=== PATIENT | female | born 1985 | race Caucasian/White ===

== ENCOUNTER 2016-07-11 06:20 | Outpatient (CLI) | payer MEDICAID ==
[~2016-07-11] VITALS: Ht 170.2 cm; Wt 145.1 kg
[~2016-07-11 06:20] MED LIST: AC500T PO; AMOX500C2 PO; AMX500CIP PO; BCP; CODE-54 PO; DCS100C PO; FAMO-119 PO; FRS325T PO; HYDR-1231 PO; HYDR-757 PO; IBP600T1 PO; IBUP-1780 PO; PNV1TABL59 PO; PRM25T PO; SUCR1TAB36 PO; TRAM50TA2 PO
--- OUTSIDE RECORDS SUMMARY | 2016-07-11 06:23 | XMS REPORT | Continuity of Care Document ---
Author Author [facility] Address Unknown Phone Unavailable Allergies Active Description Code Type Severity Reaction Onset Reported/Identified Relationship to Patient Clinical Status Yes NKANo Known Allergies NKA Miscellaneous Allergy Unknown N/ A 07/18/2005 Yes ACETAMINOPHEN ACETAMINOPHEN Mild CORICIDIN CAUSE 09/02/2005 Yes CHLORPHENAMINE CHLORPHENAMINE Mild CORICIDIN CAUSE 09/02/2005 Yes No Known Drug Allergies [id number] Drug Allergy Unknown N/ A 11/13/2007 Medications Problems Date Dx Coded Attending Type Code Diagnosis Diagnosed By 09/05/2011 Ot 346.90 MIGRAINE UNSPECIFIED W/O INTRACT MGRN W/ 09/05/2011 Ot 784.0 HEADACHE 10/28/2011 784.0 headache 10/28/2011 EMIL MILLS DO K 784.0 headache 10/28/2011 PAUL ULLOA MD 784.0 headache 10/28/2011 KARI BOWERS APRN S 784.0 headache 10/28/2011 YUMI NEWMAN LOU R 784.0 headache 10/28/2011 FELIZ MARIANO APRN R 784.0 headache 10/28/2011 GUDELIA COLES MD 784.0 headache 04/18/2012 EMIL MILLS DO K V72.42 TEST POSITIVE RESULT 04/18/2012 PAUL ULLOA MD V72.42 TEST POSITIVE RESULT 04/18/2012 KARI BOWERS APRN S V72.42 TEST POSITIVE RESULT 04/18/2012 GARETT EASON APRNINA R V72.42 TEST POSITIVE RESULT 04/18/2012 FELIZ MARIANO APRN R V72.42 TEST POSITIVE RESULT 04/18/2012 GUDELIA COLES MD V72.42 TEST POSITIVE RESULT 04/25/2012 Ot 640.03 THREATEN ABORT-ANTEPART 04/27/2012 EMIL MILLS DO 640.00 THREATENED 04/27/2012 KASSY MCCLURE MD, PAUL A 640.00 THREATENED 04/27/2012 KARI BOWERS APRN S 640.00 THREATENED 04/27/2012 LOU EASON APRN R 640.00 THREATENED 04/27/2012 FELIZ MARIANO APRN R 640.00 THREATENED 04/27/2012 GUDELIA COLES MD 640.00 THREATENED 05/03/2012 Ot 276.50 VOLUME DEPLETION, UNSPECIFIED 05/03/2012 Ot 558.9 NONINF GASTROENTERIT NEC 05/03/2012 Ot 787.03 VOMITING ALONE 07/29/2012 Ot 780.60 FEVER, UNSPECIFIED 10/23/2012 KASSY MCCLURE MD, PAUL A 388.30 ringing in the ears (tinnitus) 10/23/2012 KARI BOWERS APRN 388.30 ringing in the ears (tinnitus) 10/23/2012 LOU EASON APRN R 388.30 ringing in the ears (tinnitus) 10/23/2012 FELIZ MARIANO APRN R 388.30 ringing in the ears (tinnitus) 10/23/2012 GUDELIA COLES MD 388.30 ringing in the ears (tinnitus) 11/27/2012 JIGAR RAE DO Ot 644.03 THRT BHAKTI LABOR-ANTEPART 02/16/2013 JIGAR RAE DO Ot 648.93 OTH CURR COND-ANTEPARTUM 02/16/2013 JIGAR RAE DO Ot 789.00 ABDOMINAL PAIN, UNSPECIFIED SITE 02/25/2013 FENECH DO KIMBERLEE S Ot 644.13 THREAT LABOR NEC-ANTEPAR 02/28/2013 JIGAR RAE DO Ot 278.00 OBESITY, NOS 02/28/2013 JIGAR RAE DO Ot 648.81 ABN GLUCOSE BORIS-DELIV 02/28/2013 JIGAR RAE DO Ot 649.01 TOBACCO USE DISORDER COMP PREG/CHILDBIRT 02/28/2013 JIGAR RAE DO Ot 649.11 OBESITY COMP PREG/CHILDBIRTH/PUERPERIUM, 02/28/2013 JIGAR RAE DO Ot 659.71 ABN DEL FET HT RT/RHYTHM,W OR W/O MENTIO 02/28/2013 IJGAR RAE DO Ot 663.31 CORD ENTANGLE NEC-DELIV 02/28/2013 JIGAR RAE DO Ot V27.0 DELIVER-SINGLE LIVEBORN 02/28/2013 JIGAR RAE DO Ot V85.42 BODY MASS INDEX 45.0-49.9, ADULT 06/09/2013 KARI BOWERS APRN S 278.00 OBESITY 06/09/2013 KARI BOWERS APRN S 300.00 ANXIETY UNSPEC 06/09/2013 KARI BOWERS APRN S V70.0 EXAM - ROUTINE H&P 06/09/2013 GARETT EASON APRNINA R 278.00 OBESITY 06/09/2013 LOU EASON APRN R 300.00 ANXIETY UNSPEC 06/09/2013 LOU EASON APRN R V70.0 EXAM - ROUTINE H&P 06/09/2013 FELIZ MARIANO APRN R 278.00 OBESITY 06/09/2013 FELIZ MARIANO APRN R 300.00 ANXIETY UNSPEC 06/09/2013 FELIZ MARIANO APRN R V70.0 EXAM - ROUTINE H&P 06/09/2013 GUDELIA COLES MD 278.00 OBESITY 06/09/2013 GUDELIA COLES MD 300.00 ANXIETY UNSPEC 06/09/2013 GUDELIA COLES MD V70.0 EXAM - ROUTINE H&P 07/13/2013 GARETT EASON APRNINA R 521.00 UNSPECIFIED DENTAL CARIES 07/13/2013 LOU EASON APRN R 724.2 LUMBAGO/ LOW BACK PAIN 07/13/2013 FELIZ MARIANO APRN R 521.00 UNSPECIFIED DENTAL CARIES 07/13/2013 FELIZ MARIANO APRN R 724.2 LUMBAGO/ LOW BACK PAIN 07/13/2013 GUDELIA COLES MD 521.00 UNSPECIFIED DENTAL CARIES 07/13/2013 GUDELIA COLES MD 724.2 LUMBAGO/ LOW BACK PAIN 10/12/2013 FELIZ MARIANO APRN R 110.5 TINEA CORPORIS 10/12/2013 GUDELIA COLES MD 110.5 TINEA CORPORIS 03/11/2014 GUDELIA COLES MD V15.06 PERSONAL HISTORY OF ALLERGY TO INSECTS AND ARACHNIDS 04/04/2014 Ot 784.0 04/04/2014 ED EDMONDSON, TUCKER [place] Ot 521.00 UNSPEC DENTAL CARIES 04/04/2014 ED EDMONDSON, TUCKER [place] Ot 525.9 DENTAL DISORDER NOS 05/06/2014 JUSTIN MCLAIN ELECTRONIC ASSEMBLY Ot 634.90 SPON ABORT UNCOMPL-UNSP 05/06/2014 JUSTIN MCLAIN ELECTRONIC ASSEMBLY Ot 649.53 SPOTTING COMP , ANTEPARTUM COND 05/22/2014 Ot 784.0 05/22/2014 JUSTIN MCLAIN ELECTRONIC ASSEMBLY Ot 521.00 UNSPEC DENTAL CARIES 05/22/2014 JUSTIN MCLAIN ELECTRONIC ASSEMBLY Ot 525.9 DENTAL DISORDER NOS 05/23/2014 OMEGA SANDOVAL MD Ot 521.00 UNSPEC DENTAL CARIES 05/23/2014 OMEGA SANDOVAL MD Ot 784.92 JAW PAIN 05/23/2014 OMEGA SANDOVAL MD Ot 873.63 TOOTH (BROKEN) (FRACTURED) (DUE TO TRAUM 05/23/2014 OMEGA SANDOVAL MD Ot E000.8 OTHER EXTERNAL CAUSE STATUS 05/23/2014 OMEGA SANDOVAL MD Ot E928.9 ACCIDENT NOS 05/28/2014 ED EDMONDSON, TUCKER [place] Ot 521.00 UNSPEC DENTAL CARIES 05/28/2014 TUCKER WARD MD Ot 521.81 CRACKED TOOTH 05/28/2014 TUCKER WARD MD Ot 525.9 DENTAL DISORDER NOS 06/11/2015 Ot 784.0 06/11/2015 WEN SCHWARZ MD Ot K08.8 OTHER SPECIFIED DISORDERS OF TEETH AND S 06/11/2015 WEN SCHWARZ MD Ot Z53.21 PROC/TRTMT NOT CRD OUT D/T PT LV BEF SEE 12/25/2015 ORI EUGENE DO Ot E27.8 OTHER SPECIFIED DISORDERS OF ADRENAL GLA 12/25/2015 ORI EUGENE DO Ot E66.9 OBESITY, UNSPECIFIED 12/25/2015 ORI EUGENE DO Ot F17.210 NICOTINE DEPENDENCE, CIGARETTES, UNCOMPL 12/25/2015 ORI EUGENE DO Ot N28.1 CYST OF KIDNEY, ACQUIRED 12/25/2015 ORI EUGENE DO Ot R10.13 EPIGASTRIC PAIN 12/25/2015 Ot 784.0 HEADACHE 12/26/2015 ORI EUGENE DO Ot E27.8 OTHER SPECIFIED DISORDERS OF ADRENAL GLA 12/26/2015 ORI EUGENE DO Ot E66.9 OBESITY, UNSPECIFIED 12/26/2015 ORI EUGENE DO Ot F17.210 NICOTINE DEPENDENCE, CIGARETTES, UNCOMPL 12/26/2015 ORI EUGENE DO Ot N28.1 CYST OF KIDNEY, ACQUIRED 12/26/2015 ORI EUGENE DO Ot R10.13 EPIGASTRIC PAIN Procedures Code Description [place] [address] URINE TEST (IN-HOUSE) 04/18/2012 70721 URINE TEST (IN-HOUSE) 04/18/2012 30618 ROUTINE VENIPUNCTURE 04/27/2012 56502 HCG QUANTITATIVE 04/28/2012 73.6 02/27/2013 Results Test Result Range Complete urinalysis with reflex to culture - 12/25/15 05:22 Urine color determination YELLOW NRG Urine clarity determination SLIGHTLY CLOUDY NRG Urine pH measurement by test strip 5 5- 9 Specific gravity of urine by test strip 1.020 1.016-1.022 Urine protein assay by test strip, semi-quantitative NEGATIVE NEGATIVE Urine glucose detection by automated test strip NEGATIVE NEGATIVE Erythrocytes detection in urine sediment by light microscopy 5+ NEGATIVE Urine ketones detection by automated test strip NEGATIVE NEGATIVE Urine nitrite detection by test strip NEGATIVE NEGATIVE Urine total bilirubin detection by test strip NEGATIVE NEGATIVE Urine urobilinogen measurement by automated test strip (mass/volume) NORMAL NORMAL Urine leukocyte esterase detection by dipstick 2+ NEGATIVE Automated urine sediment erythrocyte count by microscopy (number/high power field) [HPF] NRG Automated urine sediment leukocyte count by microscopy (number/high power field ) RARE NRG Bacteria detection in urine sediment by light microscopy TRACE NRG Squamous epithelial cells detection in urine sediment by light microscopy 5-10 NRG Crystals detection in urine sediment by light microscopy NONE NRG Casts detection in urine sediment by light microscopy NONE NRG Mucus detection in urine sediment by light microscopy NEGATIVE NRG Complete urinalysis with reflex to culture NO NRG Complete blood count (CBC) with automated white blood cell (WBC) differential - 12/25/15 05:31 Blood leukocytes automated count (number/volume) 8.3 10*3/ uL 4.3-11.0 Blood erythrocytes automated count (number/volume) 4.58 10*6 /uL 4.35-5.85 Venous blood hemoglobin measurement (mass/volume) 13.9 g/dL 11.5-16.0 Blood hematocrit (volume fraction) 41 % 35-52 Automated erythrocyte mean corpuscular volume 90 [foz_us] 80-99 Automated erythrocyte mean corpuscular hemoglobin (mass per erythrocyte) 30 pg 25-34 Automated erythrocyte mean corpuscular hemoglobin concentration measurement ( mass/volume) 34 g/dL 32-36 Automated erythrocyte distribution width ratio 12.8 % 10.0-14.5 Automated blood platelet count (count/volume) 275 10*3/uL 130-400 Automated blood platelet mean volume measurement 10.4 [foz_ us] 7.4-10.4 Automated blood neutrophils/100 leukocytes 42 % 42-75 Automated blood lymphocytes/100 leukocytes 45 % 12-44 Blood monocytes/100 leukocytes 8 % 0-12 Automated blood eosinophils/100 leukocytes 5 % 0-10 Automated blood basophils/100 leukocytes 1 % 0-10 Blood neutrophils automated count (number/volume) 3.5 10*3 1.8-7.8 Blood lymphocytes automated count (number/volume) 3.7 10*3 1.0-4.0 Blood monocytes automated count (number/volume) 0.6 10*3 0.0-1.0 Automated eosinophil count 0.4 10*3/uL 0.0-0.3 Automated blood basophil count (count/volume) 0.0 10*3/uL 0.0-0.1 Comprehensive metabolic panel - 12/25/15 05:31 Serum or plasma sodium measurement (moles/volume) 139 mmol/ L 135-145 Serum or plasma potassium measurement (moles/volume) 4.3 mmol/L 3.6-5.0 Serum or plasma chloride measurement (moles/volume) 109 mmol /L 98-107 Carbon dioxide 21 mmol/L 21-32 Serum or plasma anion gap determination (moles/volume) 9 mmol/L 5-14 Serum or plasma urea nitrogen measurement (mass/volume) 14 mg/dL 7-18 Serum or plasma creatinine measurement (mass/volume) 0.71 mg /dL 0.60-1.30 Serum or plasma urea nitrogen/creatinine mass ratio 20 NRG Serum or plasma creatinine measurement with calculation of estimated glomerular filtration rate > NRG Serum or plasma glucose measurement (mass/volume) 109 mg/dL 70-105 Serum or plasma calcium measurement (mass/volume) 8.8 mg/dL 8.5-10.1 Serum or plasma total bilirubin measurement (mass/volume) 0.2 mg/dL 0.1-1.0 Serum or plasma alkaline phosphatase measurement (enzymatic activity/volume) 61 U/L 40-136 Serum or plasma aspartate aminotransferase measurement (enzymatic activity/ volume) 15 U/L 5-34 Serum or plasma alanine aminotransferase measurement (enzymatic activity/volume ) 21 U/L 0-55 Serum or plasma protein measurement (mass/volume) 7.0 g/dL 6.4-8.2 Serum or plasma albumin measurement (mass/volume) 3.8 g/dL 3.2-4.5 Serum or plasma amylase measurement (enzymatic activity/volume) - 12/25/15 05: 31 Serum or plasma amylase measurement (enzymatic activity/volume) 55 U/L 25-125 Lipase - 12/25/15 05:31 Lipase 60 U/L 8-78 Encounters ACCT No. Visit Date/Time Discharge Status Pt. Type Provider Facility Loc./Unit Complaint [id number] 03/11/2014 11:34:00 03/11/2014 23: 59:59 CLS Outpatient GUDELIA COLES MD [id number] 10/12/2013 14:34:00 10/12/2013 23: 59:59 CLS Outpatient FELIZ MARIANO APRN [id number] 07/13/2013 16:02:00 07/13/2013 23: 59:59 CLS Outpatient LOU EASON APRN [id number] 06/09/2013 09:53:00 06/09/2013 23: 59:59 CLS Outpatient KARI BOWERS APRN [id number] 10/23/2012 11:38:00 10/23/2012 23: 59:59 CLS Outpatient PAUL ULLOA MD [id number] 04/27/2012 14:48:00 04/27/2012 23: 59:59 [place] [id number] 04/18/2012 09:13:00 04/18/2012 23: 59:59 CLS Outpatient
[2016-07-11] MEDS ORDERED: LOVA10TA PO (15:22)
[2016-07-11] MEDS ORDERED: DICY10CA12 PO (15:22)
[2016-07-11] MEDS ORDERED: SPIR100T2 PO (15:22)
== END 2016-07-11 15:25 ==
LOC: PREOP 06:20
PROVIDERS: ATTEND Surgery
DX: Z01.818 Encounter for other preprocedural examination (principal); K21.9 Gastro-esophageal reflux disease without esophagitis; R10.12 Left upper quadrant pain

== ENCOUNTER 2016-07-16 07:58 | Day surgery (SDC) | payer MEDICAID ==
[~2016-07-16] VITALS: Ht 170.2 cm; Wt 145.1 kg
[~2016-07-16 07:58] MED LIST changes: +DICY10CA12 PO; +LOVA10TA PO; +SPIR100T2 PO
--- OUTSIDE RECORDS SUMMARY | 2016-07-16 08:02 | XMS REPORT | Continuity of Care Document ---
Author Author [facility] Address Unknown Phone Unavailable Allergies Active Description Code Type Severity Reaction Onset Reported/Identified Relationship to Patient Clinical Status Yes NKANo Known Allergies NKA Miscellaneous Allergy Unknown N/ A 07/18/2005 Yes ACETAMINOPHEN ACETAMINOPHEN Mild CORICIDIN CAUSE 09/02/2005 Yes CHLORPHENAMINE CHLORPHENAMINE Mild CORICIDIN CAUSE 09/02/2005 Yes No Known Drug Allergies [id number] Drug Allergy Unknown N/ A 11/13/2007 Medications [...] FET HT RT/RHYTHM,W OR W/O MENTIO 02/28/2013 JIGAR RAE DO Ot 663.31 CORD ENTANGLE NEC-DELIV [...] 525.9 DENTAL DISORDER NOS 05/06/2014 JUSTIN MCLAIN BODY AND FRAME MAN Ot 634.90 SPON ABORT UNCOMPL-UNSP 05/06/2014 JUSTIN MCLAIN BODY AND FRAME MAN Ot 649.53 SPOTTING COMP , ANTEPARTUM COND 05/22/2014 Ot 784.0 05/22/2014 JUSTIN MCLAIN BODY AND FRAME MAN Ot 521.00 UNSPEC DENTAL CARIES 05/22/2014 JUSTIN MCLAIN BODY AND FRAME MAN Ot 525.9 DENTAL DISORDER NOS 05/23/2014 OMEGA [...] ORI EUGENE DO Ot R10.13 EPIGASTRIC PAIN 07/12/2016 LUIS MENDOZA RANDOLPH Angela Ot K21.9 GASTRO-ESOPHAGEAL REFLUX DISEASE WITHOUT 07/12/2016 RANDOLPH SMITH DO Ot R10.12 LEFT UPPER QUADRANT PAIN 07/12/2016 SMITH RANDOLPH MENDOZA Ot Z01.818 ENCOUNTER FOR OTHER PREPROCEDURAL EXAMIN Procedures Code Description [place] [address] URINE TEST (IN-HOUSE) 04/18/2012 73953 URINE TEST (IN-HOUSE) 04/18/2012 54779 ROUTINE VENIPUNCTURE 04/27/2012 61123 HCG QUANTITATIVE 04/28/2012 73.6 02/27/2013 Results Test [...] Status Pt. Type Provider Facility Loc./Unit Complaint [id number] 03/11/2014 11:34:00 03/11/2014 23: 59:59 CLS Outpatient GUDELIA CLOES MD [id number] 10/12/2013 14:34:00 10/12/2013 23: 59:59 CLS Outpatient FELIZ MARIANO APRN [id number] 07/13/2013 16:02:00 07/13/2013 23: 59:59 CLS Outpatient LOU EASON APRN [id number] 06/09/2013 09:53:00 06/09/2013 23: 59:59 CLS Outpatient KARI BOWERS APRN [id number] 10/23/2012 11:38:00 10/23/2012 23: 59:59 CLS Outpatient KASSY MCCLURE MD, PAUL Ch [id number] 04/27/2012 14:48:00 04/27/2012 23: 59:59 [place] [id number] 04/18/2012 09:13:00 04/18/2012 23: 59:59 CLS Outpatient
--- OUTSIDE RECORDS SUMMARY | 2016-07-16 08:02 | XMS REPORT | Continuity of Care Document ---
Author Author [facility] Address Unknown Phone Unavailable Allergies Active Description Code Type Severity Reaction Onset Reported/Identified Relationship to Patient Clinical Status Yes NKANo Known Allergies NKA Miscellaneous Allergy Unknown N/ A 07/18/2005 Yes ACETAMINOPHEN ACETAMINOPHEN Mild CORICIDIN CAUSE 09/02/2005 Yes CHLORPHENAMINE CHLORPHENAMINE Mild CORICIDIN CAUSE 09/02/2005 Yes No Known Drug Allergies [id number] Drug Allergy Unknown N/ A 11/13/2007 Medications [...] 525.9 DENTAL DISORDER NOS 05/06/2014 JUSTIN MCLAIN LENS GENERATOR Ot 634.90 SPON ABORT UNCOMPL-UNSP 05/06/2014 JUSTIN MCLAIN LENS GENERATOR Ot 649.53 SPOTTING COMP , ANTEPARTUM COND 05/22/2014 Ot 784.0 05/22/2014 JUSTIN MCLAIN LENS GENERATOR Ot 521.00 UNSPEC DENTAL CARIES 05/22/2014 JUSTIN MCLAIN LENS GENERATOR Ot 525.9 DENTAL DISORDER NOS 05/23/2014 OMEGA [...] Procedures Code Description [place] [address] URINE TEST (IN-HOUSE) 04/18/2012 55442 URINE TEST (IN-HOUSE) 04/18/2012 60330 ROUTINE VENIPUNCTURE 04/27/2012 07865 HCG QUANTITATIVE 04/28/2012 73.6 02/27/2013 Results Test [...] Status Pt. Type Provider Facility Loc./Unit Complaint [id number] 03/11/2014 11:34:00 03/11/2014 23: 59:59 CLS Outpatient GUDELIA COLES MD [id number] 10/12/2013 14:34:00 10/12/2013 23: 59:59 CLS Outpatient FELIZ MARIANO APRN [id number] 07/13/2013 16:02:00 07/13/2013 23: 59:59 CLS Outpatient LOU EASON APRN [id number] 06/09/2013 09:53:00 06/09/2013 23: 59:59 CLS Outpatient KARI BOWERS APRN [id number] 10/23/2012 11:38:00 10/23/2012 23: 59:59 CLS Outpatient KASSY MCCLURE MD, PAUL Ch [id number] 04/27/2012 14:48:00 04/27/2012 23: 59:59 [place] [id number] 04/18/2012 09:13:00 04/18/2012 23: 59:59 CLS Outpatient
[2016-07-16] MEDS ORDERED: NS IV 1000 ML 1,000 ML ONE (08:08)
[2016-07-16 08:34] VITALS: BP 111/64
[2016-07-16] MEDS ORDERED: NS IV 1000 ML 1,000 ML IV STA (08:39)
[2016-07-16] MEDS ORDERED: FLUMAZENIL (ROMAZICON) 0.1 MG/ML 5 ML VIAL INJ PRN (08:45)
[2016-07-16] MEDS ORDERED: HURRICAINE EXT TUBE (BENZOCAINE) XX PRN (08:45)
[2016-07-16] MEDS ORDERED: fentaNYL INJECTION 100 MCG/2 ML AMP IVP PRN (08:45)
[2016-07-16] MEDS ORDERED: MIDAZOLAM 2 MG/2 ML (VERSED) VIAL IVP PRN (08:45)
[2016-07-16] MEDS ORDERED: NALOXONE 0.4 MG/ML 1 ML (NARCAN) VIAL IVP PRN (08:45)
[2016-07-16] MEDS ORDERED: proPOfol 200 MG/20 ML (DIPRIVAN) VIAL IV ONE ×2 (08:54→09:40)
[2016-07-16] MEDS ORDERED: MIDAZOLAM 2 MG/2 ML (VERSED) VIAL ONE (08:54)
--- NOTE | 2016-07-16 09:10 | Progress Note-Pre Operative ---
Pre-Operative Progress Note H&P Reviewed The H&P was reviewed, patient examined and no changes noted. Date H&P Reviewed: Jul 16, 2016 Time H&P Reviewed: 09:10 Pre-Operative Diagnosis: gerd, left upper quadrant pain RANDOLPH SMITH DO Jul 16, 2016 9:10 am
[2016-07-16] MEDS ORDERED: OMEP20TA33 PO (09:47)
[2016-07-16] MEDS ORDERED: SUCR1TAB36 PO (09:47)
--- NOTE | 2016-07-16 09:49 | Discharge Inst-Simple/Standard ---
Discharge Inst-Standard Discharge Medications New, Converted or Re-Newed RX: Transmitted to Pharmacy Patient Instructions/Follow Up Plan of Care/Instructions/FU: Follow up with Dr. Henry in 2 weeks Take medications as directed Stop Ibuprofen Activity as Tolerated: Yes Discharge Diet: No Restrictions FLY SERNA APRN Jul 16, 2016 09:49
--- NOTE | 2016-07-16 09:53 | Progress Note-Post Operative ---
Post-Operative Progess Note Pre-Operative Diagnosis gerd, left upper quadrant pain Post-Operative Diagnosis duodenitis, gastritis, healing ulcer, hiatal hernia, esophagitis Post-Op Procedure Note Date of Procedure: Jul 16, 2016 Name of Procedure: egd c biopsies Procedure Note/Findings see note Anesthesia Type per habitat conservation planner Estimated blood loss (mL): none Specimen(s) collected antrum, distal esophagus RANDOLPH SMITH DO Jul 16, 2016 9:52 am
[2016-07-16] MEDS ORDERED: HURRICAINE EXT TUBE (BENZOCAINE) ONE (10:05)
[2016-07-16 10:15] VITALS: BP 120/70
[2016-07-16 10:45] VITALS: BP 118/71
[2016-07-16 11:05] VITALS: BP 118/71
--- NOTE | 2016-07-16 13:23 | OPERATIVE REPORT ---
PROCEDURE PHYSICIAN: RANDOLPH SMITH DATE OF PROCEDURE: 07/16/2016 PREOPERATIVE DIAGNOSIS: GERD, Left upper quadrant abdominal pain, POSTOPERATIVE DIAGNOSES: 1. Duodenitis. 2. Gastritis. 3. Healing ulcer stomach. 4. Hiatal hernia. 5. Esophagitis. PROCEDURE: EGD with biopsies. SURGEON: Elaine. ANESTHESIA: Per MARBLE RUBBER. ESTIMATED BLOOD LOSS: None. COMPLICATIONS: None. INDICATIONS: The patient is a 31-year-old female who has left upper quadrant abdominal pain and reflux symptoms. The patient understands risks and benefits of procedure and wished to proceed with the procedure. Consent was signed on the chart. PROCEDURE: The patient was taken to the endoscopy suite, placed in left lateral recumbent position. Timeout was performed. The scope was inserted in the mouth, down the esophagus, stomach and into the duodenum without difficulty. The first part of the duodenum had some erythematous changes consistent with duodenitis. The second part had normal appearance. The scope was slowly retracted back into the stomach where it was further insufflated demonstrating erythematous changes and some slight friability of the mucosa. Biopsy of the antrum was obtained. The scope was also retroflexed as well noting a small hiatal hernia. Some small healing ulcers appearance was present as well. The scope was slowly retracted back to the distal esophagus, which had erythematous changes. There is possibly a short segment of Choudhary's which biopsy was obtained. The scope was slowly retracted with completely removed noting no other pathology. The patient tolerated the procedure well without any complications. She was taken to recovery room in stable condition. RECOMMENDATIONS: The patient will be on Prilosec 20 mg twice a day and Carafate 1 gram 4 times a day. We will see how she is doing in approximately 3 weeks and follow-up on biopsies. Job ID: [id number] Dictated Date: 07/16/2016 09:55:30 Registered Respiratory Technician Date: 07/16/2016 13:15:17 / betzy
== END 2016-07-16 11:05 | disposition home or self-care (01) ==
LOC: ENDO 07:58
PROVIDERS: ATTEND Surgery
DX: K21.9 Gastro-esophageal reflux disease without esophagitis (principal); K44.9 Diaphragmatic hernia without obstruction or gangrene; K20.9 Esophagitis, unspecified; K29.70 Gastritis, unspecified, without bleeding; K29.80 Duodenitis without bleeding; K25.7 Chronic gastric ulcer without hemorrhage or perforation
CPT/HCPCS: 84703; 88305

== ENCOUNTER 2017-02-15 03:56 | Emergency (ER) | payer MEDICAID, OTHER ==
[~2017-02-15] VITALS: Ht 170.2 cm; Wt 127.0 kg
[~2017-02-15 03:56] MED LIST changes: +OMEP20TA33 PO
[2017-02-15] MEDS ORDERED: NS IV 1000 ML 1,000 ML IV ONE (04:16)
[2017-02-15] MEDS ORDERED: NORG1TAB7 (04:18)
[2017-02-15] MEDS ORDERED: PANT40TA3 (04:18)
[2017-02-15] MEDS ORDERED: SUCR1TAB (04:18)
[2017-02-15 04:21] LABS: BILIRUBIN,URINE NEGATIVE (NEGATIVE); KETONES,URINE NEGATIVE (NEGATIVE); LEUKOCYTE ESTERASE ,URINE 3+ (NEGATIVE); NITRITE,URINE NEGATIVE (NEGATIVE); PH,URINE 5 (5-9); PROTEIN,URINE 2+ (NEGATIVE); UROBILINOGEN,URINE NORMAL (NORMAL)
[2017-02-15 04:28] LABS: WBC,URINE 0-2 /HPF
[2017-02-15] MEDS ORDERED: FAMOTIDINE 20MG/2ML IV (PEPCID) IVP ONE (04:30)
[2017-02-15] MEDS ORDERED: ONDANSETRON 4 MG/2 ML (SDV) Z0FRAN IVP ONE (04:30)
[2017-02-15 04:42] LABS: BASOPHILS % (AUTO) 0 % (0-10); EOSINOPHILS # (AUTO) 0.3 10^3/uL (0.0-0.3); EOSINOPHILS % (AUTO) 2 % (0-10); LYMPHOCYTES # (AUTO) 2.6 X 10^3 (1.0-4.0); LYMPHOCYTES % (AUTO) 15 % (12-44); MEAN CORPUSCULAR HEMOGLOBIN 31 PG (25-34); MEAN CORPUSCULAR HGB CONC 34 G/DL (32-36); MEAN CORPUSCULAR VOLUME 91 FL (80-99); MEAN PLATELET VOLUME 10.1 FL (7.4-10.4); MONOCYTES # (AUTO) 1.5 X 10^3 (0.0-1.0); MONOCYTES % (AUTO) 8 % (0-12); NEUTROPHILS % (AUTO) 75 % (42-75); PLATELET COUNT 339 10^3/uL (130-400); RED BLOOD COUNT 5.22 10^6/uL (4.35-5.85); RED CELL DISTRIBUTION WIDTH 12.9 % (10.0-14.5); WHITE BLOOD COUNT 17.4 10^3/uL (4.3-11.0)
[2017-02-15 05:01] LABS: ALANINE AMINOTRANSFERASE 31 U/L (0-55); ALBUMIN 4.4 GM/DL (3.2-4.5); ANION GAP 15 MMOL/L (5-14); ASPARTATE AMINO TRANSFERASE 22 U/L (5-34); BAND NEUTROPHILS 3 %; BASOPHILS % (MANUAL) 0 %; BILIRUBIN,TOTAL 0.6 MG/DL (0.1-1.0); BLOOD UREA NITROGEN 12 MG/DL (7-18); BUN/CREATININE RATIO 14; CALCIUM 9.9 MG/DL (8.5-10.1); CARBON DIOXIDE 19 MMOL/L (21-32); CHLORIDE 106 MMOL/L (98-107); CREATININE SERUM 0.85 MG/DL (0.60-1.30); EOSINOPHILS % (MANUAL) 2 %; GFR ESTIMATED > 60; GLUCOSE 118 MG/DL (70-105); LIPASE 31 U/L (8-78); LYMPHOCYTES % (MANUAL) 12 %; NEUTROPHILS % (MANUAL) 69 %; POTASSIUM 3.9 MMOL/L (3.6-5.0); REACTIVE LYMPHOCYTES 8 %; SODIUM 140 MMOL/L (135-145); TOTAL PROTEIN 8.9 GM/DL (6.4-8.2)
--- NOTE | 2017-02-15 05:04 | ED GI ---
General Chief Complaint: Abdominal/GI Problems Stated Complaint: VOMITING,NAUSEA,DIARRHEA Nursing Triage Note: PT TO ED 10 W/ C/O N/V/D ONSET X3 DAYS, WORSE SINCE 0000. Sepsis Screen: No Definite Risk Source of Information: Patient Exam Limitations: No Limitations History of Present Illness Time Seen By Provider: 04:05 Initial Comments This 31-year-old woman presents to the emergency room with complaints of nausea , vomiting, and diarrhea for the past 2 days. Symptoms became severe this morning. She has a log stated daily upper abdominal pain from chronic gastritis for which she is being treated by Dr. Henry. She denies any fever but does have diffuse myalgias. Allergies and Home Medications Allergies Coded Allergies: NKANo Known Allergies (Verified Allergy, Unknown, 07/18/05) Home Medications Dicyclomine HCl 10 Mg Capsule, 10 MG PO TID, (Reported) Lovastatin 10 Mg Tablet, 10 MG PO DAILY, (Reported) Norgestimate-Ethinyl Estradiol 1 Each Tablet, (Reported) Omeprazole Magnesium 20 Mg Tablet., 20 MG PO BID, #60 Ref 3 Prescribed by: FLY JACOBSON on 07/16/16 0947 Ondansetron 4 Mg Tab.rapdis, 4 MG SL Q4H PRN for NAUSEA/VOMITING-1ST LINE, #10 Prescribed by: TUCKER CLINE on 02/15/17 0534 Pantoprazole Sodium 40 Mg Tablet., (Reported) Spironolactone 100 Mg Tablet, 100 MG PO BID, (Reported) Sucralfate 1 Gm Tablet, 1 GM PO QID, #120 Prescribed by: FLY JACOBSON on 07/16/16 0947 Sucralfate 1 Gm Tablet, (Reported) Review of Systems Constitutional: see HPI EENTM: No Symptoms Reported Respiratory: No Symptoms Reported Cardiovascular: No Symptoms Reported Gastrointestinal: See HPI Genitourinary: No Symptoms Reported Musculoskeletal: see HPI Skin: no symptoms reported Psychiatric/Neurological: No Symptoms Reported Endocrine: No Symptoms Reported Hematologic/Lymphatic: No Symptoms Reported Past Sjkkwes-Siohan-Bwekwl Hx Patient Social History Alcohol Use: Denies Use Recreational Drug Use: No Smoking Status: Current Everyday Smoker Type Used: Cigarettes Recent Foreign Travel: No Contact w/Someone Who Travel: No Recent Infectious Disease Expo: No Recent Hopitalizations: No Physical Abuse: No Sexual Abuse: No Mistreated: No Fear: No Immunizations Up To Date Tetanus Booster (TDap): Unknown Date of Influenza Vaccine: Feb 17, 2012 Seasonal Allergies Seasonal Allergies: No Surgeries History of Surgeries: Yes (DENTAL) Surgeries: Abdominal (EGD) Respiratory History of Respiratory Disorde: No Cardiovascular History of Cardiac Disorders: Yes Cardiac Disorders: Hypertension Neurological History of Neurological Disord: No Reproductive System : No Hx Reproductive Disorders: Yes ("LOW TESTOSTERONE" ) Sexually Transmitted Disease: No HIV/AIDS: No Female Reproductive Disorders: Denies Genitourinary History of Genitourinary Disor: No Gastrointestinal History of Gastrointestinal Di: Yes (chronic gastritis) Gastrointestinal Disorders: Gastroesophageal Reflux Musculoskeletal History of Musculoskeletal Dis: Yes Musculoskeletal Disorders: Chronic Back Pain Endocrine History of Endocrine Disorders: No HEENT History of HEENT Disorders: No Cancer History of Cancer: No Psychosocial History of Psychiatric Problem: Yes Behavioral Health Disorders: Anxiety Suicide Risk Score: 0 Integumentary History of Skin or Integumenta: No Blood Transfusions History of Blood Disorders: No Adverse Reaction to a Blood Tr: No Physical Exam Vital Signs VS - Last 72 Hours, by Label 02/15/17 04:05 Temp 98.6 Pulse 95 Resp 20 B/P (MAP) 140/93 Pulse Ox 96 O2 Delivery Room Air Capillary Refill : Less Than 3 Seconds General Appearance: WD/WN, no apparent distress HEENT: PERRL/EOMI, normal ENT inspection, pharynx normal, other (oropharynx somewhat dry) Neck: normal inspection Respiratory: lungs clear, normal breath sounds, no respiratory distress, no accessory muscle use Cardiovascular: no edema, no murmur, tachycardia Gastrointestinal: normal bowel sounds, soft, tenderness (epigastrium) Extremities: normal inspection, no pedal edema Neurologic/Psychiatric: production assistant II-XII nml as tested, no motor/sensory deficits, alert, normal mood/affect, oriented x 3 Skin: normal color, warm/dry Progress/Results/Core Measures Results/Orders Lab Results Laboratory Tests Test 02/15/17 04:14 02/15/17 04:28 Range/Units Urine Color YELLOW Urine Clarity CLOUDY H Urine pH 5 5-9 Urine Specific [place] 1.020 1.016-1.022 Urine Protein 2+ H NEGATIVE Urine Glucose (UA) NEGATIVE NEGATIVE Urine Ketones NEGATIVE NEGATIVE Urine Nitrite NEGATIVE NEGATIVE Urine Bilirubin NEGATIVE NEGATIVE Urine Urobilinogen NORMAL NORMAL MG/DL Urine Leukocyte Esterase 3+ H NEGATIVE Urine RBC (Auto) 4+ H NEGATIVE Urine RBC 0-2 /HPF Urine WBC 0-2 /HPF Urine Squamous Epithelial Cells 10-25 H /HPF Urine Crystals NONE /LPF Urine Bacteria LARGE H /HPF Urine Casts NONE /LPF Urine Mucus SMALL H /LPF Urine Culture Indicated YES White Blood Count 17.4 H 4.3-11.0 10^3/uL Red Blood Count 5.22 4.35-5.85 10^6/uL Hemoglobin 16.0 11.5-16.0 G/DL Hematocrit 47 35-52 % Mean Corpuscular Volume 91 80-99 FL Mean Corpuscular Hemoglobin 31 25-34 PG Mean Corpuscular Hemoglobin Concent 34 32-36 G/DL Red Cell Distribution Width 12.9 10.0-14.5 % Platelet Count 339 130-400 10^3/uL Mean Platelet Volume 10.1 7.4-10.4 FL Neutrophils (%) (Auto) 75 42-75 % Lymphocytes (%) (Auto) 15 12-44 % Monocytes (%) (Auto) 8 0-12 % Eosinophils (%) (Auto) 2 0-10 % Basophils (%) (Auto) 0 0-10 % Neutrophils # (Auto) 13.0 H 1.8-7.8 X 10^3 Lymphocytes # (Auto) 2.6 1.0-4.0 X 10^3 Monocytes # (Auto) 1.5 H 0.0-1.0 X 10^3 Eosinophils # (Auto) 0.3 0.0-0.3 10^3/uL Basophils # (Auto) 0.0 0.0-0.1 10^3/uL Neutrophils % (Manual) 69 % Lymphocytes % (Manual) 12 % Monocytes % (Manual) 6 % Eosinophils % (Manual) 2 % Basophils % (Manual) 0 % Band Neutrophils 3 % Reactive Lymphocytes 8 % Blood Morphology Comment NORMAL Sodium Level 140 135-145 MMOL/L Potassium Level 3.9 3.6-5.0 MMOL/L Chloride Level 106 98-107 MMOL/L Carbon Dioxide Level 19 L 21-32 MMOL/L Anion Gap 15 H 5-14 MMOL/L Blood Urea Nitrogen 12 7-18 MG/DL Creatinine 0.85 0.60-1.30 MG/DL Estimat Glomerular Filtration Rate > 60 BUN/Creatinine Ratio 14 Glucose Level 118 H 70-105 MG/DL Calcium Level 9.9 8.5-10.1 MG/DL Total Bilirubin 0.6 0.1-1.0 MG/DL Aspartate Amino Transf (AST/SGOT) 22 5-34 U/L Alanine Aminotransferase (ALT/SGPT) 31 0-55 U/L Alkaline Phosphatase 80 40-136 U/L Total Protein 8.9 H 6.4-8.2 GM/DL Albumin 4.4 3.2-4.5 GM/DL Lipase 31 8-78 U/L My Orders Orders - TUCKER WARD MD Cbc With Automated Diff (02/15/17 04:16) Comprehensive Metabolic Panel (02/15/17 04:16) Lipase (02/15/17 04:16) Ua Culture If Indicated (02/15/17 04:16) Saline Lock/Iv-Start (02/15/17 04:16) Ns Iv 1000 Ml (Sodium Chloride 0.9%) (02/15/17 04:16) Famotidine Injection (Pepcid Injection) (02/15/17 04:30) Ondansetron Injection (Zofran Injectio (02/15/17 04:30) Urine Culture (02/15/17 04:14) Manual Differential (02/15/17 04:28) Ketorolac Injection (Toradol Injection) (02/15/17 05:15) Rx-Ondansetron Po (Rx-Zofran Po) (02/15/17 05:30) Medications Given in ED Current Medications Medications Dose Ordered Sig/Moises Route Start Time Stop Time Status Last Admin Dose Admin Famotidine 20 mg ONCE ONCE IVP 02/15/17 04:30 02/15/17 04:31 DC 02/15/17 04:32 20 MG Ketorolac Tromethamine 30 mg ONCE ONCE IVP 02/15/17 05:15 02/15/17 05:16 DC 02/15/17 05:19 30 MG Ondansetron HCl 8 mg ONCE ONCE IVP 02/15/17 04:30 02/15/17 04:31 DC 02/15/17 04:31 8 MG Sodium Chloride 1,000 ml @ 0 mls/hr Q0M ONCE IV 02/15/17 04:16 02/15/17 04:17 DC 02/15/17 04:31 1,000 MLS/HR Vital Signs/I&O Vital Sign - Last 12Hours 02/15/17 04:05 Temp 98.6 Pulse 95 Resp 20 B/P (MAP) 140/93 Pulse Ox 96 O2 Delivery Room Air Blood Pressure Mean: 109 Progress Note : Progress Note Patient was treated with Pepcid, Zofran, IV fluids, and Toradol. She felt much better prior to dismissal. Leukocytosis was likely secondary to vomiting. Departure Impression Impression: Primary Impression: Nausea vomiting and diarrhea Additional Impressions: Leukocytosis Qualified Codes: D72.829 - Elevated white blood cell count, unspecified Gastritis Qualified Codes: K29.70 - Gastritis, unspecified, without bleeding Disposition: HOME, SELF-CARE Condition: Improved Departure-Patient Inst. Decision time for Depature: 05:30 Referrals: [facility] (PCP/Family) Primary Care Physician Patient Instructions: Acute Abdomen (Belly Pain), Adult (DC) Add. Discharge Instructions: Sip on plenty of clear liquids. Continue with your medications as previously prescribed. Gradually advance your diet with small quantities of bland food as tolerated. Dissolve Zofran under the tongue every 4 hours as needed for nausea and vomiting. Return to the emergency room if symptoms worsen. All discharge instructions reviewed with patient and/or family. Voiced understanding. Scripts Ondansetron (Zofran Odt) 4 Mg Tab.rapdis 4 MG SL Q4H Y for NAUSEA/VOMITING-1ST LINE, #10 TAB Prov: TUCKER WARD MD 02/15/17 TUCKER WARD MD Feb 15, 2017 05:04
[2017-02-15] MEDS ORDERED: KETOROLAC 30 MG/ML VIAL IVP ONE (05:15)
[2017-02-15] MEDS ORDERED: RX-ONDANSETRON 4 MG ODT (ZOFRAN) PPK #4 SL STA (05:30)
[2017-02-15] MEDS ORDERED: ONDA4TAB8 SL (05:34)
[2017-02-15 05:49] VITALS: BP 134/88
== END 2017-02-15 05:49 | disposition home or self-care (01) ==
LOC: EDUNIT# 03:56 → ER 04:00
DX: K29.70 Gastritis, unspecified, without bleeding (principal); D72.829 Elevated white blood cell count, unspecified; I10 Essential (primary) hypertension; K21.9 Gastro-esophageal reflux disease without esophagitis; F41.9 Anxiety disorder, unspecified; F17.210 Nicotine dependence, cigarettes, uncomplicated
CPT/HCPCS: 36415; 80053; 81000; 83690; 85007; 85027; 87088; 96361; 96374; 96375

== ENCOUNTER 2017-09-16 03:16 | Emergency (ER) | payer SELFPAY ==
[~2017-09-16] VITALS: Ht 170.2 cm; Wt 149.7 kg
[~2017-09-16 03:16] MED LIST changes: +NORG1TAB7 PO; +ONDA4TAB8 SL; +PANT40TA3 PO; +SUCR1TAB PO
--- OUTSIDE RECORDS SUMMARY | 2017-09-16 03:24 | XMS REPORT | Continuity of Care Document ---
Author Author [facility] Address Unknown Phone Unavailable Allergies Active Description Code Type Severity Reaction Onset Reported/Identified Relationship to Patient Clinical Status Yes NKANo Known Allergies NKA Miscellaneous Allergy Unknown N/A 07/18/2005 Yes ACETAMINOPHEN ACETAMINOPHEN Mild CORICIDIN CAUSE 09/02/2005 Yes CHLORPHENAMINE CHLORPHENAMINE Mild CORICIDIN CAUSE 09/02/2005 Yes No Known Drug Allergies [id number] Drug Allergy Unknown N/A 11/13/2007 Medications There is no data. Problems Date Dx Coded Attending Type Code Diagnosis Diagnosed By 11/08/2007 Ot 625.9 11/08/2007 Ot 646.83 11/09/2007 Ot 623.5 11/09/2007 Ot 654.73 09/05/2011 Ot 346.90 MIGRAINE UNSPECIFIED W/O INTRACT MGRN W/ 09/05/2011 Ot 784.0 HEADACHE 10/28/2011 784.0 headache 10/28/2011 EMIL MILLS DO K 784.0 headache 10/28/2011 KASSY MCCLURE MD, PAUL A 784.0 headache 10/28/2011 KARI BOWERS APRN S 784.0 headache 10/28/2011 LOU EASON APRN R 784.0 headache 10/28/2011 FELIZ MARIANO APRN R 784.0 headache 10/28/2011 GUDELIA COLES MD 784.0 headache 04/18/2012 EMIL MILLS DO V72.42 TEST POSITIVE RESULT 04/18/2012 PAUL ULLOA MD V72.42 TEST POSITIVE RESULT 04/18/2012 KARI BOWERS APRN S V72.42 TEST POSITIVE RESULT 04/18/2012 LOU EASON APRN R V72.42 TEST POSITIVE RESULT 04/18/2012 FELIZ MARIANO APRN R V72.42 TEST POSITIVE RESULT 04/18/2012 GUDELIA COLES MD V72.42 TEST POSITIVE RESULT 04/25/2012 Ot 640.03 THREATEN ABORT-ANTEPART 04/27/2012 EMIL MILLS DO 640.00 THREATENED 04/27/2012 PAUL ULLOA MD 640.00 THREATENED 04/27/2012 KARI BOWERS APRN S 640.00 THREATENED 04/27/2012 YUMI NEWMAN, LOU R 640.00 THREATENED 04/27/2012 FELIZ MARIANO APRN R 640.00 THREATENED 04/27/2012 GUDELIA COLES MD 640.00 THREATENED 05/03/2012 Ot 276.50 VOLUME DEPLETION, UNSPECIFIED 05/03/2012 Ot 558.9 NONINF GASTROENTERIT NEC 05/03/2012 Ot 787.03 VOMITING ALONE 07/29/2012 Ot 780.60 FEVER, UNSPECIFIED 10/23/2012 KASSY MCCLURE MD, PAUL Ch 388.30 ringing in the ears (tinnitus) 10/23/2012 KARI BOWERS APRN S 388.30 ringing in the ears (tinnitus) 10/23/2012 GARETT EASON APRNINA R 388.30 ringing in the ears (tinnitus) 10/23/2012 FELIZ MARIANO APRN R 388.30 ringing in the ears (tinnitus) 10/23/2012 GUDELIA COLES MD 388.30 ringing in the ears (tinnitus) 11/27/2012 JIGAR RAE DO Ot 644.03 THRT BHAKTI LABOR-ANTEPART 02/16/2013 JIGAR RAE DO Ot 648.93 OTH CURR COND-ANTEPARTUM 02/16/2013 JIGAR RAE DO Ot 789.00 ABDOMINAL PAIN, UNSPECIFIED SITE 02/25/2013 FENECH DOKIMBERLEE S Ot 644.13 THREAT LABOR NEC-ANTEPAR 02/28/2013 JIGAR RAE DO Ot 278.00 OBESITY, NOS 02/28/2013 JIGAR RAE DO Ot 648.81 ABN GLUCOSE BORIS-DELIV 02/28/2013 JIGAR RAE DO Ot 649.01 TOBACCO USE DISORDER COMP PREG/CHILDBIRT 02/28/2013 JIGAR RAE DO Ot 649.11 OBESITY COMP PREG/CHILDBIRTH/PUERPERIUM, 02/28/2013 JIGAR RAE DO Ot 659.71 ABN DEL FET HT RT/RHYTHM,W OR W/O MENTIO 02/28/2013 JIGAR RAE DO Stella Ot 663.31 CORD ENTANGLE NEC-DELIV 02/28/2013 KYRA MENDOZA JIGAR Douglas Ot V27.0 DELIVER-SINGLE LIVEBORN 02/28/2013 JIGAR RAE DO Ot V85.42 BODY MASS INDEX 45.0-49.9, ADULT 06/09/2013 KARI BOWERS APRN S 278.00 OBESITY 06/09/2013 KARI BOWERS APRN S 300.00 ANXIETY UNSPEC 06/09/2013 KARI BOWERS APRN S V70.0 EXAM - ROUTINE H&P 06/09/2013 LOU EASON APRN R 278.00 OBESITY 06/09/2013 GARETT EASON APRNINA R 300.00 ANXIETY UNSPEC 06/09/2013 LOU EASON APRN R V70.0 EXAM - ROUTINE H&P 06/09/2013 FELIZ MARIANO APRN R 278.00 OBESITY 06/09/2013 SHARITA MARIANO APRNIA R 300.00 ANXIETY UNSPEC 06/09/2013 RODOLFO MARIANO APRNRICIA R V70.0 EXAM - ROUTINE H&P 06/09/2013 GUDELIA COLES MD 278.00 OBESITY 06/09/2013 GUDELIA COLES MD 300.00 ANXIETY UNSPEC 06/09/2013 GUDELIA COLES MD V70.0 EXAM - ROUTINE H&P 07/13/2013 LOU EASON APRN R 521.00 UNSPECIFIED DENTAL CARIES 07/13/2013 LOU EASON APRN R 724.2 LUMBAGO/ LOW BACK PAIN 07/13/2013 SHARITA MARIANO APRNIA R 521.00 UNSPECIFIED DENTAL CARIES 07/13/2013 FELIZ [...] [place] Ot 521.00 UNSPEC DENTAL CARIES 04/04/2014 TUCKER WARD MD Ot 525.9 DENTAL DISORDER NOS 05/06/2014 JUSTIN MCLAIN [employer] Ot 634.90 SPON ABORT UNCOMPL-UNSP 05/06/2014 JUSTIN MCLAIN [employer] Ot 649.53 SPOTTING COMP , ANTEPARTUM COND 05/22/2014 Ot 784.0 05/22/2014 JUSTIN CMLAIN [employer] TE[employer]ER Ot 521.00 UNSPEC DENTAL CARIES 05/22/2014 JUSTIN MCLAIN [employer] TE[employer]ER Ot 525.9 DENTAL DISORDER NOS 05/23/2014 OMEGA SANDOVAL MD Ot 521.00 UNSPEC DENTAL CARIES 05/23/2014 OMEGA SANDOVAL MD Ot 784.92 JAW PAIN 05/23/2014 OMEGA SANDOVAL MD Ot 873.63 TOOTH (BROKEN) (FRACTURED) (DUE TO TRAUM 05/23/2014 OMEGA SANDOVAL MD Ot E000.8 OTHER EXTERNAL CAUSE STATUS 05/23/2014 OMEGA SANDOVAL MD Ot E928.9 ACCIDENT NOS 05/28/2014 TUCKER WARD MD Ot 521.00 UNSPEC DENTAL CARIES 05/28/2014 TUCKER [...] ORI EUGENE DO Ot R10.13 EPIGASTRIC PAIN 07/11/2016 RANDOLPH SMITH DO Ot K21.9 GASTRO-ESOPHAGEAL REFLUX DISEASE WITHOUT 07/11/2016 MARIO SMITH DOTT D Ot R10.12 LEFT UPPER QUADRANT PAIN 07/11/2016 RANDOLPH SMITH DO D Ot Z01.818 ENCOUNTER FOR OTHER PREPROCEDURAL EXAMIN 07/12/2016 RANDOLPH SMITH DO Ot K21.9 GASTRO-ESOPHAGEAL REFLUX DISEASE WITHOUT 07/12/2016 RANDOLPH SMITH DO Ot R10.12 LEFT UPPER QUADRANT PAIN 07/12/2016 RANDOLPH SMITH DO D Ot Z01.818 ENCOUNTER FOR OTHER PREPROCEDURAL EXAMIN 07/16/2016 RANDOLPH SMITH DO D Ot K20.9 ESOPHAGITIS, UNSPECIFIED 07/16/2016 RANDOLPH SMITH DO D Ot K21.9 GASTRO-ESOPHAGEAL REFLUX DISEASE WITHOUT 07/16/2016 RANDOLPH SMITH DO D Ot K25.7 CHRONIC GASTRIC ULCER WITHOUT HEMORRHAGE 07/16/2016 RANDOLPH SMITH DO D Ot K29.70 GASTRITIS, UNSPECIFIED, WITHOUT BLEEDING 07/16/2016 MARIO SMITH DOTT D Ot K29.80 DUODENITIS WITHOUT BLEEDING 07/16/2016 RANDOLPH SMITH DO Ot K44.9 DIAPHRAGMATIC HERNIA WITHOUT OBSTRUCTION 07/22/2016 RANDOLPH SMITH DO D Ot K20.9 ESOPHAGITIS, UNSPECIFIED 07/22/2016 MARIO SMITH DOTT D Ot K21.9 GASTRO-ESOPHAGEAL REFLUX DISEASE WITHOUT 07/22/2016 RANDOLPH SMITH DO D Ot K25.7 CHRONIC GASTRIC ULCER WITHOUT HEMORRHAGE 07/22/2016 SMITH DO, RANDOLPH D Ot K29.70 GASTRITIS, UNSPECIFIED, WITHOUT BLEEDING 07/22/2016 SMITH DO, RANDOLPH D Ot K29.80 DUODENITIS WITHOUT BLEEDING 07/22/2016 SMITH DO, RANDOLPH D Ot K44.9 DIAPHRAGMATIC HERNIA WITHOUT OBSTRUCTION 07/24/2016 SMITH DO, RANDOLPH D Ot K20.9 ESOPHAGITIS, UNSPECIFIED 07/24/2016 SMITH DO, RANDOLPH D Ot K21.9 GASTRO-ESOPHAGEAL REFLUX DISEASE WITHOUT 07/24/2016 SMITH DO, RANDOLPH D Ot K25.7 CHRONIC GASTRIC ULCER WITHOUT HEMORRHAGE 07/24/2016 SMITH DO, RANDOLPH D Ot K29.70 GASTRITIS, UNSPECIFIED, WITHOUT BLEEDING 07/24/2016 SMITH DO, RANDOLPH D Ot K29.80 DUODENITIS WITHOUT BLEEDING 07/24/2016 SMITH DO, RANDOLPH D Ot K44.9 DIAPHRAGMATIC HERNIA WITHOUT OBSTRUCTION 02/15/2017 Ot 784.0 HEADACHE 02/15/2017 TUCKER WARD MD Ot D72.829 ELEVATED WHITE BLOOD CELL COUNT, UNSPECI 02/15/2017 TUCKER WARD MD Ot F17.210 NICOTINE DEPENDENCE, CIGARETTES, UNCOMPL 02/15/2017 TUCKER WARD MD Ot F41.9 ANXIETY DISORDER, UNSPECIFIED 02/15/2017 TUCKER WARD MD T Ot I10 ESSENTIAL (PRIMARY) HYPERTENSION 02/15/2017 TUCKER WARD MD Ot K21.9 GASTRO-ESOPHAGEAL REFLUX DISEASE WITHOUT 02/15/2017 TUCKER WARD MD Ot K29.70 GASTRITIS, UNSPECIFIED, WITHOUT BLEEDING 02/15/2017 TUCKER WARD MD Ot R11.2 NAUSEA WITH VOMITING, UNSPECIFIED 02/15/2017 Ot 784.0 HEADACHE 02/18/2017 TUCKER WARD MD Ot D72.829 ELEVATED WHITE BLOOD CELL COUNT, UNSPECI 02/18/2017 TUCKER WARD MD Ot F17.210 NICOTINE DEPENDENCE, CIGARETTES, UNCOMPL 02/18/2017 TUCKER WARD MD Ot F41.9 ANXIETY DISORDER, UNSPECIFIED 02/18/2017 TUCKER WARD MD T Ot I10 ESSENTIAL (PRIMARY) HYPERTENSION 02/18/2017 TUCKER WARD MD Ot K21.9 GASTRO-ESOPHAGEAL REFLUX DISEASE WITHOUT 02/18/2017 TUCKER WARD MD, Ot K29.70 GASTRITIS, UNSPECIFIED, WITHOUT BLEEDING 02/18/2017 TUCKER WARD MD, Ot R11.2 NAUSEA WITH VOMITING, UNSPECIFIED 04/30/2017 Ot 784.0 HEADACHE Procedures Code Description Performed By Performed On 73.59 MANUAL ASSIST DELIV NEC 11/13/2007 57704 URINE TEST (IN- HOUSE) 04/18/2012 08165 URINE TEST (IN- HOUSE) 04/18/2012 13296 ROUTINE VENIPUNCTURE 04/27/2012 64352 HCG QUANTITATIVE 04/28/2012 73.6 EPISIOTOMY 02/27/2013 Results Test Result Range Complete urinalysis with reflex to culture - 12/25/15 05:22 Urine color determination YELLOW NRG Urine clarity determination SLIGHTLY CLOUDY NRG Urine pH measurement by test strip 5 5-9 Specific gravity of urine by test strip 1.020 1.016- 1.022 Urine protein assay by test strip, semi-quantitative [...] 05:31 Blood leukocytes automated count (number/volume) 8.3 10*3/uL 4.3-11.0 Blood erythrocytes automated count (number/volume) 4.58 10*6/uL 4.35-5.85 Venous blood hemoglobin measurement (mass/volume) 13.9 [...] Automated blood platelet mean volume measurement 10.4 [foz_us] 7.4-10.4 Automated blood neutrophils/100 leukocytes 42 % [...] Serum or plasma sodium measurement (moles/volume) 139 mmol/L 135-145 Serum or plasma potassium measurement (moles/volume) 4.3 mmol/L 3.6-5.0 Serum or plasma chloride measurement (moles/volume) 109 mmol/L 98-107 Carbon dioxide 21 mmol/L 21-32 Serum or plasma anion gap determination (moles/volume) 9 mmol/L 5-14 Serum or plasma urea nitrogen measurement (mass/volume) 14 mg/dL 7-18 Serum or plasma creatinine measurement (mass/volume) 0.71 mg/dL 0.60-1.30 Serum or plasma urea nitrogen/creatinine mass [...] or plasma amylase measurement (enzymatic activity/volume) 55 U /L 25-125 Lipase - 12/25/15 05:31 Lipase 60 U/L 8-78 CBC With Differential/Platelet - 06/12/16 08:45 WBC 7.5 x10E3/uL 3.4-10.8 RBC 4.85 x10E6/uL 3.77-5.28 Hemoglobin 14.7 g/dL 11.1-15.9 Hematocrit 43.2 % 34.0-46.6 MCV 89 fL 79-97 MCH 30.3 pg 26.6-33.0 MCHC 34.0 g/dL 31.5-35.7 RDW 13.0 % 12.3-15.4 Platelets 308 x10E3/uL 150-379 Neutrophils 46 % Lymphs 41 % Monocytes 9 % Eos 4 % Basos 0 % Neutrophils (Absolute) 3.4 x10E3/uL 1.4-7.0 Lymphs (Absolute) 3.0 x10E3/uL 0.7-3.1 Monocytes(Absolute) 0.7 x10E3/uL 0.1-0.9 Eos (Absolute) 0.3 x10E3/uL 0.0-0.4 Baso (Absolute) 0.0 x10E3/uL 0.0-0.2 Immature Granulocytes 0 % Immature Grans (Abs) 0.0 x10E3/uL 0.0-0.1 Comp. Metabolic Panel (14) - 06/12/16 08:45 Glucose, Serum 77 mg/dL 65-99 BUN 13 mg/dL 6-20 Creatinine, Serum 0.75 mg/dL 0.57-1.00 eGFR If NonAfricn Am 108 mL/min/1.73 >59 eGFR If Africn Am 125 mL/min/1.73 >59 BUN/Creatinine Ratio 17 8-20 Sodium, Serum 142 mmol/L 134-144 Potassium, Serum 4.6 mmol/L 3.5-5.2 Chloride, Serum 103 mmol/L 96-106 Carbon Dioxide, Total 23 mmol/L 18-29 Calcium, Serum 9.3 mg/dL 8.7-10.2 Protein, Total, Serum 7.3 g/dL 6.0-8.5 Albumin, Serum 4.0 g/dL 3.5-5.5 Globulin, Total 3.3 g/dL 1.5-4.5 A/G Ratio 1.2 1.1-2.5 Bilirubin, Total <0.2 mg/dL 0.0-1.2 Alkaline Phosphatase, S 83 IU/L 39-117 AST (SGOT) 17 IU/L 0-40 ALT (SGPT) 22 IU/L 0-32 Testosterone, Total, LC/MS - 06/12/16 08:45 Testosterone, Total, LC/MS 35 ng/dL Magnesium, Serum - 06/12/16 08:45 Magnesium, Serum 1.9 mg/dL 1.6-2.3 Urine beta human chorionic gonadotropin (hCG) measurement - 07/16/16 09:15 Urine beta human chorionic gonadotropin (hCG) measurement NEGATIVE NEGATIVE Complete urinalysis with reflex to culture - 02/15/17 04:14 Urine color determination YELLOW NRG Urine clarity determination CLOUDY NRG Urine pH measurement by test strip 5 5-9 Specific gravity of urine by test strip 1.020 1.016- 1.022 Urine protein assay by test strip, semi-quantitative 2+ NEGATIVE Urine glucose detection by automated test strip NEGATIVE NEGATIVE Erythrocytes detection in urine sediment by light microscopy 4+ NEGATIVE Urine ketones detection by automated test strip NEGATIVE NEGATIVE Urine nitrite detection by test strip NEGATIVE NEGATIVE Urine total bilirubin detection by test strip NEGATIVE NEGATIVE Urine urobilinogen measurement by automated test strip (mass/volume) NORMAL NORMAL Urine leukocyte esterase detection by dipstick 3+ NEGATIVE Automated urine sediment erythrocyte count by microscopy (number/high power field) [HPF] NRG Automated urine sediment leukocyte count by microscopy (number/high power field ) [HPF] NRG Bacteria detection in urine sediment by light microscopy LARGE NRG Squamous epithelial cells detection in urine sediment by light microscopy 10-25 NRG Crystals detection in urine sediment by light microscopy NONE NRG Casts detection in urine sediment by light microscopy NONE NRG Mucus detection in urine sediment by light microscopy SMALL NRG Complete urinalysis with reflex to culture YES NRG Bacterial urine culture - 02/15/17 04:14 Bacterial urine culture [id number] NRG COLONY COUNT <10,000 NRG FREE TEXT ENTRY 2 MIXED GRAM POSITIVE RAMESH <10,000/ML NRG Complete blood count (CBC) with automated white blood cell (WBC) differential - 02/15/17 04:28 Blood leukocytes automated count (number/volume) 17.4 10*3/uL 4.3-11.0 Blood erythrocytes automated count (number/volume) 5.22 10*6/uL 4.35-5.85 Venous blood hemoglobin measurement (mass/volume) 16.0 g/dL 11.5-16.0 Blood hematocrit (volume fraction) 47 % 35-52 Automated erythrocyte mean corpuscular volume 91 [foz_us] 80-99 Automated erythrocyte mean corpuscular hemoglobin (mass per erythrocyte) 31 pg 25-34 Automated erythrocyte mean corpuscular hemoglobin concentration measurement ( mass/volume) 34 g/dL 32-36 Automated erythrocyte distribution width ratio 12.9 % 10.0-14.5 Automated blood platelet count (count/volume) 339 10*3/uL 130-400 Automated blood platelet mean volume measurement 10.1 [foz_us] 7.4-10.4 Automated blood neutrophils/100 leukocytes 75 % 42-75 Automated blood lymphocytes/100 leukocytes 15 % 12-44 Blood monocytes/100 leukocytes 8 % 0-12 Automated blood eosinophils/100 leukocytes 2 % 0-10 Automated blood basophils/100 leukocytes 0 % 0-10 Blood neutrophils automated count (number/volume) 13.0 10*3 1.8-7.8 Blood lymphocytes automated count (number/volume) 2.6 10*3 1.0-4.0 Blood monocytes automated count (number/volume) 1.5 10*3 0.0-1.0 Automated eosinophil count 0.3 10*3/uL 0.0-0.3 Automated blood basophil count (count/volume) 0.0 10*3/uL 0.0-0.1 Comprehensive metabolic panel - 02/15/17 04:28 Serum or plasma sodium measurement (moles/volume) 140 mmol/L 135-145 Serum or plasma potassium measurement (moles/volume) 3.9 mmol/L 3.6-5.0 Serum or plasma chloride measurement (moles/volume) 106 mmol/L 98-107 Carbon dioxide 19 mmol/L 21-32 Serum or plasma anion gap determination (moles/volume) 15 mmol/L 5-14 Serum or plasma urea nitrogen measurement (mass/volume) 12 mg/dL 7-18 Serum or plasma creatinine measurement (mass/volume) 0.85 mg/dL 0.60-1.30 Serum or plasma urea nitrogen/creatinine mass ratio 14 NRG Serum or plasma creatinine measurement with calculation of estimated glomerular filtration rate > NRG Serum or plasma glucose measurement (mass/volume) 118 mg/dL 70-105 Serum or plasma calcium measurement (mass/volume) 9.9 mg/dL 8.5-10.1 Serum or plasma total bilirubin measurement (mass/volume) 0.6 mg/dL 0.1-1.0 Serum or plasma alkaline phosphatase measurement (enzymatic activity/volume) 80 U/L 40-136 Serum or plasma aspartate aminotransferase measurement (enzymatic activity/ volume) 22 U/L 5-34 Serum or plasma alanine aminotransferase measurement (enzymatic activity/volume ) 31 U/L 0-55 Serum or plasma protein measurement (mass/volume) 8.9 g/dL 6.4-8.2 Serum or plasma albumin measurement (mass/volume) 4.4 g/dL 3.2-4.5 Lipase - 02/15/17 04:28 Lipase 31 U/L 8-78 Blood manual differential performed detection - 02/15/17 04:28 Blood monocytes/100 leukocytes 6 % NRG Manual blood segmented neutrophils/100 leukocytes 69 % NRG Blood band neutrophils/100 leukocytes 3 % NRG Manual blood lymphocytes/100 leukocytes 12 % NRG Manual eosinophils/100 leukocytes in nose 2 % NRG Manual blood basophils/100 leukocytes 0 % NRG Blood lymphocytes variant/100 leukocytes 8 % NRG Blood erythrocyte morphology finding identification NORMAL NRG TSH - 05/28/17 10:19 TSH 1.67 mIU/L NRG Encounters ACCT No. Visit Date/Time Discharge Status Pt. Type Provider Facility Loc./Unit Complaint [id number] 03/11/2014 11:34:00 03/11/2014 23:59:59 CLS Outpatient GUDELIA COLES MD [id number] 10/12/2013 14:34:00 10/12/2013 23:59:59 CLS Outpatient MONTSERRAT PICKETTNSHARITAYOUSUF Garzon [id number] 07/13/2013 16:02:00 07/13/2013 23:59:59 CLS Outpatient YUMI AFTER SCHOOL TEACHERGARETTLOU R [id number] 06/09/2013 09:53:00 06/09/2013 23:59:59 CLS Outpatient ELISSA NEWMAN KARI Rawls [id number] 10/23/2012 11:38:00 10/23/2012 23:59:59 CLS Outpatient KASSY MCCLURE MD, PAUL Ch [id number] 04/27/2012 14:48:00 04/27/2012 23:59:59 [place] [id number] 04/18/2012 09:13:00 04/18/2012 23:59:59 CLS Outpatient [id number] 05/28/2017 09:00:00 05/28/2017 23:59:59 CLS Outpatient ZAHEER NEWMANZACKARYCHRIS L [facility] [id number] 05/28/2017 09:00:00 Document Registration [id number] 06/16/2016 19:05:00 Document Registration [id number] 02/15/2017 04:00:00 02/15/2017 05:49:00 DIS Emergency ED EDMONDSON, TUCKER [place] [facility] ER VOMITING,NAUSEA, DIARRHEA [id number] 07/16/2016 07:58:00 07/16/2016 11:05:00 DIS Outpatient RANDOLPH SMITH DO [facility] ENDO GERD/LUQ ABD PAIN [id number] 07/11/2016 06:20:00 07/11/2016 15:25:00 DIS Outpatient RANDOLPH SMITH DO [facility] PREOP GERD/LUQ ABD PAIN [id number] 12/25/2015 05:20:00 12/25/2015 07:33:00 DIS Emergency ORI EUGENE DO [facility] ER ABD PAIN [id number] 06/11/2015 11:30:00 06/11/2015 23:59:59 CLS Emergency ODGERS MD, WEN Trammell [facility] ER DENTAL PAIN/ISSUES [id number] 05/27/2014 23:54:00 05/28/2014 01:13:00 DIS Emergency ED EDMONDSON, TUCKER [place] [facility] ER LEFT DENTAL PAIN, PER PT NO ACCIDENT [id number] 05/23/2014 19:59:00 05/23/2014 20:43:00 DIS Emergency LORI EDMONDSON, OMEGA Miller [facility] ER JAW PAIN [id number] 05/22/2014 22:38:00 05/22/2014 23:18:00 DIS Emergency JUSTIN MCLAIN [employer] [facility] ER TOOTH PAIN [id number] 05/06/2014 22:03:00 05/06/2014 23:15:00 DIS Emergency JUSTIN MCLAIN [employer] [facility] ER 7 WKS;BLEEDING [id number] 04/04/2014 00:33:00 04/04/2014 01:17:00 DIS Emergency ED EDMONDSON, TUCKER [place] [facility] ER DENTAL [id number] 02/27/2013 03:47:00 02/28/2013 15:40:00 DIS Inpatient JIGAR RAE DO [facility] WS LEAKING FLUID [id number] 02/25/2013 09:22:00 02/25/2013 11:13:00 DIS Outpatient KIMBERLEE CASTILLO DO [facility] WSo C/O SPOTTING [id number] 02/16/2013 10:00:00 02/16/2013 12:15:00 DIS Outpatient JIGAR RAE DO [facility] WSo ABD PAIN [id number] 11/27/2012 17:40:00 11/27/2012 18:50:00 DIS Outpatient JIGAR RAE DO [facility] WSo LOWER BACK/PELVIC PAIN [id number] 09/22/2012 11:44:00 09/22/2012 23:59:59 CLS Outpatient COLTHARP MICHAEL MENDOZA [facility] QUICK RASH [id number] 04/30/2017 09:06:00 Document Registration [id number] 04/30/2017 09:06:00 Document Registration [id number] 04/30/2017 09:06:00 Document Registration [id number] 04/30/2017 09:06:00 Document Registration [id number] 04/30/2017 09:06:00 Document Registration [id number] 04/30/2017 08:42:00 Document Registration [id number] 04/30/2017 08:42:00 Document Registration [id number] 04/30/2017 08:42:00 Document Registration [id number] 04/30/2017 08:42:00 Document Registration [id number] 04/30/2017 08:42:00 Document Registration [id number] 04/30/2017 08:42:00 Document Registration [id number] 04/30/2017 08:42:00 Document Registration [id number] 04/30/2017 08:42:00 Document Registration [id number] 04/30/2017 08:42:00 Document Registration [id number] 04/30/2017 08:42:00 Document Registration [id number] 04/30/2017 08:42:00 Document Registration [id number] 04/30/2017 08:42:00 Document Registration [id number] 04/30/2017 08:42:00 Document Registration [id number] 04/30/2017 08:42:00 Document Registration [id number] 04/30/2017 08:42:00 Document Registration [id number] 04/30/2017 08:42:00 Document Registration [id number] 04/30/2017 08:42:00 Document Registration [id number] 04/30/2017 08:42:00 Document Registration [id number] 04/30/2017 08:42:00 Document Registration [id number] 04/30/2017 08:42:00 Document Registration [id number] 04/30/2017 08:42:00 Document Registration [id number] 07/11/2016 15:20:00 Document Registration [id number] 07/29/2012 20:02:00 Document Registration [id number] 05/03/2012 19:35:00 Document Registration [id number] 04/25/2012 10:47:00 Document Registration [id number] 11/04/2011 08:20:00 Document Registration [id number] 09/05/2011 16:34:00 Document Registration [id number] 11/13/2007 04:38:00 Document Registration [id number] 11/09/2007 07:43:00 Document Registration [id number] 11/08/2007 13:05:00 Document Registration
[2017-09-16] MEDS ORDERED: raNItidine 50 MG/2 ML INJ (ZANTAC) IV SCH (04:00)
[2017-09-16] MEDS ORDERED: ANTACID SUSP 30 ML UDC (MYLANTA) PO ONE (04:00)
[2017-09-16] MEDS ORDERED: LIDOCAINE 2% VISCOUS 15 ML UDC PO ONE (04:00)
[2017-09-16] MEDS ORDERED: HYOSCYAMINE 0.125 MG (LEVSIN) TAB SL ONE (04:00)
--- NOTE | 2017-09-16 04:06 | ED GI ---
General Chief Complaint: Abdominal/GI Problems Stated Complaint: ABD PAIN, POSS ACID REFLUX Nursing Triage Note: PT TO ED 6 W/ C/O "STOMACH FITS". PT REPORTS HAS CHRONIC PAIN R/T STOMACH ULCERS BUT TONIGHT PAIN IS WORSE. C/O N/V W/ SYMPTOMS. NO OTHER C/O VOICED Sepsis Screen: No Definite Risk Source of Information: Patient Exam Limitations: No Limitations History of Present Illness Date Seen by Provider: September 16, 2017 Time Seen by Provider: 03:42 Initial Comments Here with report of upper abdominal pain in the epigastric region in which she is calling abdominal fits. States that she has these occasionally where the stomach acid will head and nothing seems to work to make it better. She did take her typical stomach medicines and they are not working. She did drive here tonight. Denies denies diarrhea. Vomiting but does have significant nausea. Timing/Duration: 1-3 Hours Severity/Quality: Moderate, Severe Location: Epigastric Radiation: No Radiation Modifying Factors: Worsens With Eating Associated Symptoms: No Back Pain, No Chest Pain, No Diaphoresis, No Fever/ Chills; Nausea/Vomiting; No Shortness of Air, No Weakness Allergies and Home Medications Allergies Coded Allergies: NKANo Known Allergies (Verified Allergy, Unknown, 07/18/05) Home Medications Dicyclomine HCl 10 Mg Capsule, 10 MG PO TID, (Reported) Lovastatin 10 Mg Tablet, 10 MG PO DAILY, (Reported) Omeprazole Magnesium 20 Mg Tablet.dr, 20 MG PO BID Prescribed by: FLY JACOBSON on 07/16/16 0947 Ondansetron 4 Mg Tab.rapdis, 4 MG SL Q4H PRN for NAUSEA/VOMITING-1ST LINE Prescribed by: TUCKER CLINE on 02/15/17 0534 Spironolactone 100 Mg Tablet, 100 MG PO BID, (Reported) Sucralfate 1 Gm Tablet, 1 GM PO QID Prescribed by: FLY JACOBSON on 07/16/16 0947 Patient Home Medication List Home Medication List Reviewed: Yes Review of Systems Constitutional: see HPI; No chills, No fever Respiratory: No Symptoms Reported Cardiovascular: No Symptoms Reported Gastrointestinal: See HPI, Abdominal Pain, Nausea; Denies Vomiting Genitourinary: No Symptoms Reported Musculoskeletal: no symptoms reported All Other Systems Reviewed Negative Unless Noted: Yes Past Olrtodd-Xfbatx-Yxchcu Hx Past Med/Social Hx: Reviewed Nursing Past Med/Soc Hx Patient Social History Alcohol Use: Denies Use Recreational Drug Use: No Smoking Status: Current Everyday Smoker Type Used: Cigarettes Recent Foreign Travel: No Contact w/Someone Who Travel: No Recent Infectious Disease Expo: No Recent Hopitalizations: No Physical Abuse: No Sexual Abuse: No Mistreated: No Fear: No Immunizations Up To Date Tetanus Booster (TDap): Unknown Date of Influenza Vaccine: Feb 17, 2012 Seasonal Allergies Seasonal Allergies: No Past Medical History Surgeries: Yes (DENTAL, EGD) Abdominal Respiratory: No Cardiac: Yes Hypertension Neurological: No Reproductive Disorders: Yes ("LOW TESTOSTERONE" ) Female Reproductive Disorders: Denies Sexually Transmitted Disease: No HIV/AIDS: No Genitourinary: No Gastrointestinal: Yes (chronic gastritis) Gastroesophageal Reflux Musculoskeletal: Yes Chronic Back Pain Endocrine: No HEENT: No Cancer: No Psychosocial: Yes Anxiety Nursing Suicide Risk Score: 0 Integumentary: No Blood Disorders: No Adverse Reaction/Blood Tranf: No Family Medical History Reviewed Nursing Family Hx No Pertinent Family Hx Physical Exam Vital Signs Vital Signs - First Documented 09/16/17 03:32 Temp 97.7 Pulse 78 Resp 20 B/P (MAP) 113/95 (101) Pulse Ox 97 O2 Delivery Room Air Capillary Refill : Less Than 3 Seconds General Appearance: WD/WN, mild distress HEENT: PERRL/EOMI, pharynx normal Neck: full range of motion, supple Respiratory: lungs clear, normal breath sounds Cardiovascular: regular rate, rhythm, no murmur Gastrointestinal: soft, tenderness (epigastric) Extremities: non-tender, normal inspection Back: normal inspection, no CVA tenderness, no vertebral tenderness Neurologic/Psychiatric: alert, oriented x 3 Skin: normal color, warm/dry Progress/Results/Core Measures My Orders Orders - OMEGA SANDOVAL MD Amylase (09/16/17 03:41) Cbc With Automated Diff (09/16/17 03:41) Comprehensive Metabolic Panel (09/16/17 03:41) Lipase (09/16/17 03:41) Magnesium (09/16/17 03:41) Hcg,Qualitative Serum (09/16/17 03:41) Saline Lock/Iv-Start (09/16/17 03:41) Lidocaine 2% Viscous 15 Ml (Xylocaine Vi (09/16/17 04:00) Antacid Suspension (Mylanta Suspension (09/16/17 04:00) Hyoscyamine Sl Tablet (Levsin Sl Tablet) (09/16/17 04:00) Ranitidine Injection (Zantac Injection) (09/16/17 04:00) Medications Given in ED Current Medications Medications Dose Ordered Sig/Moises Route Start Time Stop Time Status Last Admin Dose Admin Al Hydrox/Mg Hydrox/Simethicone 30 ml ONCE ONCE PO 09/16/17 04:00 09/16/17 04:01 DC 09/16/17 03:58 30 ML Hyoscyamine Sulfate 0.125 mg ONCE ONCE SL 09/16/17 04:00 09/16/17 04:01 DC 09/16/17 03:58 0.125 MG Lidocaine HCl 15 ml ONCE ONCE PO 09/16/17 04:00 09/16/17 04:01 DC 09/16/17 03:58 15 ML Vital Signs/I&O 09/16/17 03:32 Temp 97.7 Pulse 78 Resp 20 B/P (MAP) 113/95 (101) Pulse Ox 97 O2 Delivery Room Air Blood Pressure Mean: 101 Progress Note : Progress Note Seen and evaluated. IV, labs, Zantac 50 mg IV, GI cocktail and Levsin ordered. 0415: Unable to obtain IV but the Levsin and check excessive seems to have completely resolve the patient's symptoms. She would like to go home and follow -up with her doctor in the morning for recheck and further evaluation. This seems reasonable since her symptoms are resolved. Discharged home with return precautions. Patient verbalize understanding instructions and agreement with plan. Departure Impression Primary Impression: Epigastric abdominal pain Additional Impression: Reflux gastritis Disposition: 01 HOME, SELF-CARE Condition: Improved Departure-Patient Inst. Decision time for Depature: 04:17 Referrals: [facility] (PCP/Family) Primary Care Physician RANDOLPH SMITH DO Patient Instructions: Acute Abdomen (Belly Pain), Adult (DC), Peptic Ulcers (DC ) Add. Discharge Instructions: All discharge instructions reviewed with patient and/or family. Voiced understanding. Continue home medications as previously prescribed. Follow-up with your Dr. in the morning for recheck and further evaluation including referral to a surgeon for possible upper endoscopy (scope). Clear liquid diet for the first 24 hours and then advance as tolerated to a light diet. Return for worse pain, fever, vomiting, weakness, breathing problems or other concerns as needed. OMEGA SANDOVAL MD September 16, 2017 04:05
[2017-09-16 04:20] VITALS: BP 0/0
== END 2017-09-16 04:20 | disposition home or self-care (01) ==
LOC: EDUNIT# 03:16 → ER 03:19
DX: K29.60 Other gastritis without bleeding (principal); I10 Essential (primary) hypertension; K21.9 Gastro-esophageal reflux disease without esophagitis; F41.9 Anxiety disorder, unspecified; F17.210 Nicotine dependence, cigarettes, uncomplicated; Z87.19 Personal history of other diseases of the digestive system
CPT/HCPCS: 99283

== ENCOUNTER 2017-09-29 00:29 | Day surgery (SDC) | payer SELFPAY ==
[~2017-09-29] VITALS: Ht 170.2 cm; Wt 149.7 kg
--- OUTSIDE RECORDS SUMMARY | 2017-09-29 00:35 | XMS REPORT | Continuity of Care Document ---
Author Author Formerly [facility] Address Unknown Phone Unavailable Allergies Active Description Code Type Severity Reaction Onset Reported/Identified Relationship to Patient Clinical Status Yes NKANo Known Allergies NKA Miscellaneous Allergy Unknown N/A 07/18/2005 Yes ACETAMINOPHEN ACETAMINOPHEN Mild CORICIDIN CAUSE 09/02/2005 Yes CHLORPHENAMINE CHLORPHENAMINE Mild CORICIDIN CAUSE 09/02/2005 Yes No Known Drug Allergies [id number] Drug Allergy Unknown N/A 11/13/2007 Medications There [...] 525.9 DENTAL DISORDER NOS 05/06/2014 JUSTIN MCLAIN ENTERTAINMENT MUSICIAN Ot 634.90 SPON ABORT UNCOMPL-UNSP 05/06/2014 JUSTIN MCLAIN ENTERTAINMENT MUSICIAN Ot 649.53 SPOTTING COMP , ANTEPARTUM COND 05/22/2014 Ot 784.0 05/22/2014 JUSTIN MCLAIN ENTERTAINMENT MUSICIAN Ot 521.00 UNSPEC DENTAL CARIES 05/22/2014 JUSTIN MCLAIN ENTERTAINMENT MUSICIAN Ot 525.9 DENTAL DISORDER NOS 05/23/2014 OMEGA [...] GASTRO-ESOPHAGEAL REFLUX DISEASE WITHOUT 02/18/2017 TUCKER WARD MD Ot K29.70 GASTRITIS, UNSPECIFIED, WITHOUT BLEEDING 02/18/2017 TUCKER WARD MD Ot R11.2 NAUSEA WITH VOMITING, UNSPECIFIED 04/30/2017 Ot 784.0 HEADACHE 09/16/2017 OMEGA SANDOVAL MD Ot F17.210 NICOTINE DEPENDENCE, CIGARETTES, UNCOMPL 09/16/2017 OMEGA SANDOVAL MD Ot F41.9 ANXIETY DISORDER, UNSPECIFIED 09/16/2017 OMEGA SANDOVAL MD Ot I10 ESSENTIAL (PRIMARY) HYPERTENSION 09/16/2017 OMEGA SANDOVAL MD Ot K21.9 GASTRO-ESOPHAGEAL REFLUX DISEASE WITHOUT 09/16/2017 OMEGA SANDOVAL MD Ot K29.60 OTHER GASTRITIS WITHOUT BLEEDING 09/16/2017 OMEGA SANDOVAL MD Ot R10.13 EPIGASTRIC PAIN 09/16/2017 OMEGA SANDOVAL MD Ot Z87.19 PERSONAL HISTORY OF OTHER DISEASES OF 09/18/2017 OMEGA SANDOVAL MD Ot F17.210 NICOTINE DEPENDENCE, CIGARETTES, UNCOMPL 09/18/2017 OMEGA SANDOVAL MD Ot F41.9 ANXIETY DISORDER, UNSPECIFIED 09/18/2017 OMEGA SANDOVAL MD Ot I10 ESSENTIAL (PRIMARY) HYPERTENSION 09/18/2017 OMEGA SANDOVAL MD Ot K21.9 GASTRO-ESOPHAGEAL REFLUX DISEASE WITHOUT 09/18/2017 OMEGA SANDOVAL MD Ot K29.60 OTHER GASTRITIS WITHOUT BLEEDING 09/18/2017 OMEGA SANDOVAL MD Ot R10.13 EPIGASTRIC PAIN 09/18/2017 OMEGA SANDOVAL MD Ot Z87.19 PERSONAL HISTORY OF OTHER DISEASES OF 09/22/2017 OMEGA SANDOVAL MD Ot F17.210 NICOTINE DEPENDENCE, CIGARETTES, UNCOMPL 09/22/2017 OMEGA SANDOVAL MD Ot F41.9 ANXIETY DISORDER, UNSPECIFIED 09/22/2017 OMEGA SANDOVAL MD Ot I10 ESSENTIAL (PRIMARY) HYPERTENSION 09/22/2017 OMEGA SANDOVAL MD Ot K21.9 GASTRO-ESOPHAGEAL REFLUX DISEASE WITHOUT 09/22/2017 OMEGA SANDOVAL MD Ot K29.60 OTHER GASTRITIS WITHOUT BLEEDING 09/22/2017 OMEGA SANDOVAL MD Ot R10.13 EPIGASTRIC PAIN 09/22/2017 OMEGA SANDOVAL MD Ot Z87.19 PERSONAL HISTORY OF OTHER DISEASES OF Procedures Code Description Performed By Performed On 73.59 MANUAL ASSIST DELIV NEC 11/13/2007 28219 URINE TEST (IN- HOUSE) 04/18/2012 89896 URINE TEST (IN- HOUSE) 04/18/2012 22948 ROUTINE VENIPUNCTURE 04/27/2012 12673 HCG QUANTITATIVE 04/28/2012 73.6 EPISIOTOMY 02/27/2013 Results [...] culture - 02/15/17 04:14 Bacterial urine culture [id number] NRG COLONY COUNT <10,000 NRG FREE TEXT [...] Status Pt. Type Provider Facility Loc./Unit Complaint [id number] 03/11/2014 11:34:00 03/11/2014 23:59:59 CLS Outpatient GUDELIA COLES MD [id number] 10/12/2013 14:34:00 10/12/2013 23:59:59 CLS Outpatient MONTSERRAT PICKETTNFELIZ Duran [id number] 07/13/2013 16:02:00 07/13/2013 23:59:59 CLS Outpatient YUMI ENTERTAINMENT MUSICIANLOU Duran [id number] 06/09/2013 09:53:00 06/09/2013 23:59:59 CLS Outpatient ELISSA NEWMAN KARI Rawls [id number] 10/23/2012 11:38:00 10/23/2012 23:59:59 CLS Outpatient KASSY MCCLURE MD, PAUL Ch [id number] 04/27/2012 14:48:00 04/27/2012 23:59:59 [place] [id number] 04/18/2012 09:13:00 04/18/2012 23:59:59 CLS Outpatient [id number] 05/28/2017 09:00:00 05/28/2017 23:59:59 CLS Outpatient CHRIS SCHWAB APRN [facility] [id number] 05/28/2017 09:00:00 Document Registration [id number] 06/16/2016 19:05:00 Document Registration [id number] 09/16/2017 03:19:00 09/16/2017 04:20:00 DIS Outpatient OMEGA SANDOVAL MD [facility] ER ABD PAIN, POSS ACID REFLUX [id number] 02/15/2017 04:00:00 02/15/2017 05:49:00 DIS Emergency TUCKER WARD MD [facility] ER VOMITING,NAUSEA, DIARRHEA [id number] 07/16/2016 07:58:00 07/16/2016 11:05:00 DIS Outpatient RANDOLPH SMITH DO [facility] ENDO GERD/LUQ ABD PAIN [id number] 07/11/2016 06:20:00 07/11/2016 15:25:00 DIS Outpatient RANDOLPH SMITH DO [facility] PREOP GERD/LUQ ABD PAIN [id number] 12/25/2015 05:20:00 12/25/2015 07:33:00 DIS Emergency ORI EUGENE DO [facility] ER ABD PAIN [id number] 06/11/2015 11:30:00 06/11/2015 23:59:59 CLS Emergency KARISHMA EDMONDSON, WEN Trammell [facility] ER DENTAL PAIN/ISSUES [id number] 05/27/2014 23:54:00 05/28/2014 01:13:00 DIS Emergency ED EDMONDSON, TUCKER Davenport [facility] ER LEFT DENTAL PAIN, PER PT NO ACCIDENT [id number] 05/23/2014 19:59:00 05/23/2014 20:43:00 DIS Emergency LORI EDMONDSON, OMEGA Miller [facility] ER JAW PAIN [id number] 05/22/2014 22:38:00 05/22/2014 23:18:00 DIS Emergency JUSTIN MCLAIN APRN [facility] ER TOOTH PAIN [id number] 05/06/2014 22:03:00 05/06/2014 23:15:00 DIS Emergency JUSTIN MCLAIN APRN [facility] ER 7 WKS;BLEEDING [id number] 04/04/2014 00:33:00 04/04/2014 01:17:00 DIS Emergency ED EDMONDSON, TUCKER Davenport [facility] ER DENTAL [id number] 02/27/2013 03:47:00 02/28/2013 15:40:00 DIS Inpatient JIGAR RAE DO [facility] WS LEAKING FLUID [id number] 02/25/2013 09:22:00 02/25/2013 11:13:00 DIS Outpatient KIMBERLEE CASTILLO DO [facility] WSo C/O SPOTTING [id number] 02/16/2013 10:00:00 02/16/2013 12:15:00 DIS Outpatient JIGAR RAE DO [facility] WSo ABD PAIN [id number] 11/27/2012 17:40:00 11/27/2012 18:50:00 DIS Outpatient JIGAR RAE DO [facility] WSo LOWER BACK/PELVIC PAIN [id number] 09/22/2012 11:44:00 09/22/2012 23:59:59 CLS Outpatient COLTHARP DO, MICHAEL A [facility] QUICK RASH [id number] 04/30/2017 09:06:00 Document Registration [id number] 04/30/2017 09:06:00 Document Registration [id number] 04/30/2017 09:06:00 Document Registration [id number] 04/30/2017 09:06:00 Document Registration [id number] 04/30/2017 09:06:00 Document Registration [id number] 04/30/2017 08:42:00 Document Registration [id number] 04/30/2017 08:42:00 Document Registration [id number] 04/30/2017 08:42:00 Document Registration [id number] 04/30/2017 08:42:00 Document Registration [id number] 04/30/2017 08:42:00 Document Registration [id number] 04/30/2017 08:42:00 Document Registration [id number] 04/30/2017 08:42:00 Document Registration [id number] 04/30/2017 08:42:00 Document Registration [id number] 04/30/2017 08:42:00 Document Registration [id number] 04/30/2017 08:42:00 Document Registration [id number] 04/30/2017 08:42:00 Document Registration [id number] 04/30/2017 08:42:00 Document Registration [id number] 04/30/2017 08:42:00 Document Registration [id number] 04/30/2017 08:42:00 Document Registration [id number] 04/30/2017 08:42:00 Document Registration [id number] 04/30/2017 08:42:00 Document Registration [id number] 04/30/2017 08:42:00 Document Registration [id number] 04/30/2017 08:42:00 Document Registration [id number] 04/30/2017 08:42:00 Document Registration [id number] 04/30/2017 08:42:00 Document Registration [id number] 04/30/2017 08:42:00 Document Registration [id number] 07/11/2016 15:20:00 Document Registration [id number] 07/29/2012 20:02:00 Document Registration [id number] 05/03/2012 19:35:00 Document Registration [id number] 04/25/2012 10:47:00 Document Registration [id number] 11/04/2011 08:20:00 Document Registration [id number] 09/05/2011 16:34:00 Document Registration [id number] 11/13/2007 04:38:00 Document Registration [id number] 11/09/2007 07:43:00 Document Registration [id number] 11/08/2007 13:05:00 Document Registration
[2017-09-29] MEDS ORDERED: FAMOTIDINE 20 MG (PEPCID) TABLET PO STA (00:37)
--- NOTE | 2017-09-29 00:43 | ED Abdominal Pain ---
General Stated Complaint: ABD PAIN Source of Information: Patient Exam Limitations: No Limitations History of Present Illness Date Seen by Provider: September 29, 2017 Time Seen by Provider: 00:32 Initial Comments Here with report of epigastric abdominal pain that is burning and not better with her typical medicines. She does have history of reflux disease and has been evaluated for this previously. We saw her about 2 weeks ago for the same. GI cocktail work at that time. She is working on getting follow-up with the surgeon and will follow-up with her doctor this week. Did vomit a little bit tonight. No report of blood. Timing/Duration: 4-6 Hours Severity/Quality: Moderate, Burning Location: Epigastric Radiation: No Radiation Activities at Onset: None Modifying Factors: Worsens With Eating Associated Symptoms: No Back Pain, No Chest Pain, No Fever/Chills; Heartburn, Nausea/Vomiting; No Shortness of Air, No Weakness Allergies and Home Medications Allergies Coded Allergies: NKANo Known Allergies (Verified Allergy, Unknown, 07/18/05) Home Medications Dicyclomine HCl 10 Mg Capsule, 10 MG PO TID, (Reported) Lovastatin 10 Mg Tablet, 10 MG PO DAILY, (Reported) Omeprazole Magnesium 20 Mg Tablet.dr, 20 MG PO BID Prescribed by: FLY JACOBSON on 07/16/16 0947 Ondansetron 4 Mg Tab.rapdis, 4 MG SL Q4H PRN for NAUSEA/VOMITING-1ST LINE Prescribed by: TUCKER CLINE on 02/15/17 0534 Spironolactone 100 Mg Tablet, 100 MG PO BID, (Reported) Sucralfate 1 Gm Tablet, 1 GM PO QID Prescribed by: FLY JACOBSON on 07/16/16 0947 Patient Home Medication List Home Medication List Reviewed: Yes Review of Systems Constitutional: see HPI; No chills, No fever Respiratory: No Symptoms Reported Cardiovascular: No Symptoms Reported Gastrointestinal: See HPI, Abdominal Pain, Nausea, Vomiting Musculoskeletal: no symptoms reported Psychiatric/Neurological: No Symptoms Reported Past Onyxwig-Seuddl-Sekkiy Hx Past Med/Social Hx: Reviewed Nursing Past Med/Soc Hx Patient Social History Alcohol Use: Denies Use Recreational Drug Use: No Smoking Status: Current Someday Smoker Type Used: Cigarettes Recent Foreign Travel: No Contact w/Someone Who Travel: No Recent Hopitalizations: No Immunizations Up To Date Tetanus Booster (TDap): Unknown Date of Influenza Vaccine: Feb 17, 2012 Seasonal Allergies Seasonal Allergies: No Past Medical History Surgeries: Yes (DENTAL, EGD) Abdominal Respiratory: No Cardiac: Yes Hypertension Neurological: No Reproductive Disorders: Yes ("LOW TESTOSTERONE" ) Female Reproductive Disorders: Denies Sexually Transmitted Disease: No HIV/AIDS: No Genitourinary: No Gastrointestinal: Yes (chronic gastritis) Gastroesophageal Reflux Musculoskeletal: Yes Chronic Back Pain Endocrine: No HEENT: No Cancer: No Psychosocial: Yes Anxiety Integumentary: No Blood Disorders: No Adverse Reaction/Blood Tranf: No Family Medical History Reviewed Nursing Family Hx No Pertinent Family Hx Physical Exam Vital Signs Vital Signs - First Documented 09/29/17 00:33 Temp 98.0 Pulse 78 Resp 20 B/P (MAP) 142/104 (117) Pulse Ox 97 O2 Delivery Room Air Capillary Refill : General Appearance: WD/WN, no apparent distress HEENT: PERRL/EOMI, pharynx normal Neck: full range of motion, supple Respiratory: lungs clear, normal breath sounds Cardiovascular: regular rate, rhythm, no murmur Gastrointestinal: non tender, soft Neurologic/Psychiatric: alert, oriented x 3 Progress/Results/Core Measures Results/Orders Lab Results Laboratory Tests Test 09/29/17 01:37 Range/Units White Blood Count 12.5 H 4.3-11.0 10^3/uL Red Blood Count 4.62 4.35-5.85 10^6/uL Hemoglobin 14.2 11.5-16.0 G/DL Hematocrit 42 35-52 % Mean Corpuscular Volume 91 80-99 FL Mean Corpuscular Hemoglobin 31 25-34 PG Mean Corpuscular Hemoglobin Concent 34 32-36 G/DL Red Cell Distribution Width 13.1 10.0-14.5 % Platelet Count 285 130-400 10^3/uL Mean Platelet Volume 10.3 7.4-10.4 FL Neutrophils (%) (Auto) 39 L 42-75 % Lymphocytes (%) (Auto) 47 H 12-44 % Monocytes (%) (Auto) 9 0-12 % Eosinophils (%) (Auto) 5 0-10 % Basophils (%) (Auto) 0 0-10 % Neutrophils # (Auto) 4.9 1.8-7.8 X 10^3 Lymphocytes # (Auto) 5.9 H 1.0-4.0 X 10^3 Monocytes # (Auto) 1.1 H 0.0-1.0 X 10^3 Eosinophils # (Auto) 0.6 H 0.0-0.3 10^3/uL Basophils # (Auto) 0.0 0.0-0.1 10^3/uL Sodium Level 141 135-145 MMOL/L Potassium Level 4.0 3.6-5.0 MMOL/L Chloride Level 107 98-107 MMOL/L Carbon Dioxide Level 24 21-32 MMOL/L Anion Gap 10 5-14 MMOL/L Blood Urea Nitrogen 17 7-18 MG/DL Creatinine 0.81 0.60-1.30 MG/DL Estimat Glomerular Filtration Rate > 60 BUN/Creatinine Ratio 21 Glucose Level 94 70-105 MG/DL Calcium Level 9.0 8.5-10.1 MG/DL Magnesium Level 2.2 1.8-2.4 MG/DL Total Bilirubin 0.2 0.1-1.0 MG/DL Aspartate Amino Transf (AST/SGOT) 18 5-34 U/L Alanine Aminotransferase (ALT/SGPT) 27 0-55 U/L Alkaline Phosphatase 69 40-136 U/L Total Protein 7.5 6.4-8.2 GM/DL Albumin 4.0 3.2-4.5 GM/DL Amylase Level 53 25-125 U/L Lipase 67 8-78 U/L My Orders Orders - OMEGA SANDOVAL MD Lidocaine 2% Viscous 15 Ml (Xylocaine Vi (09/29/17 00:45) Famotidine Tablet (Pepcid Tablet) (09/29/17 00:37) Antacid Suspension (Mylanta Suspension (09/29/17 00:45) Morphine Injection (Morphine Injection (09/29/17 01:09) Amylase (09/29/17 01:36) Cbc With Automated Diff (09/29/17:36) Comprehensive Metabolic Panel (09/29/17 01:36) Lipase (09/29/17 01:36) Magnesium (09/29/17 01:36) Saline Lock/Iv-Start (09/29/17 01:36) Ns Iv 1000 Ml (Sodium Chloride 0.9%) (09/29/17 01:36) Fentanyl Injection (Sublimaze Injection (09/29/17 01:36) Ondansetron Injection (Zofran Injectio (09/29/17 01:45) Pantoprazole Injection (Protonix Injecti (09/29/17 01:45) Medications Given in ED Current Medications Medications Dose Ordered Sig/Moises Route Start Time Stop Time Status Last Admin Dose Admin Al Hydrox/Mg Hydrox/Simethicone 30 ml ONCE ONCE PO 09/29/17 00:45 09/29/17 00:46 DC 09/29/17 00:42 30 ML Lidocaine HCl 15 ml ONCE ONCE PO 09/29/17 00:45 09/29/17 00:46 DC 09/29/17 00:42 15 ML Ondansetron HCl 4 mg ONCE ONCE IVP 09/29/17 01:45 09/29/17 01:46 DC 09/29/17 01:50 4 MG Pantoprazole 40 mg ONCE ONCE IV 09/29/17 01:45 09/29/17 01:46 DC 09/29/17 01:50 40 MG Sodium Chloride 1,000 ml @ 0 mls/hr Q0M ONCE IV 09/29/17 01:36 09/29/17 01:38 DC 09/29/17 01:50 1,000 MLS/HR Vital Signs/I&O 09/29/17 00:33 Temp 98.0 Pulse 78 Resp 20 B/P (MAP) 142/104 (117) Pulse Ox 97 O2 Delivery Room Air Progress Progress Note : Progress Note Seen and evaluated. GI cocktail and Pepcid by mouth ordered. This worked on the last visit on 09/16/17. I did discuss with her the importance of follow-up with the surgeon for upper endoscopy. She stated that she would. She does have a doctor's appointment scheduled for this morning. 0105: Pain not better. Morphine 10 mg IM. Monitor patient. 0135: Patient not better and has vomited. We were ultimately able to get an IV. Labs, normal saline 1 L bolus, Zofran 4 mg IV, Protonix 40 mg IV and fentanyl 50 g IV ordered. Monitor patient. 0140: I discussed the case with Dr. Renner. He will see the patient in the ER and we will reevaluate at that time. 0230: Dr. Renner has seen the patient in the ER. He will admit the patient and take her to endoscopy today. This is for the intractable epigastric pain that she still has but it is better now. We will initiate Protonix drip. We will check chest x-ray to verify that there is no free air. Admit, observation status. Patient and family agree with plan. Diagnostic Imaging Diagonstic Imaging: Xray Plain Films/CT/US/NM/MRI: chest Comments No free air or infiltrate noted. Departure Communication (Admissions) Time/Spoke to Admitting Phy: 02:30 Impression Primary Impression: Abdominal pain Qualified Codes: R10.13 - Epigastric pain Disposition: ADMITTED INPATIENT Condition: Stable Admissions Decision to Admit Reason: Admit from ER (General) Decision to Admit/Date: September 29, 2017 Time/Decision to Admit Time: 02:30 Departure-Patient Inst. Referrals: [facility] (PCP/Family) Primary Care Physician OMEGA SANDOVAL MD September 29, 2017 00:43
[2017-09-29] MEDS ORDERED: LIDOCAINE 2% VISCOUS 15 ML UDC PO ONE (00:45)
[2017-09-29] MEDS ORDERED: ANTACID SUSP 30 ML UDC (MYLANTA) PO ONE (00:45)
[2017-09-29] MEDS ORDERED: morphine INJ 10 MG/ML 1ML (SYR OR VIAL) IM STA (01:09)
[2017-09-29] MEDS ORDERED: NS IV 1000 ML 1,000 ML IV ONE (01:36)
[2017-09-29] MEDS ORDERED: fentaNYL INJECTION 100 MCG/2 ML AMP IVP STA (01:36)
[2017-09-29] MEDS ORDERED: ONDANSETRON 4 MG/2 ML (SDV) Z0FRAN IVP ONE (01:45)
[2017-09-29] MEDS ORDERED: PANTOPRAZOLE 40 MG/10 ML (PROTONIX) VIAL IV ONE (01:45)
[2017-09-29 02:06] LABS: BASOPHILS % (AUTO) 0 % (0-10); EOSINOPHILS # (AUTO) 0.6 10^3/uL (0.0-0.3); EOSINOPHILS % (AUTO) 5 % (0-10); HEMATOCRIT 42 % (35-52); HEMOGLOBIN 14.2 G/DL (11.5-16.0); LYMPHOCYTES # (AUTO) 5.9 X 10^3 (1.0-4.0); LYMPHOCYTES % (AUTO) 47 % (12-44); MEAN CORPUSCULAR HEMOGLOBIN 31 PG (25-34); MEAN CORPUSCULAR HGB CONC 34 G/DL (32-36); MEAN CORPUSCULAR VOLUME 91 FL (80-99); MEAN PLATELET VOLUME 10.3 FL (7.4-10.4); MONOCYTES # (AUTO) 1.1 X 10^3 (0.0-1.0); MONOCYTES % (AUTO) 9 % (0-12); NEUTROPHILS # (AUTO) 4.9 X 10^3 (1.8-7.8); NEUTROPHILS % (AUTO) 39 % (42-75); PLATELET COUNT 285 10^3/uL (130-400); RED BLOOD COUNT 4.62 10^6/uL (4.35-5.85); RED CELL DISTRIBUTION WIDTH 13.1 % (10.0-14.5); WHITE BLOOD COUNT 12.5 10^3/uL (4.3-11.0)
[2017-09-29 02:26] LABS: ALANINE AMINOTRANSFERASE 27 U/L (0-55); ALKALINE PHOSPHATASE 69 U/L (40-136); AMYLASE 53 U/L (25-125); BILIRUBIN,TOTAL 0.2 MG/DL (0.1-1.0); BUN/CREATININE RATIO 21; CARBON DIOXIDE 24 MMOL/L (21-32); CHLORIDE 107 MMOL/L (98-107); CREATININE SERUM 0.81 MG/DL (0.60-1.30); GFR ESTIMATED > 60; GLUCOSE 94 MG/DL (70-105); LIPASE 67 U/L (8-78); MAGNESIUM 2.2 MG/DL (1.8-2.4); SODIUM 141 MMOL/L (135-145); TOTAL PROTEIN 7.5 GM/DL (6.4-8.2)
--- OUTSIDE RECORDS SUMMARY | 2017-09-29 02:55 | XMS REPORT | Continuity of Care Document ---
Author Author [facility] Address Unknown Phone Unavailable Allergies Active Description Code Type Severity Reaction Onset Reported/Identified Relationship to Patient Clinical Status Yes NKANo Known Allergies NKA Miscellaneous Allergy Unknown N/A 07/18/2005 Yes ACETAMINOPHEN ACETAMINOPHEN Mild CORICIDIN CAUSE 09/02/2005 Yes CHLORPHENAMINE CHLORPHENAMINE Mild CORICIDIN CAUSE 09/02/2005 Yes No Known Drug Allergies [id number] Drug Allergy Unknown N/A 11/13/2007 Medications There [...] 525.9 DENTAL DISORDER NOS 05/06/2014 JUSTIN MCLAIN SYSTEMS PLANNER Ot 634.90 SPON ABORT UNCOMPL-UNSP 05/06/2014 JUSTIN MCLAIN [employer] PL[employer] Ot 649.53 SPOTTING COMP , ANTEPARTUM COND 05/22/2014 Ot 784.0 05/22/2014 JUSTIN MCLAIN [employer] PLANNER Ot 521.00 UNSPEC DENTAL CARIES 05/22/2014 JUSTIN MCLAIN [employer] PLANNER Ot 525.9 DENTAL DISORDER NOS 05/23/2014 OMEGA [...] On 73.59 MANUAL ASSIST DELIV NEC 11/13/2007 00211 URINE TEST (IN- HOUSE) 04/18/2012 18058 URINE TEST (IN- HOUSE) 04/18/2012 69621 ROUTINE VENIPUNCTURE 04/27/2012 75422 HCG QUANTITATIVE 04/28/2012 73.6 EPISIOTOMY 02/27/2013 Results [...] culture - 02/15/17 04:14 Bacterial urine culture [id number] NRG COLONY COUNT <10,000 NRG FREE TEXT [...] - 05/28/17 10:19 TSH 1.67 mIU/L NRG Complete blood count (CBC) with automated white blood cell (WBC) differential - 09/29/17 01:37 Blood leukocytes automated count (number/volume) 12.5 10*3/uL 4.3-11.0 Blood erythrocytes automated count (number/volume) 4.62 10*6/uL 4.35-5.85 Venous blood hemoglobin measurement (mass/volume) 14.2 g/dL 11.5-16.0 Blood hematocrit (volume fraction) 42 % 35-52 Automated erythrocyte mean corpuscular volume 91 [foz_us] 80-99 Automated erythrocyte mean corpuscular hemoglobin (mass per erythrocyte) 31 pg 25-34 Automated erythrocyte mean corpuscular hemoglobin concentration measurement ( mass/volume) 34 g/dL 32-36 Automated erythrocyte distribution width ratio 13.1 % 10.0-14.5 Automated blood platelet count (count/volume) 285 10*3/uL 130-400 Automated blood platelet mean volume measurement 10.3 [foz_us] 7.4-10.4 Automated blood neutrophils/100 leukocytes 39 % 42-75 Automated blood lymphocytes/100 leukocytes 47 % 12-44 Blood monocytes/100 leukocytes 9 % 0-12 Automated blood eosinophils/100 leukocytes 5 % 0-10 Automated blood basophils/100 leukocytes 0 % 0-10 Blood neutrophils automated count (number/volume) 4.9 10*3 1.8-7.8 Blood lymphocytes automated count (number/volume) 5.9 10*3 1.0-4.0 Blood monocytes automated count (number/volume) 1.1 10*3 0.0-1.0 Automated eosinophil count 0.6 10*3/uL 0.0-0.3 Automated blood basophil count (count/volume) 0.0 10*3/uL 0.0-0.1 Comprehensive metabolic panel - 09/29/17 01:37 Serum or plasma sodium measurement (moles/volume) 141 mmol/L 135-145 Serum or plasma potassium measurement (moles/volume) 4.0 mmol/L 3.6-5.0 Serum or plasma chloride measurement (moles/volume) 107 mmol/L 98-107 Carbon dioxide 24 mmol/L 21-32 Serum or plasma anion gap determination (moles/volume) 10 mmol/L 5-14 Serum or plasma urea nitrogen measurement (mass/volume) 17 mg/dL 7-18 Serum or plasma creatinine measurement (mass/volume) 0.81 mg/dL 0.60-1.30 Serum or plasma urea nitrogen/creatinine mass ratio 21 NRG Serum or plasma creatinine measurement with calculation of estimated glomerular filtration rate > NRG Serum or plasma glucose measurement (mass/volume) 94 mg/dL 70-105 Serum or plasma calcium measurement (mass/volume) 9.0 mg/dL 8.5-10.1 Serum or plasma total bilirubin measurement (mass/volume) 0.2 mg/dL 0.1-1.0 Serum or plasma alkaline phosphatase measurement (enzymatic activity/volume) 69 U/L 40-136 Serum or plasma aspartate aminotransferase measurement (enzymatic activity/ volume) 18 U/L 5-34 Serum or plasma alanine aminotransferase measurement (enzymatic activity/volume ) 27 U/L 0-55 Serum or plasma protein measurement (mass/volume) 7.5 g/dL 6.4-8.2 Serum or plasma albumin measurement (mass/volume) 4.0 g/dL 3.2-4.5 Magnesium - 09/29/17 01:37 Magnesium 2.2 mg/dL 1.8-2.4 Serum or plasma amylase measurement (enzymatic activity/volume) - 09/29/17 01: 37 Serum or plasma amylase measurement (enzymatic activity/volume) 53 U /L 25-125 Lipase - 09/29/17 01:37 Lipase 67 U/L 8-78 Encounters ACCT No. Visit Date/Time Discharge Status Pt. Type Provider Facility Loc./Unit Complaint [id number] 03/11/2014 11:34:00 03/11/2014 23:59:59 CLS Outpatient GUDELIA COLES MD [id number] 10/12/2013 14:34:00 10/12/2013 23:59:59 CLS Outpatient FELIZ MARIANO APRN [id number] 07/13/2013 16:02:00 07/13/2013 23:59:59 CLS Outpatient LOU EASON APRN [id number] 06/09/2013 09:53:00 06/09/2013 23:59:59 CLS Outpatient KARI BOWERS APRN [id number] 10/23/2012 11:38:00 10/23/2012 23:59:59 CLS Outpatient KASSY MCCLURE MD, PAUL Ch [id number] 04/27/2012 14:48:00 04/27/2012 23:59:59 [place] [id number] 04/18/2012 09:13:00 04/18/2012 23:59:59 CLS Outpatient [id number] 05/28/2017 09:00:00 05/28/2017 23:59:59 CLS Outpatient ZAHEER NEWMANCHRIS [facility] [id number] 05/28/2017 09:00:00 Document Registration [id number] 06/16/2016 19:05:00 Document Registration [id number] 09/16/2017 03:19:00 09/16/2017 04:20:00 DIS Outpatient OMEGA SANDOVAL MD [facility] ER ABD PAIN, POSS ACID REFLUX [id number] 02/15/2017 04:00:00 02/15/2017 05:49:00 DIS Emergency ED EDMONDSON, TUCKER Daven[place] [facility] ER VOMITING,NAUSEA, DIARRHEA [id number] 07/16/2016 07:58:00 07/16/2016 11:05:00 DIS Outpatient RANDOLPH SMITH DO [facility] ENDO GERD/LUQ ABD PAIN [id number] 07/11/2016 06:20:00 07/11/2016 15:25:00 DIS Outpatient RANDOLPH SMITH DO [facility] PREOP GERD/LUQ ABD PAIN [id number] 12/25/2015 05:20:00 12/25/2015 07:33:00 DIS Emergency ORI EUGENE DO [facility] ER ABD PAIN [id number] 06/11/2015 11:30:00 06/11/2015 23:59:59 CLS Emergency WEN SCHWARZ MD [facility] ER DENTAL PAIN/ISSUES [id number] 05/27/2014 23:54:00 05/28/2014 01:13:00 DIS Emergency TUCKER WARD MD [facility] ER LEFT DENTAL PAIN, PER PT NO ACCIDENT [id number] 05/23/2014 19:59:00 05/23/2014 20:43:00 DIS Emergency OMEGA SANDOVAL MD [facility] ER JAW PAIN [id number] 05/22/2014 22:38:00 05/22/2014 23:18:00 DIS Emergency JUSTIN MCLAIN APRN [facility] ER TOOTH PAIN [id number] 05/06/2014 22:03:00 05/06/2014 23:15:00 DIS Emergency JUSTIN MCLAIN APRN [facility] ER 7 WKS;BLEEDING [id number] 04/04/2014 00:33:00 04/04/2014 01:17:00 DIS Emergency ED EDMONDSON, TUCKER [place] [facility] ER DENTAL [id number] 02/27/2013 03:47:00 02/28/2013 15:40:00 DIS Inpatient JIGAR RAE DO [facility] WS LEAKING FLUID [id number] 02/25/2013 09:22:00 02/25/2013 11:13:00 DIS Outpatient KIMBERLEE CASTILLO DO [facility] WSo C/O SPOTTING [id number] 02/16/2013 10:00:00 02/16/2013 12:15:00 DIS Outpatient JIGAR RAE DO [facility] WSo ABD PAIN [id number] 11/27/2012 17:40:00 11/27/2012 18:50:00 DIS Outpatient JIGAR RAE DO [facility] WSo LOWER BACK/PELVIC PAIN [id number] 09/22/2012 11:44:00 09/22/2012 23:59:59 CLS Outpatient COLTHARP MICHAEL MENDOZA [facility] QUICK RASH [id number] 09/29/2017 02:06:00 Document Registration [id number] 04/30/2017 09:06:00 Document Registration [id number] 04/30/2017 09:06:00 Document Registration [id number] 04/30/2017 09:06:00 Document Registration [id number] 04/30/2017 09:06:00 Document Registration [id number] 04/30/2017 09:06:00 Document Registration [id number] 04/30/2017 08:42:00 Document Registration [id number] 04/30/2017 08:42:00 Document Registration [id number] 04/30/2017 08:42:00 Document Registration [id number] 04/30/2017 08:42:00 Document Registration [id number] 04/30/2017 08:42:00 Document Registration [id number] 04/30/2017 08:42:00 Document Registration [id number] 04/30/2017 08:42:00 Document Registration [id number] 04/30/2017 08:42:00 Document Registration [id number] 04/30/2017 08:42:00 Document Registration [id number] 04/30/2017 08:42:00 Document Registration [id number] 04/30/2017 08:42:00 Document Registration [id number] 04/30/2017 08:42:00 Document Registration [id number] 04/30/2017 08:42:00 Document Registration [id number] 04/30/2017 08:42:00 Document Registration [id number] 04/30/2017 08:42:00 Document Registration [id number] 04/30/2017 08:42:00 Document Registration [id number] 04/30/2017 08:42:00 Document Registration [id number] 04/30/2017 08:42:00 Document Registration [id number] 04/30/2017 08:42:00 Document Registration [id number] 04/30/2017 08:42:00 Document Registration [id number] 04/30/2017 08:42:00 Document Registration [id number] 07/11/2016 15:20:00 Document Registration [id number] 07/29/2012 20:02:00 Document Registration [id number] 05/03/2012 19:35:00 Document Registration [id number] 04/25/2012 10:47:00 Document Registration [id number] 11/04/2011 08:20:00 Document Registration [id number] 09/05/2011 16:34:00 Document Registration [id number] 11/13/2007 04:38:00 Document Registration [id number] 11/09/2007 07:43:00 Document Registration [id number] 11/08/2007 13:05:00 Document Registration
[2017-09-29] MEDS ORDERED: PANTOPRAZOLE INJECTION 200 MG in D5W 100 ML IVPB 50 ML IV SCH (03:00)
[2017-09-29] MEDS: NS IV 1000 ML 1,000 ML IV SCH ×2 (03:15→11:21)
[2017-09-29 03:17] VITALS: BP 116/62
[2017-09-29] MEDS ORDERED: ONDANSETRON 4 MG/2 ML (SDV) Z0FRAN IV PRN (05:15)
[2017-09-29] MEDS ORDERED: CATHETER FLUSH 10 ML SYR IV PRN (05:30)
[2017-09-29] MEDS ORDERED: fentaNYL INJECTION 100 MCG/2 ML AMP IV PRN (05:30)
[2017-09-29] MEDS ORDERED: PANTOPRAZOLE DRIP 200 MG/D5W 50 ML IV SCH ×2 (05:30)
[2017-09-29] MEDS: CATHETER FLUSH 10 ML SYR IV SCH ×2 (06:21→12:40)
--- NOTE | 2017-09-29 07:11 | Diagnostic Imaging Report ---
INDICATION: PA and lateral views were obtained. FINDINGS: The heart size, mediastinal configuration, and pulmonary vascularity are within normal limits. There is no pleural effusion, pneumothorax, or pneumonia. The osseous structures are unremarkable. IMPRESSION: No acute cardiopulmonary abnormality. Dictated by: Dictated on workstation # [id number]
[2017-09-29 08:00] VITALS: BP 123/61
[2017-09-29] MEDS ORDERED: LOVA20TA2 PO (10:06)
--- NOTE | 2017-09-29 11:39 | History & Physical-Surgical ---
History of Present Illness History of Present Illness Reason for visit/HPI HPI per ED: Here with report of epigastric abdominal pain that is burning and not better with her typical medicines. She does have history of reflux disease and has been evaluated for this previously. We saw her about 2 weeks ago for the same. GI cocktail work at that time. She is working on getting follow-up with the surgeon and will follow-up with her doctor this week. Did vomit a little bit tonight. No report of blood. Timing/Duration: 4-6 Hours Severity/Quality: Moderate, Burning Location: Epigastric Radiation: No Radiation Activities at Onset: None Modifying Factors: Worsens With Eating Associated Symptoms: No Back Pain, No Chest Pain, No Fever/Chills; Heartburn, Nausea/Vomiting; No Shortness of Air, No Weakness When seen last night pt states she has basically had abd pain daily for over a year; she did have EGD 06/2016 which showed ulcers. She has taken PPI and carafate; with very little resolution of her symptoms. She states she doesn't eat very much, mainly drinks milk. Milk helps her symptoms; "I have been drinking mild for these problems since kindergarten". Rating the pain as 10 out of 10, occasionally goes down to 5 out of 10. H. Pylori was negative from pathology of last EGD. Date of Admission September 29, 2017 at 02:45 Time Seen by Provider: 02:17 I consulted on this patient on 09/29/17 11:33 Attending Physician Mario Alberto Renner DO Admitting Physician [place] Consult Allergies and Home Medications Allergies Coded Allergies: NKANo Known Allergies (Verified Allergy, Unknown, 07/18/05) Home Medications Dicyclomine HCl 10 Mg Capsule, 10 MG PO TID PRN for DISCOMFORT, (Reported) Lovastatin 20 Mg Tablet, 10 MG PO DAILY, (Reported) TAKES 1/2 (20MG) TABLET Norgestimate-Ethinyl Estradiol 1 Each Tablet, 1 TAB PO DAILY, (Reported) Pantoprazole Sodium 40 Mg Tablet.dr, 40 MG PO DAILY, (Reported) Spironolactone 100 Mg Tablet, 100 MG PO BID, (Reported) Sucralfate 1 Gm Tablet, 1 GM PO ACHS, (Reported) Patient Home Medication List Home Medication List Reviewed: Yes Past Latzmez-Dqwzyc-Idjpdw Hx Patient Social History Alcohol Use: Denies Use Recreational Drug Use: No Smoking Status: Current Someday Smoker Type Used: Cigarettes Recent Foreign Travel: No Contact w/Someone Who Travel: No Recent Infectious Disease Expo: No Recent Hopitalizations: No Physical Abuse Screen: No Sexual Abuse: No Immunizations Up To Date Tetanus Booster (TDap): Unknown Date of Influenza Vaccine: Feb 17, 2012 Seasonal Allergies Seasonal Allergies: No Surgeries History of Surgeries: Yes (DENTAL, EGD) Surgeries: Abdominal Respiratory History of Respiratory Disorde: No Cardiovascular History of Cardiac Disorders: Yes Cardiac Disorders: Hypertension Neurological History of Neurological Disord: No Reproductive System Hx Reproductive Disorders: Yes ("LOW TESTOSTERONE" ) Sexually Transmitted Disease: No HIV/AIDS: No Female Reproductive Disorders: Denies Genitourinary History of Genitourinary Disor: No Gastrointestinal History of Gastrointestinal Di: Yes (chronic gastritis) Gastrointestinal Disorders: Gastroesophageal Reflux Musculoskeletal History of Musculoskeletal Dis: Yes (BACK PAIN DUE TO WEIGHT) Musculoskeletal Disorders: Chronic Back Pain Endocrine History of Endocrine Disorders: No HEENT History of HEENT Disorders: No Cancer History of Cancer: No Psychosocial History of Psychiatric Problem: Yes (MILD ANXIETY) Behavioral Health Disorders: Anxiety Integumentary History of Skin or Integumenta: No Blood Transfusions History of Blood Disorders: No Adverse Reaction to a Blood Tr: No Family Medical History Significant Family History: Cancer Family Medial History: Alzheimer's disease MATERNAL GRANDMOTHER Arthritis MATERNAL GRANDMOTHER Diabetes mellitus MATERNAL GRANDMOTHER FH: lung cancer 19 FATHER FH: sleep apnea MATERNAL GRANDMOTHER FH: stroke MATERNAL GRANDMOTHER FH: thyroid cancer 19 MOTHER Thyroid disease 19 MOTHER Constitutional: chills; No diaphoresis, No weight loss EENTM: No blurred vision, No double vision, No mouth pain, No mouth swelling, No epistaxis, No throat swelling Respiratory: No cough, No dyspnea on exertion, No hemoptysis Cardiovascular: No chest pain, No edema, No palpitations Gastrointestinal: abdominal pain; No constipation, No diarrhea, No dysphagia, No hematemesis Genitourinary: No dysuria, No frequency, No hematuria : No Musculoskeletal: joint pain, joint swelling, muscle stiffness Skin: No change in color, No change in hair/nails, No pruritus Psychiatric/Neurological: Anxiety; Denies Seizure, Denies Tingling pt denies any abnormal bleeding or bruising, denies any heat or cold intolerance Physical Exam Vital Signs Vital Signs - First Documented 5/14/18 00:33 Temp 98.0 Pulse 78 Resp 20 B/P (MAP) 142/104 (117) Pulse Ox 97 O2 Delivery Room Air Capillary Refill : Less Than 3 Seconds General Appearance: WD/WN, Anxious, Mild Distress Eyes: Bilateral Eye PERRL, Bilateral Eye EOMI HEENT: Pharynx Normal; No Pale Conjunctivae (L), No Pale Conjunctivae (R), No Scleral Icterus (L), No Scleral Icterus (R) Neck: Full Range of Motion, Normal Inspection, Non Tender, Supple Respiratory: Chest Non Tender, Lungs Clear, Normal Breath Sounds, No Accessory Muscle Use, No Respiratory Distress Cardiovascular: Regular Rate, Rhythm, No Edema, No Murmur, Normal Peripheral Pulses Gastrointestinal: Normal Bowel Sounds, No Organomegaly, No Pulsatile Mass, Soft , Tenderness (mostly epigastric) Rectal: Deferred Back: No CVA Tenderness, No Vertebral Tenderness Extremity: Normal Capillary Refill, Non Tender, No Calf Tenderness, No Pedal Edema Neurologic/Psychiatric: Alert, Oriented x3, No Motor/Sensory Deficits, Normal Mood/Affect, transit driver II-XII Norm as Tested Skin: Normal Color, Warm/Dry Lymphatic: No Adenopathy (neck, axilla or groin) Data Review Labs Laboratory Tests 09/29/17 01:37: White Blood Count 12.5H, Red Blood Count 4.62, Hemoglobin 14.2, Hematocrit 42, Mean Corpuscular Volume 91, Mean Corpuscular Hemoglobin 31, Mean Corpuscular Hemoglobin Concent 34, Red Cell Distribution Width 13.1, Platelet Count 285, Mean Platelet Volume 10.3, Neutrophils (%) (Auto) 39L, Lymphocytes (%) (Auto) 47H, Monocytes (%) (Auto) 9, Eosinophils (%) (Auto) 5, Basophils (%) (Auto) 0, Neutrophils # (Auto) 4.9, Lymphocytes # (Auto) 5.9H, Monocytes # (Auto) 1.1H, Eosinophils # (Auto) 0.6H, Basophils # (Auto) 0.0, Sodium Level 141, Potassium Level 4.0, Chloride Level 107, Carbon Dioxide Level 24, Anion Gap 10, Blood Urea Nitrogen 17, Creatinine 0.81, Estimat Glomerular Filtration Rate > 60, BUN/ Creatinine Ratio 21, Glucose Level 94, Calcium Level 9.0, Magnesium Level 2.2, Total Bilirubin 0.2, Aspartate Amino Transf (AST/SGOT) 18, Alanine Aminotransferase (ALT/SGPT) 27, Alkaline Phosphatase 69, Total Protein 7.5, Albumin 4.0, Amylase Level 53, Lipase 67 Assessment/Plan Assessment/Plan Admission Diagonsis GERD Hx of Gastric Ulcers Abdominal pain Admission Status: Observation Assessment/Plan GERD Hx of Gastric Ulcers Abdominal pain Pt will be admitted with IVF, pain control and Protonix drip. Plan to do EGD with possible biopsy; discussed risks and complications with pt, not limited to pain, bleeding, infection and possible esophageal perforation. All questions answered to pt's satisfaction. Clinical Quality Measures DVT/VTE Risk/Contraindication: Risk Factor Score Per Nursin RFS Level Per Nursing on Admit: 2=Moderate MARIO ALBERTO RENNER DO September 29, 2017 11:39
[2017-09-29 12:00] VITALS: BP 115/67
[2017-09-29] MEDS ORDERED: LACTATED RINGERS 1,000 ML IV ONE (14:27)
[2017-09-29] MEDS ORDERED: proPOfol 200 MG/20 ML (DIPRIVAN) VIAL IV ONE ×2 (14:34→15:18)
[2017-09-29 14:35] VITALS: BP 129/78
[2017-09-29] MEDS ORDERED: MIDAZOLAM 2 MG/2 ML (VERSED) VIAL ONE (14:35)
--- NOTE | 2017-09-29 15:33 | Progress Note-Post Operative ---
Post-Operative Progess Note Surgeon (s)/Tank Assembler (s) Surgeon JODY SERRANO DO Tank Assembler: none Pre-Operative Diagnosis gerd, left upper quadrant pain Post-Operative Diagnosis Gastritis and Duodenitis ? Healed ulcers ?Choudhary's Esophagus Procedure & Operative Findings Date of Procedure 09/29/17 Procedure Performed/Findings EGD with bx Anesthesia Type IV sedation by Anesthesiologist Estimated Blood Loss Estimated blood loss (mL): scant Specimens/Packing Specimens Removed duodenal bx antral bx body of stomach bx GE jxn bx JODY SERRANO DO September 29, 2017 15:33
--- NOTE | 2017-09-29 15:35 | Endoscopy Discharge Instruct ---
Endo Procedure/Findings Findings 1.: Gastritis, Other Findings (Duodenitis) 2.: Gastric Ulcer (???) 3.: Choudhary's Esophagus Discharge Instructions - Activity: You might feel a little sleepy until tomorrow. This is due to the medicine you received to relax you. Until tomorrow, you should: NOT drive a car, operate machinery or power tools. NOT drink any alcoholic beverages. NOT make any important decisions or sign importortant papers. Do not return to work until tomorrow, unless otherwise instructed. Resume previous activities tomorrow. Diet: Start by taking liquids. If you tolerate liquids, advance to solid food. Make appointment for one week. Notify Physician - If you experience excessive bleeding, unusual abdominal pain, fever, or chest pain, contact your doctor immediately. Follow-Up: - I have received and understand the above instructions and will call my doctor if I have any further questions. Patient Signature Date Nurse Signature Other (Relationship) JODY SERRANO DO September 29, 2017 15:34
[2017-09-29] MEDS ORDERED: HURRICAINE EXT TUBE (BENZOCAINE) XX PRN (15:45)
--- NOTE | 2017-09-29 16:53 | Anesthesia-General Post-Op ---
MAC Patient Condition Mental Status/LOC: Same as Preop Cardiovascular: Satisfactory Nausea/Vomiting: Absent Respiratory: Satisfactory Pain: Controlled Complications: Absent Post Op Complications Complications None Follow Up Care/Instructions Patient Instructions None needed. Anesthesiology Discharge Order Discharge Order Patient is doing well, no complaints, stable vital signs, no apparent adverse anesthesia problems. No complications reported per nursing. LOLY ARRIAZA CRNA September 29, 2017 16:53
[2017-09-29 17:00] VITALS: BP 129/78
--- NOTE | 2017-09-29 23:05 | OPERATIVE REPORT ---
DATE OF SERVICE: 09/29/2017 PREOPERATIVE DIAGNOSES: Gastritis, history of stomach ulcers and abdominal pain. POSTOPERATIVE DIAGNOSES: 1. Gastritis. 2. Duodenitis. 3. Questionable healing ulcers. 4. Choudhary esophagus. PROCEDURE: EGD with biopsy. SURGEON: Mario Alberto Renner DO. FILM DEVELOPER: None. ANESTHESIA: IV sedation by the anesthesiologist. BLOOD LOSS: Scant. FLUIDS: Per Anesthesia. SPECIMEN: One biopsy from the duodenum, one biopsy from the antrum, one biopsy from the body of the stomach and then one biopsy from the GE junction. INDICATION FOR PROCEDURE: The patient is a 32-year-old female who had an EGD just over a year ago, which showed ulcers. She has been on Protonix and Carafate since then she states she has been taking it, but nothing has changed her pain. Occasionally, she has some good days, but she usually has pain every day, got severely worse, came in the emergency room and was admitted to have an EGD performed. FINDINGS: The patient had some gastritis, duodenitis, possibly healing ulcers, but no active ulcers and no scars from ulcers. Biopsy was done in the duodenum, in the antrum, at the body of the stomach and then at the GE junction. PROCEDURE NOTE: After informed consent was obtained, the patient was brought to the endoscopy suite and placed in the bed in the left lateral decubitus position. She was administered IV sedation by the anesthesiologist, who then monitored her vitals the entire time, heart rate, blood pressure and pulse ox and the scope was inserted down the mouth into the esophagus and down towards the stomach all the way down and noted the GE junction, it looked like there was some creeping up of the Z line. This looked like a little bit of a Choudhary esophagus, pushed into the stomach and noted some gastritis, then pushed into the first portion of the duodenum and saw some duodenitis and also looked like some possible healing ulcers. Biopsy done in the first portion of the duodenum and then pulled back and did a biopsy of the antrum, decided to do another biopsy of the body of the stomach because of the severe gastritis (in a prior case had found a negative H. pylori from antral biopsy but then a biopsy of the cardia was positive). On the way in I thought I saw a small hiatal hernia. I then pulled the scope back up retroflex to look up there. I then pulled the scope into the esophagus, did a biopsy of the GE junction at the portion where it looked like it was creeping up and then continued up the esophagus, took another picture, looked normal and then pulled the scope out of the mouth. The patient tolerated the procedure well and she was recovered in the endoscopy suite. Job ID: [id number] DocumentID: [id number] Dictated Date: 09/29/2017 15:40:23 Electrician Helper Date: 09/29/2017 23:04:13 Dictated By: DO RIOS ROSA
--- OUTSIDE RECORDS SUMMARY | 2017-10-01 13:16 | XMS REPORT | Continuity of Care Document ---
Author Author Formerly [facility], Later [facility] Address Unknown Phone Unavailable Allergies Active Description Code Type Severity Reaction Onset Reported/Identified Relationship to Patient Clinical Status Yes NKANo Known Allergies NKA Miscellaneous Allergy Unknown N/A 07/18/2005 Yes ACETAMINOPHEN ACETAMINOPHEN Mild CORICIDIN CAUSE 09/02/2005 Yes CHLORPHENAMINE CHLORPHENAMINE Mild CORICIDIN CAUSE 09/02/2005 Yes No Known Drug Allergies [id number] Drug Allergy Unknown N/A 11/13/2007 Medications There [...] BOWERS APRN S 784.0 headache 10/28/2011 LOU ESAON APRN R 784.0 headache 10/28/2011 FELIZ MARIANO [...] 06/09/2013 GUDELIA COLES MD 278.00 OBESITY 06/09/2013 GUEDLIA COLES MD 300.00 ANXIETY UNSPEC 06/09/2013 GUDELIA [...] 525.9 DENTAL DISORDER NOS 05/06/2014 JUSTIN MCLAIN DIAL SCREW ASSEMBLER Ot 634.90 SPON ABORT UNCOMPL-UNSP 05/06/2014 JUSTIN MCLAIN DIAL SCREW ASSEMBLER Ot 649.53 SPOTTING COMP , ANTEPARTUM COND 05/22/2014 Ot 784.0 05/22/2014 JUSTIN MCLAIN DIAL SCREW ASSEMBLER Ot 521.00 UNSPEC DENTAL CARIES 05/22/2014 JUSTIN MCLAIN DIAL SCREW ASSEMBLER Ot 525.9 DENTAL DISORDER NOS 05/23/2014 OMEGA [...] On 73.59 MANUAL ASSIST DELIV NEC 11/13/2007 82019 URINE TEST (IN- HOUSE) 04/18/2012 82280 URINE TEST (IN- HOUSE) 04/18/2012 67974 ROUTINE VENIPUNCTURE 04/27/2012 43052 HCG QUANTITATIVE 04/28/2012 73.6 EPISIOTOMY 02/27/2013 Results [...] culture - 02/15/17 04:14 Bacterial urine culture [id number] NRG COLONY COUNT <10,000 NRG FREE TEXT [...] - 09/29/17 01:37 Lipase 67 U/L 8-78 Urine beta human chorionic gonadotropin (hCG) measurement - 09/29/17 13:15 Urine beta human chorionic gonadotropin (hCG) measurement NEGATIVE NEGATIVE Encounters ACCT No. Visit Date/Time Discharge Status Pt. Type Provider Facility Loc./Unit Complaint [id number] 03/11/2014 11:34:00 03/11/2014 23:59:59 CLS Outpatient GUDELIA COLES MD [id number] 10/12/2013 14:34:00 10/12/2013 23:59:59 CLS Outpatient FELIZ MARIANO APRN [id number] 07/13/2013 16:02:00 07/13/2013 23:59:59 CLS Outpatient LOU EASON APRN [id number] 06/09/2013 09:53:00 06/09/2013 23:59:59 CLS Outpatient KARI BOWERS APRN [id number] 10/23/2012 11:38:00 10/23/2012 23:59:59 CLS Outpatient PAUL ULLOA MD [id number] 04/27/2012 14:48:00 04/27/2012 23:59:59 [place] [id number] 04/18/2012 09:13:00 04/18/2012 23:59:59 CLS Outpatient [id number] 05/28/2017 09:00:00 05/28/2017 23:59:59 CLS Outpatient CHRIS SCHWAB APRN [facility] [id number] 05/28/2017 09:00:00 Document Registration [id number] 06/16/2016 19:05:00 Document Registration [id number] 09/29/2017 02:45:00 09/29/2017 17:05:00 DIS Inpatient JODY SERRANO DO [facility] 4TH EPIGASTRIC ABD PAIN [id number] 09/16/2017 03:19:00 09/16/2017 04:20:00 DIS Outpatient OMEGA SANDOVAL MD [facility] ER ABD PAIN, POSS ACID REFLUX [id number] 02/15/2017 04:00:00 02/15/2017 05:49:00 DIS Emergency ED EDMONDSON, TUCKER Davenport [facility] ER VOMITING,NAUSEA, DIARRHEA [id number] 07/16/2016 07:58:00 07/16/2016 11:05:00 DIS Outpatient SMITH RANDOLPH MENDOZA [facility] ENDO GERD/LUQ ABD PAIN [id number] 07/11/2016 06:20:00 07/11/2016 15:25:00 DIS Outpatient RANDOLPH SMITH DO [facility] PREOP GERD/LUQ ABD PAIN [id number] 12/25/2015 05:20:00 12/25/2015 07:33:00 DIS Emergency ORI EUGENE DO [facility] ER ABD PAIN [id number] 06/11/2015 11:30:00 06/11/2015 23:59:59 CLS Emergency WEN SCHWARZ MD [facility] ER DENTAL PAIN/ISSUES [id number] 05/27/2014 23:54:00 05/28/2014 01:13:00 DIS Emergency TUCKER WARD MD [facility] ER LEFT DENTAL PAIN, PER PT NO ACCIDENT [id number] 05/23/2014 19:59:00 05/23/2014 20:43:00 DIS Emergency LORI EDMONDSON, OMEGA Angela [facility] ER JAW PAIN [id number] 05/22/2014 22:38:00 05/22/2014 23:18:00 DIS Emergency JUSTIN MCLAIN APRN [facility] ER TOOTH PAIN [id number] 05/06/2014 22:03:00 05/06/2014 23:15:00 DIS Emergency JUSTIN MCLAIN APRN [facility] ER 7 WKS;BLEEDING [id number] 04/04/2014 00:33:00 04/04/2014 01:17:00 DIS Emergency ED EDMONDSON, TUCKER Davenport [facility] ER DENTAL [id number] 02/27/2013 03:47:00 02/28/2013 15:40:00 DIS Inpatient JIGAR RAE DO [facility] WS LEAKING FLUID [id number] 02/25/2013 09:22:00 02/25/2013 11:13:00 DIS Outpatient KIMBERLEE CASTILLO DO S [facility] WSo C/O SPOTTING [id number] 02/16/2013 10:00:00 02/16/2013 12:15:00 DIS Outpatient JIGAR RAE DO [facility] WSo ABD PAIN [id number] 11/27/2012 17:40:00 11/27/2012 18:50:00 DIS Outpatient JIGAR RAE DO [facility] WSo LOWER BACK/PELVIC PAIN [id number] 09/22/2012 11:44:00 09/22/2012 23:59:59 CLS Outpatient COLTHARP MICHAEL MENDOZA [facility] QUICK RASH [id number] 04/30/2017 09:06:00 Document Registration [id number] 04/30/2017 09:06:00 Document Registration [id number] 04/30/2017 09:06:00 Document Registration [id number] 04/30/2017 09:06:00 Document Registration [id number] 04/30/2017 09:06:00 Document Registration [id number] 04/30/2017 08:42:00 Document Registration [id number] 04/30/2017 08:42:00 Document Registration [id number] 04/30/2017 08:42:00 Document Registration [id number] 04/30/2017 08:42:00 Document Registration [id number] 04/30/2017 08:42:00 Document Registration [id number] 04/30/2017 08:42:00 Document Registration [id number] 04/30/2017 08:42:00 Document Registration [id number] 04/30/2017 08:42:00 Document Registration [id number] 04/30/2017 08:42:00 Document Registration [id number] 04/30/2017 08:42:00 Document Registration [id number] 04/30/2017 08:42:00 Document Registration [id number] 04/30/2017 08:42:00 Document Registration [id number] 04/30/2017 08:42:00 Document Registration [id number] 04/30/2017 08:42:00 Document Registration [id number] 04/30/2017 08:42:00 Document Registration [id number] 04/30/2017 08:42:00 Document Registration [id number] 04/30/2017 08:42:00 Document Registration [id number] 04/30/2017 08:42:00 Document Registration [id number] 04/30/2017 08:42:00 Document Registration [id number] 04/30/2017 08:42:00 Document Registration [id number] 04/30/2017 08:42:00 Document Registration [id number] 07/11/2016 15:20:00 Document Registration [id number] 07/29/2012 20:02:00 Document Registration [id number] 05/03/2012 19:35:00 Document Registration [id number] 04/25/2012 10:47:00 Document Registration [id number] 11/04/2011 08:20:00 Document Registration [id number] 09/05/2011 16:34:00 Document Registration [id number] 11/13/2007 04:38:00 Document Registration [id number] 11/09/2007 07:43:00 Document Registration [id number] 11/08/2007 13:05:00 Document Registration
== END 2017-09-29 17:05 | disposition home or self-care (01) ==
LOC: EDUNIT# 00:29 → ER 00:30 → UNDOADMOB 02:45 → 4TH 02:45 → SDC 03:15 → 4TH 15:27 → SDC 17:05 → UNDODISOB 17:05
PROVIDERS: ATTEND Surgery
DX: K29.70 Gastritis, unspecified, without bleeding (principal); K29.80 Duodenitis without bleeding; K22.70 Barrett's esophagus without dysplasia; I10 Essential (primary) hypertension; F17.210 Nicotine dependence, cigarettes, uncomplicated; Z79.899 Other long term (current) drug therapy
CPT/HCPCS: 36415; 71046; 80053; 82150; 83690; 83735; 84703; 85025; 88305; 93005; 96361; 96372; 96374; 96375

== ENCOUNTER 2018-01-18 04:08 | Emergency (ER) | payer SELFPAY ==
[~2018-01-18] VITALS: Ht 170.2 cm; Wt 149.7 kg
[~2018-01-18 04:08] MED LIST changes: +LOVA20TA2 PO; -SPIR100T2 PO; +SPIR100T4 PO
--- OUTSIDE RECORDS SUMMARY | 2018-01-18 04:16 | XMS REPORT | Continuity of Care Document ---
Author Author [facility] Organization [facility] Address Unknown Phone Unavailable Allergies Active Description Code Type Severity Reaction Onset Reported/Identified Relationship to Patient Clinical Status Yes ACETAMINOPHEN ACETAMINOPHEN Mild CORICIDIN CAUSE 09/02/2005 Yes CHLORPHENAMINE CHLORPHENAMINE Mild CORICIDIN CAUSE 09/02/2005 Yes No Known Drug Allergies [id number] Drug Allergy Unknown N/A 11/13/2007 Yes NKANo Known Allergies NKA Miscellaneous Allergy Unknown N/A 09/29/2017 Medications There is no data. Problems Date [...] 640.00 THREATENED 04/27/2012 KASSY MCCLURE MD, PAUL Ch 640.00 THREATENED 04/27/2012 KARI BOWERS APRN S [...] 388.30 ringing in the ears (tinnitus) 10/23/2012 YUMI NEWMAN, LOU R 388.30 ringing in the ears (tinnitus) 10/23/2012 FELIZ MARIANO APRN R 388.30 ringing in the ears (tinnitus) 10/23/2012 GUDELIA COLES MD 388.30 ringing in the ears (tinnitus) 11/27/2012 JIGAR RAE DO Ot 644.03 THRT BHAKTI LABOR-ANTEPART 02/16/2013 JIGAR RAE DO Ot 648.93 OTH CURR COND-ANTEPARTUM 02/16/2013 JIGAR RAE DO Ot 789.00 ABDOMINAL PAIN, UNSPECIFIED SITE 02/25/2013 FENECH KIMBERLEE MENDOZA S Ot 644.13 THREAT LABOR NEC-ANTEPAR 02/28/2013 [...] BOWERS APRN S 300.00 ANXIETY UNSPEC 06/09/2013 SCOTT BOWERS APRNA S V70.0 EXAM - ROUTINE H&P 06/09/2013 LOU EASON APRN R 278.00 OBESITY 06/09/2013 GARETT EASON APRNINA R 300.00 ANXIETY UNSPEC 06/09/2013 GARETT EASON APRNINA R V70.0 EXAM - ROUTINE H&P 06/09/2013 [...] 525.9 DENTAL DISORDER NOS 05/06/2014 JUSTIN MCLAIN FINANCIAL COST ANALYST Ot 634.90 SPON ABORT UNCOMPL-UNSP 05/06/2014 JUSTIN MCLAIN FINANCIAL COST ANALYST Ot 649.53 SPOTTING COMP , ANTEPARTUM COND 05/22/2014 Ot 784.0 05/22/2014 JUSTIN MCLAIN FINANCIAL COST ANALYST Ot 521.00 UNSPEC DENTAL CARIES 05/22/2014 JUSTIN MCLAIN FINANCIAL COST ANALYST Ot 525.9 DENTAL DISORDER NOS 05/23/2014 OMEGA [...] Ot K21.9 GASTRO-ESOPHAGEAL REFLUX DISEASE WITHOUT 07/11/2016 RANDOLPH SMITH DO D Ot R10.12 LEFT UPPER QUADRANT PAIN 07/11/2016 RANDOLPH SMITH DO Ot Z01.818 ENCOUNTER FOR OTHER PREPROCEDURAL EXAMIN 07/12/2016 RANDOLPH SMITH DO Ot K21.9 GASTRO-ESOPHAGEAL REFLUX DISEASE WITHOUT 07/12/2016 RANDOLPH SMITH DO Ot R10.12 LEFT UPPER QUADRANT PAIN 07/12/2016 RANDOLPH SMITH DO Ot Z01.818 ENCOUNTER FOR OTHER PREPROCEDURAL EXAMIN 07/16/2016 RANDOLPH SMITH DO Ot K20.9 ESOPHAGITIS, UNSPECIFIED 07/16/2016 RANDOLPH SMITH DO Ot K21.9 GASTRO-ESOPHAGEAL REFLUX DISEASE WITHOUT 07/16/2016 RANDOLPH SMITH DO Ot K25.7 CHRONIC GASTRIC ULCER WITHOUT HEMORRHAGE 07/16/2016 RANDOLPH SMITH DO Ot K29.70 GASTRITIS, UNSPECIFIED, WITHOUT BLEEDING 07/16/2016 RANDOLPH SMITH DO Ot K29.80 DUODENITIS WITHOUT BLEEDING 07/16/2016 RANDOLPH SMITH DO Ot K44.9 DIAPHRAGMATIC HERNIA WITHOUT OBSTRUCTION 07/22/2016 RANDOLPH SMITH DO Ot K20.9 ESOPHAGITIS, UNSPECIFIED 07/22/2016 RANDOLPH SMITH DO Ot K21.9 GASTRO-ESOPHAGEAL REFLUX DISEASE WITHOUT 07/22/2016 RANDOLPH SMITH DO Ot K25.7 CHRONIC GASTRIC ULCER WITHOUT HEMORRHAGE [...] CELL COUNT, UNSPECI 02/18/2017 TUCKER WARD MD T Ot F17.210 NICOTINE DEPENDENCE, CIGARETTES, UNCOMPL 02/18/2017 [...] Ot K21.9 GASTRO-ESOPHAGEAL REFLUX DISEASE WITHOUT 09/22/2017 LORI EDMONDSON, OMEGA Miller Ot K29.60 OTHER GASTRITIS WITHOUT BLEEDING 09/22/2017 LORI EDMONDSON, OMEGA Miller Ot R10.13 EPIGASTRIC PAIN 09/22/2017 LORI EDMONDSON, OMEGA Miller Ot Z87.19 PERSONAL HISTORY OF OTHER DISEASES OF TH 09/29/2017 DELMAN DO, JODY B Ot F17.210 NICOTINE DEPENDENCE, CIGARETTES, UNCOMPL 09/29/2017 DELMAN DO, JODY B Ot I10 ESSENTIAL (PRIMARY) HYPERTENSION 09/29/2017 DELMAN DO, JODY B Ot 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 09/29/2017 DELMAN DO, JODY B Ot K29.70 GASTRITIS, UNSPECIFIED, WITHOUT BLEEDING 09/29/2017 DELMAN DO, JODY B Ot K29.80 DUODENITIS WITHOUT BLEEDING 09/29/2017 DELMAN DO, JODY B Ot Z79.899 OTHER RESIDENTIAL (CURRENT) DRUG THERAPY 10/01/2017 DELMAN DO, JODY B Ot F17.210 NICOTINE DEPENDENCE, CIGARETTES, UNCOMPL 10/01/2017 DELMAN DO, JODY B Ot I10 ESSENTIAL (PRIMARY) HYPERTENSION 10/01/2017 DELMAN DO, JODY B Ot 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 10/01/2017 DELMAN DO, JODY B Ot K29.70 GASTRITIS, UNSPECIFIED, WITHOUT BLEEDING 10/01/2017 DELMAN DO, JODY B Ot K29.80 DUODENITIS WITHOUT BLEEDING 10/01/2017 DELMAN DO, JODY B Ot Z79.899 OTHER RESIDENTIAL (CURRENT) DRUG THERAPY 10/02/2017 DELMAN DO, JODY B Ot F17.210 NICOTINE DEPENDENCE, CIGARETTES, UNCOMPL 10/02/2017 DELMAN DO, JODY B Ot I10 ESSENTIAL (PRIMARY) HYPERTENSION 10/02/2017 DELMAN DO, JODY B Ot 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 10/02/2017 DELMAN DO, JODY B Ot K29.70 GASTRITIS, UNSPECIFIED, WITHOUT BLEEDING 10/02/2017 DELMAN DO, JODY B Ot K29.80 DUODENITIS WITHOUT BLEEDING 10/02/2017 DELMAN DO, JODY B Ot Z79.899 OTHER AVIONICS ENGINEER (CURRENT) DRUG THERAPY Procedures Code Description Performed By Performed On 73.59 MANUAL ASSIST DELIV NEC 11/13/2007 30448 URINE TEST (IN- HOUSE) 04/18/2012 29485 URINE TEST (IN- HOUSE) 04/18/2012 51747 ROUTINE VENIPUNCTURE 04/27/2012 54471 HCG QUANTITATIVE 04/28/2012 73.6 EPISIOTOMY 02/27/2013 Results [...] culture - 02/15/17 04:14 Bacterial urine culture [id number] NRG COLONY COUNT <10,000 NRG FREE TEXT [...] Status Pt. Type Provider Facility Loc./Unit Complaint [id number] 09/29/2017 03:15:00 09/29/2017 17:05:00 DIS Outpatient JODY SERRANO DO [facility] SDC EPIGASTRIC ABD PAIN [id number] 09/16/2017 03:19:00 09/16/2017 04:20:00 DIS Outpatient OMEGA SANDOVAL MD [facility] ER ABD PAIN, POSS ACID REFLUX [id number] 02/15/2017 04:00:00 02/15/2017 05:49:00 DIS Emergency TUCKER WARD MD [facility] ER VOMITING,NAUSEA, DIARRHEA [id number] 07/16/2016 07:58:00 07/16/2016 11:05:00 DIS Outpatient RANDOLPH SMITH DO [facility] ENDO GERD/LUQ ABD PAIN [id number] 07/11/2016 06:20:00 07/11/2016 15:25:00 DIS Outpatient RANDOLPH SMITH DO [facility] PREOP GERD/LUQ ABD PAIN [id number] 12/25/2015 05:20:00 12/25/2015 07:33:00 DIS Emergency ORI EUGENE DO [facility] ER ABD PAIN [id number] 06/11/2015 11:30:00 06/11/2015 23:59:59 CLS Emergency KARISHMA EDMONDSON, WEN Trammell [facility] ER DENTAL PAIN/ISSUES [id number] 05/27/2014 23:54:00 05/28/2014 01:13:00 DIS Emergency ED EDMONDSON, TUCKER Davenport [facility] ER LEFT DENTAL PAIN, PER PT NO ACCIDENT [id number] 05/23/2014 19:59:00 05/23/2014 20:43:00 DIS Emergency LORI EDMONDSON, OMEGA Miller [facility] ER JAW PAIN [id number] 05/22/2014 22:38:00 05/22/2014 23:18:00 DIS Emergency JUSTIN MCLAIN APRN [facility] ER TOOTH PAIN [id number] 05/06/2014 22:03:00 05/06/2014 23:15:00 DIS Emergency JUSTIN MCLAIN APRN [facility] ER 7 WKS;BLEEDING [id number] 04/04/2014 00:33:00 04/04/2014 01:17:00 DIS Emergency ED EDMONDSON, TUCKER Davenport [facility] ER DENTAL [id number] 02/27/2013 03:47:00 02/28/2013 15:40:00 DIS Inpatient JIGAR RAE DO [facility] WS LEAKING FLUID [id number] 02/25/2013 09:22:00 02/25/2013 11:13:00 DIS Outpatient KIMBERLEE CASTILLO DO [facility] WSo C/O SPOTTING [id number] 02/16/2013 10:00:00 02/16/2013 12:15:00 DIS Outpatient JIGAR RAE DO [facility] WSo ABD PAIN [id number] 11/27/2012 17:40:00 11/27/2012 18:50:00 DIS Outpatient JIGAR RAE DO [facility] WSo LOWER BACK/PELVIC PAIN [id number] 09/22/2012 11:44:00 09/22/2012 23:59:59 CLS Outpatient COLTHARP DO, MICHAEL A [facility] QUICK RASH [id number] 04/30/2017 09:06:00 Document Registration [id number] 04/30/2017 09:06:00 Document Registration [id number] 04/30/2017 09:06:00 Document Registration [id number] 04/30/2017 09:06:00 Document Registration [id number] 04/30/2017 09:06:00 Document Registration [id number] 04/30/2017 08:42:00 Document Registration [id number] 04/30/2017 08:42:00 Document Registration [id number] 04/30/2017 08:42:00 Document Registration [id number] 04/30/2017 08:42:00 Document Registration [id number] 04/30/2017 08:42:00 Document Registration [id number] 04/30/2017 08:42:00 Document Registration [id number] 04/30/2017 08:42:00 Document Registration [id number] 04/30/2017 08:42:00 Document Registration [id number] 04/30/2017 08:42:00 Document Registration [id number] 04/30/2017 08:42:00 Document Registration [id number] 04/30/2017 08:42:00 Document Registration [id number] 04/30/2017 08:42:00 Document Registration [id number] 04/30/2017 08:42:00 Document Registration [id number] 04/30/2017 08:42:00 Document Registration [id number] 04/30/2017 08:42:00 Document Registration [id number] 04/30/2017 08:42:00 Document Registration [id number] 04/30/2017 08:42:00 Document Registration [id number] 04/30/2017 08:42:00 Document Registration [id number] 04/30/2017 08:42:00 Document Registration [id number] 04/30/2017 08:42:00 Document Registration [id number] 04/30/2017 08:42:00 Document Registration [id number] 07/11/2016 15:20:00 Document Registration [id number] 07/29/2012 20:02:00 Document Registration [id number] 05/03/2012 19:35:00 Document Registration [id number] 04/25/2012 10:47:00 Document Registration [id number] 11/04/2011 08:20:00 Document Registration [id number] 09/05/2011 16:34:00 Document Registration [id number] 11/13/2007 04:38:00 Document Registration [id number] 11/09/2007 07:43:00 Document Registration [id number] 11/08/2007 13:05:00 Document Registration [id number] 12/16/2017 10:20:00 12/16/2017 23:59:59 CLS Outpatient LOREGENARO [facility] [id number] 05/28/2017 09:00:00 Document Registration [id number] 03/11/2014 11:34:00 03/11/2014 23:59:59 CLS Outpatient GUDELIA COLES MD [id number] 10/12/2013 14:34:00 10/12/2013 23:59:59 CLS Outpatient FELIZ MARIANO APRN [id number] 07/13/2013 16:02:00 07/13/2013 23:59:59 CLS Outpatient LOU EASON APRN [id number] 06/09/2013 09:53:00 06/09/2013 23:59:59 CLS Outpatient KARI BOWERS APRN [id number] 10/23/2012 11:38:00 10/23/2012 23:59:59 CLS Outpatient KASSY MCCLURE MD, PAUL Ch [id number] 04/27/2012 14:48:00 04/27/2012 23:59:59 [place] [id number] 04/18/2012 09:13:00 04/18/2012 23:59:59 CLS Outpatient [id number] 06/16/2016 19:05:00 Document Registration
[2018-01-18] MEDS ORDERED: LACTATED RINGERS 1,000 ML IV ONE (04:36)
[2018-01-18] MEDS ORDERED: PANTOPRAZOLE 40 MG (PROTONIX) VIAL IV STA (04:36)
[2018-01-18] MEDS ORDERED: HYOSCYAMINE 0.125 MG (LEVSIN) TAB SL ONE (04:45)
[2018-01-18] MEDS ORDERED: ONDANSETRON 4 MG/2 ML (SDV) Z0FRAN IVP ONE (04:45)
--- NOTE | 2018-01-18 04:46 | ED Abdominal Pain ---
General Chief Complaint: Abdominal/GI Problems Stated Complaint: ABD PAIN Source of Information: Patient History of Present Illness Date Seen by Provider: Jan 18, 2018 Time Seen by Provider: 04:20 Initial Comments PT ARRIVES VIA POV FROM HOME C/O "GLARE UP OF GASTRITIS" C/O SEVERE EPIGASTRIC PAIN SINCE 2300 TONIGHT--STATES IT WOKE HER UP, AND HAS BEEN SEVERE SINCE 0200 + NAUSEA, VOMITED X 2 NO DIARRHEA, HAS HAD A NORMAL BM TODAY NO URINARY SYMPTOMS NO FEVER HAS NOT TAKEN ANYTHING FOR PAIN LAST ATE AT 2100 TONIGHT--CARROTS AND GRAPES PT WAS AT [employer] ALL DAY TODAY--CLAIMS ONLY THING DIFFERENT THAT SHE ATE WAS [place] PT STATES SHE TAKES ESOMEPRAZOLE FOR THIS PROBLEM AND DENIES ANY MISSED DOSES OF MEDICATIONS LAST EGD 09/29/17--DONE BY DR. SERRANO---+ GASTRITIS, DUODENITIS, LOPEZ'S ESOPHAGUS, QUESTIONABLE HEALING ULCERS PT LATER STATES SHE HAS ALSO BEEN PRESCRIBED CARAFATE, BUT HAS NOT TAKEN IT FOR AT LEAST 4 MONTHS--DIDN'T THINK SHE NEEDED IT ANYMORE. LMP--COUPLE OF DAYS AGO, LASTED ONLY 1 DAY, NORMAL--ON OCP'S AND DENIES MISSED DOSES PCP: [facility], VENDOR REPRESENTATIVES CHRIS SCHWAB AND VENDOR REPRESENTATIVES LORE Allergies and Home Medications Allergies Coded Allergies: NKANo Known Allergies (Verified Allergy, Unknown, 01/18/18) Home Medications Dicyclomine HCl 10 Mg Capsule, 10 MG PO TID PRN for DISCOMFORT, (Reported) Dicyclomine HCl 20 Mg Tablet, 20 MG PO Q6H Prescribed by: ORI EUGENE on 01/18/18622 Hyoscyamine Sulfate 0.125 Mg Tab.subl, 1-2 TAB SL Q4H Prescribed by: ORI EUGENE on 01/18/18622 Lovastatin 20 Mg Tablet, 10 MG PO DAILY, (Reported) TAKES 1/2 (20MG) TABLET Norgestimate-Ethinyl Estradiol 1 Each Tablet, 1 TAB PO DAILY, (Reported) Ondansetron 8 Mg Tab.rapdis, 8 MG PO Q4H Prescribed by: ORI EUGENE on 01/18/18622 Pantoprazole Sodium 40 Mg Tablet.dr, 40 MG PO DAILY, (Reported) Promethazine HCl 25 Mg Supp.rect, 25 MG RC Q4H Prescribed by: ORI EUGENE on 01/18/18 0623 Spironolactone 100 Mg Tablet, 100 MG PO BID, (Reported) Sucralfate 1 Gm Tablet, 1 GM PO ACHS, (Reported) Patient Home Medication List Home Medication List Reviewed: Yes Review of Systems Review of Systems Constitutional: no symptoms reported Respiratory: No Symptoms Reported Cardiovascular: No Symptoms Reported Gastrointestinal: See HPI, Abdominal Pain; Denies Constipated, Denies Diarrhea ; Nausea, Vomiting Genitourinary: No Symptoms Reported Musculoskeletal: no symptoms reported Skin: no symptoms reported Psychiatric/Neurological: No Symptoms Reported Endocrine: No Symptoms Reported Hematologic/Lymphatic: No Symptoms Reported Past Iybzcwe-Dgmlyz-Ahpjth Hx Patient Social History Alcohol Use: Occasionally Uses (HISTORY OF MODERATE TO HEAVY USE, NOW ONLY OCCASIONAL USE--DENIES USE FOR OVER A MONTH, PER PT ON 01/18/18) Recreational Drug Use: Yes (THC TEEN) Smoking Status: Current Everyday Smoker (2- PPD) Type Used: Cigarettes Recent Foreign Travel: No Contact w/Someone Who Travel: No Recent Hopitalizations: No Immunizations Up To Date Tetanus Booster (TDap): Unknown Date of Influenza Vaccine: Feb 17, 2012 Seasonal Allergies Seasonal Allergies: No Past Medical History Surgeries: Yes (DENTAL, EGD'S/COLONOSCOPIES; URETHRAL DILATIONS) Abdominal Respiratory: No Cardiac: Yes High Cholesterol, Hypertension Neurological: No Reproductive Disorders: Yes ("LOW TESTOSTERONE" ) Female Reproductive Disorders: Denies, Polycystic Ovarian Dis Sexually Transmitted Disease: No HIV/AIDS: No Genitourinary: No Gastrointestinal: Yes (CHRONIC GASTRITIS) Gastroesophageal Reflux Musculoskeletal: Yes (BACK PAIN DUE TO WEIGHT) Chronic Back Pain Endocrine: Yes (OBESITY) HEENT: No Cancer: No Psychosocial: Yes (MILD ANXIETY) Anxiety Integumentary: No Blood Disorders: No Adverse Reaction/Blood Tranf: No Family Medical History Alzheimer's disease MATERNAL GRANDMOTHER Arthritis MATERNAL GRANDMOTHER Diabetes mellitus MATERNAL GRANDMOTHER FH: lung cancer 19 FATHER FH: sleep apnea MATERNAL GRANDMOTHER FH: stroke MATERNAL GRANDMOTHER FH: thyroid cancer 19 MOTHER Thyroid disease 19 MOTHER Cancer Physical Exam Vital Signs Vital Signs - First Documented 01/18/18 04:20 Temp 97.5 Pulse 71 Resp 26 B/P (MAP) 145/100 (115) Pulse Ox 100 Capillary Refill : Height/Weight/BMI Height: 5'7.00" Weight: 330lbs. 0.0oz. 149.099401rm; 51.7 BMI Method:Stated General Appearance: obese (MORBIDLY), other (ANXIOUS, HYPERVENTILATING, PACING , WAILING/MOANING) HEENT: PERRL/EOMI, other (EDENTULOUS) Respiratory: normal breath sounds, no respiratory distress, no accessory muscle use Cardiovascular: regular rate, rhythm, no murmur Gastrointestinal: normal bowel sounds, soft, no organomegaly, no pulsatile mass ; No distended, No guarding, No rebound; tenderness (EPIGASTRIC) Extremities: normal inspection, normal capillary refill Back: no CVA tenderness Neurologic/Psychiatric: attendant honor bar II-XII nml as tested, no motor/sensory deficits, alert, oriented x 3 Skin: normal color, warm/dry, tattoos/piercings (TATTOOS) Progress/Results/Core Measures Results/Orders Lab Results Laboratory Tests Test 01/18/18 04:31 01/18/18 04:58 Range/Units Urine Color YELLOW Urine Clarity SLIGHTLY CLOUDY Urine pH 7 5-9 Urine Specific [place] 1.010 L 1.016-1.022 Urine Protein NEGATIVE NEGATIVE Urine Glucose (UA) NEGATIVE NEGATIVE Urine Ketones NEGATIVE NEGATIVE Urine Nitrite NEGATIVE NEGATIVE Urine Bilirubin NEGATIVE NEGATIVE Urine Urobilinogen NORMAL NORMAL MG/DL Urine Leukocyte Esterase 1+ H NEGATIVE Urine RBC (Auto) NEGATIVE NEGATIVE Urine RBC NONE /HPF Urine WBC RARE /HPF Urine Squamous Epithelial Cells 10-25 H /HPF Urine Crystals PRESENT H /LPF Urine Amorphous Sediment FEW CARLY PHOSPHATE H /LPF Urine Bacteria MODERATE H /HPF Urine Casts NONE /LPF Urine Mucus SMALL H /LPF Urine Culture Indicated YES Urine Opiates Screen NEGATIVE NEGATIVE Urine Oxycodone Screen NEGATIVE NEGATIVE Urine Methadone Screen NEGATIVE NEGATIVE Urine Propoxyphene Screen NEGATIVE NEGATIVE Urine Barbiturates Screen NEGATIVE NEGATIVE Ur Tricyclic Antidepressants Screen NEGATIVE NEGATIVE Urine Phencyclidine Screen NEGATIVE NEGATIVE Urine Amphetamines Screen NEGATIVE NEGATIVE Urine Methamphetamines Screen NEGATIVE NEGATIVE Urine Benzodiazepines Screen NEGATIVE NEGATIVE Urine Cocaine Screen NEGATIVE NEGATIVE Urine Cannabinoids Screen POSITIVE H NEGATIVE White Blood Count 7.9 4.3-11.0 10^3/uL Red Blood Count 4.36 4.35-5.85 10^6/uL Hemoglobin 13.3 11.5-16.0 G/DL Hematocrit 39 35-52 % Mean Corpuscular Volume 90 80-99 FL Mean Corpuscular Hemoglobin 31 25-34 PG Mean Corpuscular Hemoglobin Concent 34 32-36 G/DL Red Cell Distribution Width 12.9 10.0-14.5 % Platelet Count 235 130-400 10^3/uL Mean Platelet Volume 9.7 7.4-10.4 FL Neutrophils (%) (Auto) 42 42-75 % Lymphocytes (%) (Auto) 44 12-44 % Monocytes (%) (Auto) 11 0-12 % Eosinophils (%) (Auto) 4 0-10 % Basophils (%) (Auto) 0 0-10 % Neutrophils # (Auto) 3.3 1.8-7.8 X 10^3 Lymphocytes # (Auto) 3.4 1.0-4.0 X 10^3 Monocytes # (Auto) 0.8 0.0-1.0 X 10^3 Eosinophils # (Auto) 0.3 0.0-0.3 10^3/uL Basophils # (Auto) 0.0 0.0-0.1 10^3/uL Sodium Level 139 135-145 MMOL/L Potassium Level 4.1 3.6-5.0 MMOL/L Chloride Level 105 98-107 MMOL/L Carbon Dioxide Level 21 21-32 MMOL/L Anion Gap 13 5-14 MMOL/L Blood Urea Nitrogen 12 7-18 MG/DL Creatinine 0.75 0.60-1.30 MG/DL Estimat Glomerular Filtration Rate > 60 BUN/Creatinine Ratio 16 Glucose Level 106 H 70-105 MG/DL Calcium Level 9.4 8.5-10.1 MG/DL Corrected Calcium 9.3 8.5-10.1 MG/DL Total Bilirubin 0.2 0.1-1.0 MG/DL Aspartate Amino Transf (AST/SGOT) 24 5-34 U/L Alanine Aminotransferase (ALT/SGPT) 35 0-55 U/L Alkaline Phosphatase 71 40-136 U/L Total Protein 7.5 6.4-8.2 GM/DL Albumin 4.1 3.2-4.5 GM/DL Amylase Level 48 25-125 U/L Lipase 68 8-78 U/L Serum Alcohol < 10 <10 MG/DL My Orders Orders - ROI EUGENE DO Amylase (01/18/18 04:21) Cbc With Automated Diff (01/18/18 04:21) Comprehensive Metabolic Panel (01/18/18 04:21) Lipase (01/18/18 04:21) Ua Culture If Indicated (01/18/18 04:21) Saline Lock/Iv-Start (01/18/18 04:21) Urine Bedside (01/18/18 04:21) Saline Lock/Iv-Start (01/18/18 04:36) Lactated Ringers (Lr 1000 Ml Iv Solution (01/18/18 04:36) Ondansetron Injection (Zofran Injectio (01/18/18 04:45) Hyoscyamine Sl Tablet (Levsin Sl Tablet) (01/18/18 04:45) Pantoprazole Injection (Protonix Injecti (01/18/18 04:36) Alcohol (01/18/18 04:40) Drug Screen Stat (Urine) (01/18/18 04:40) Ondansetron Oral Dissolve Tab (Zofran (01/18/18 05:00) Ketorolac Injection (Toradol Injection) (01/18/18 05:00) Dicyclomine Injection (Bentyl Injection) (01/18/18 09:00) Dicyclomine Injection (Bentyl Injection) (01/18/18 05:05) Urine Culture (01/18/18 04:31) Ct Abdomen/Pelvis Wo (01/18/18 05:27) Acute Abd Series (01/18/18 05:27) Diphenhydramine Injection (Benadryl Inje (01/18/18 05:35) Promethazine Injection (Phenergan Injec (01/18/18 05:35) Medications Given in ED Current Medications Medications Dose Ordered Sig/Moises Route Start Time Stop Time Status Last Admin Dose Admin Dicyclomine HCl 20 mg STK-MED ONCE IM 01/18/18 05:05 01/18/18 05:09 DC 01/18/18 05:16 20 MG Diphenhydramine HCl 50 mg STK-MED ONCE .ROUTE 01/18/18 05:35 01/18/18 05:39 DC 01/18/18 05:41 25 MG Hyoscyamine Sulfate 0.25 mg ONCE ONCE SL 01/18/18 04:45 01/18/18 04:46 DC 01/18/18 05:15 0.25 MG Ketorolac Tromethamine 60 mg ONCE ONCE IM 01/18/18 05:00 01/18/18 05:01 DC 01/18/18 05:15 60 MG Ondansetron HCl 8 mg ONCE ONCE PO 01/18/18 05:00 01/18/18 05:01 DC 01/18/18 05:14 8 MG Promethazine HCl 25 mg STK-MED ONCE .ROUTE 01/18/18 05:35 01/18/18 05:39 DC 01/18/18 05:42 25 MG Vital Signs/I&O 01/18/18 04:20 Temp 97.5 Pulse 71 Resp 26 B/P (MAP) 145/100 (115) Pulse Ox 100 Progress Progress Note : Progress Note ALL SYMPTOMS RESOLVED WITH MEDICATIONS PT SMILING, ABLE TO LAY DOWN AND RESTED QUIETLY FOR REMAINDER OF ER STAY Diagnostic Imaging Comments ACUTE ABDOMEN XRAYS--NO ACUTE PROCESS, PENDING RADIOLOGIST REVIEW CT ABDOMEN/PELVIS--GALLBLADDER HYDROPS, PRESUMPTIVE EVIDENCE FOR CALCULUS WITHOUT EVIDENCE OF CHOLEDOCHOLITHIASIS, RIGHT RENAL CYST, LEFT ADRENAL ADENOMA- -PER [facility] VIA FAX @ [phone] Reviewed: Reviewed by Me Departure Impression Primary Impression: Epigastric abdominal pain Additional Impressions: Hx of gastritis Biliary colic Disposition: HOME, SELF-CARE Condition: Improved Departure-Patient Inst. Referrals: [facility] [place] Primary Care Physician JODY SERRANO DO Patient Instructions: Acute Abdomen (Belly Pain), Adult (DC), Gastritis (DC), POSS GALLSTONE-W/BILIARY COLIC Add. Discharge Instructions: CLEAR LIQUIDS--WATER, BROTH, JELLO, GATORADE NO FOOD UNTIL YOU ARE RECHECKED BY CONTINUE ALL OF YOUR PRESCRIBED MEDICATIONS, INCLUDING CARAFATE AND ESOMEPRAZOLE FOLLOW UP WITH DR. SERRANO THIS WEEK FOR FURTHER CARE RETURN TO ER IF WORSE All discharge instructions reviewed with patient and/or family. Voiced understanding. Scripts Promethazine HCl (Phenergan) 25 Mg Supp.rect 25 MG RC Q4H for Nausea/Vomiting, #10 SUPP.RECT Prov: ORI EUGENE DO 01/18/18 Dicyclomine HCl (Dicyclomine HCl) 20 Mg Tablet 20 MG PO Q6H for Abdominal Pain, #20 TAB Prov: ORI EUGENE DO 01/18/18 Hyoscyamine Sulfate (Levsin-Sl) 0.125 Mg Tab.subl 1-2 TAB SL Q4H for Abdominal Pain, #15 TAB Prov: ORI EUGENE DO 01/18/18 Ondansetron (Zofran Odt) 8 Mg Tab.rapdis 8 MG PO Q4H for Nausea/Vomiting, #14 TAB Prov: ORI EUGENE DO 01/18/18 ORI EUGENE DO Jan 18, 2018 04:46
[2018-01-18] MEDS ORDERED: ONDANSETRON 4 MG (ZOFRAN) ORAL DISSOLVE TAB PO ONE (05:00)
[2018-01-18] MEDS ORDERED: KETOROLAC 60 MG/2 ML VIAL IM ONE (05:00)
[2018-01-18] MEDS ORDERED: DICYCLOMINE 10 MG/ML (BENTYL) 2 ML AMP IM ONE ×2 (05:05→09:00)
[2018-01-18 05:07] LABS: BILIRUBIN,URINE NEGATIVE (NEGATIVE); COLOR,URINE YELLOW; GLUCOSE, URINE (UA) NEGATIVE (NEGATIVE); KETONES,URINE NEGATIVE (NEGATIVE); LEUKOCYTE ESTERASE ,URINE 1+ (NEGATIVE); NITRITE,URINE NEGATIVE (NEGATIVE); PH,URINE 7 (5-9); PROTEIN,URINE NEGATIVE (NEGATIVE); UROBILINOGEN,URINE NORMAL (NORMAL)
[2018-01-18 05:11] LABS: BASOPHILS % (AUTO) 0 % (0-10); EOSINOPHILS # (AUTO) 0.3 10^3/uL (0.0-0.3); EOSINOPHILS % (AUTO) 4 % (0-10); HEMATOCRIT 39 % (35-52); HEMOGLOBIN 13.3 G/DL (11.5-16.0); LYMPHOCYTES # (AUTO) 3.4 X 10^3 (1.0-4.0); LYMPHOCYTES % (AUTO) 44 % (12-44); MEAN CORPUSCULAR HEMOGLOBIN 31 PG (25-34); MEAN CORPUSCULAR HGB CONC 34 G/DL (32-36); MEAN CORPUSCULAR VOLUME 90 FL (80-99); MEAN PLATELET VOLUME 9.7 FL (7.4-10.4); MONOCYTES # (AUTO) 0.8 X 10^3 (0.0-1.0); MONOCYTES % (AUTO) 11 % (0-12); NEUTROPHILS # (AUTO) 3.3 X 10^3 (1.8-7.8); NEUTROPHILS % (AUTO) 42 % (42-75); PLATELET COUNT 235 10^3/uL (130-400); RED BLOOD COUNT 4.36 10^6/uL (4.35-5.85); RED CELL DISTRIBUTION WIDTH 12.9 % (10.0-14.5); WHITE BLOOD COUNT 7.9 10^3/uL (4.3-11.0)
[2018-01-18 05:13] LABS: CLARITY,URINE SLIGHTLY CLOUDY
[2018-01-18 05:15] LABS: AMORPHOUS SEDIMENT,UR FEW AMOR PHOSPHATE /LPF; BACTERIA,URINE MODERATE /HPF; WBC,URINE RARE /HPF
[2018-01-18 05:18] LABS: AMPHETAMINE SCREEN, URINE NEGATIVE (NEGATIVE); BARBITURATE SCREEN URINE NEGATIVE (NEGATIVE); BENZODIAZEPINES SCREEN URINE NEGATIVE (NEGATIVE); CANNABINOID SCREEN, URINE POSITIVE (NEGATIVE); COCAINE SCREEN URINE NEGATIVE (NEGATIVE); METHADONE STAT NEGATIVE (NEGATIVE); METHAMPHETAMINE SCREEN URINE S NEGATIVE (NEGATIVE); OPIATE SCREEN URINE NEGATIVE (NEGATIVE); OXYCODONE STAT NEGATIVE (NEGATIVE); PROPOXYPHENE STAT NEGATIVE (NEGATIVE); TRICYCLIC ANTIDEPRESSANTS SCRE NEGATIVE (NEGATIVE)
[2018-01-18] MEDS ORDERED: diphenhydrAMINE 50 MG/ML INJ (BENADRYL) ONE (05:35)
[2018-01-18] MEDS ORDERED: PROMETHAZINE INJ 25 MG/ML (PHENERGAN) AMP ONE (05:35)
[2018-01-18 05:45] LABS: BUN/CREATININE RATIO 16; CALCIUM 9.4 MG/DL (8.5-10.1); CARBON DIOXIDE 21 MMOL/L (21-32); CHLORIDE 105 MMOL/L (98-107); CREATININE SERUM 0.75 MG/DL (0.60-1.30); GFR ESTIMATED > 60; GLUCOSE 106 MG/DL (70-105); POTASSIUM 4.1 MMOL/L (3.6-5.0); SODIUM 139 MMOL/L (135-145)
[2018-01-18 05:46] LABS: ALANINE AMINOTRANSFERASE 35 U/L (0-55); ALBUMIN 4.1 GM/DL (3.2-4.5); ALKALINE PHOSPHATASE 71 U/L (40-136); AMYLASE 48 U/L (25-125); BILIRUBIN,TOTAL 0.2 MG/DL (0.1-1.0); TOTAL PROTEIN 7.5 GM/DL (6.4-8.2)
[2018-01-18 05:52] LABS: LIPASE 68 U/L (8-78)
--- NOTE | 2018-01-18 06:18 | Diagnostic Imaging Report ---
INDICATION: Abdominal pain for years. TECHNIQUE: Single view chest with supine and upright radiographs of the abdomen. CORRELATION STUDY: Chest 09/29/2017 FINDINGS: Frontal radiograph of the chest demonstrates no acute abnormality. Mild severity fecal retention. A few air-fluid levels are present. No abnormally dilated loops of bowel or findings to suggest obstruction. No definitive pathologic intra-abdominal calcifications. IMPRESSION: 1. Negative for acute cardiopulmonary abnormality. 2. Unremarkable appearing bowel gas pattern. Dictated by: Dictated on workstation # [id number]
[2018-01-18] MEDS ORDERED: PROM25SU43 RC (06:23)
[2018-01-18] MEDS ORDERED: ONDA8TAB9 PO (06:23)
[2018-01-18] MEDS ORDERED: HYOS0.1283 SL (06:23)
[2018-01-18] MEDS ORDERED: DICY20TA10 PO (06:23)
[2018-01-18 06:32] VITALS: BP 116/75
--- NOTE | 2018-01-18 07:00 | Diagnostic Imaging Report ---
PROCEDURE: CT abdomen and pelvis without contrast. TECHNIQUE: Multiple contiguous axial images were obtained through the abdomen and pelvis without the use of intravenous contrast. INDICATION: Abdominal pain for years. History of gastritis. CORRELATION STUDY: 12/25/2015 FINDINGS: LOWER THORAX: Clear. LIVER: Diffuse low-attenuation consistent with hepatic steatosis. GALLBLADDER: Hydropic measuring 10 cm. No associated biliary dilatation. SPLEEN: Unremarkable. PANCREAS: Unremarkable. ADRENAL GLANDS: 16 mm nodule left adrenal gland appears generally stable. Hounsfield unit 8.9. KIDNEYS: 20 x 15 mm exophytic nodule inferior pole right kidney is again demonstrated. Fairly low Hounsfield unit favoring probable cyst. A 7 mm hyperdense nodule just adjacent to the inferior pole. Kidneys and collecting system otherwise unremarkable. No hydronephrosis. ABDOMINAL AORTA: Unremarkable, nonaneurysmal. GASTROINTESTINAL TRACT: Mild severity fecal retention. Normal appendix. No suggestion for obstruction or inflammation. URINARY BLADDER: Decompressed. REPRODUCTIVE: Uterus unremarkable. Some fullness of the bilateral adnexa likely associated with the ovaries. OSSEOUS STRUCTURES: Some asymmetric sclerosis of the left SI joints and, to a lesser degree, the inferior right SI joint. OTHER: None. IMPRESSION: 1. Hydropic gallbladder. No definitive evidence for shadowing gallstones are otherwise findings that reflect of acute cholecystitis. Clinical correlation recommended. 2. Very slight interval increase in size of a right renal cyst. Additional hyperdense nodule just adjacent to this area. This is nonspecific. Consideration for nonemergent followup renal ultrasound. (Not described on preliminary interpretation.) 3. Changes of hepatic steatosis. Discrepancy report faxed to [facility] at 6:57 a.m. 01/18/2018/christine Dictated by: Dictated on workstation # [id number]
== END 2018-01-18 06:32 | disposition home or self-care (01) ==
LOC: EDUNIT# 04:08 → ER 04:10
DX: K80.50 Calculus of bile duct without cholangitis or cholecystitis without obstruction (principal); R10.13 Epigastric pain; E78.00 Pure hypercholesterolemia, unspecified; I10 Essential (primary) hypertension; K21.9 Gastro-esophageal reflux disease without esophagitis; E66.9 Obesity, unspecified; F41.9 Anxiety disorder, unspecified; F17.210 Nicotine dependence, cigarettes, uncomplicated; Z68.43 Body mass index [BMI] 50.0-59.9, adult; Z87.448 Personal history of other diseases of urinary system; Z80.1 Family history of malignant neoplasm of trachea, bronchus and lung; Z85.850 Personal history of malignant neoplasm of thyroid; Z87.19 Personal history of other diseases of the digestive system
CPT/HCPCS: 36415; 74022; 74176; 80053; 80306; 80320; 81000; 82150; 83690; 84703; 85025; 87077; 87088; 96372

== ENCOUNTER 2018-02-16 02:56 | Emergency (ER) | payer SELFPAY ==
[~2018-02-16] VITALS: Ht 170.2 cm; Wt 136.1 kg
[~2018-02-16 02:56] MED LIST changes: +DICY20TA10 PO; +HYOS0.1283 SL; +ONDA8TAB9 PO; +PROM25SU43 RC
--- OUTSIDE RECORDS SUMMARY | 2018-02-16 03:05 | XMS REPORT | Continuity of Care Document ---
Author Author [facility] Organization [facility] Address Unknown Phone Unavailable Allergies Active Description Code Type Severity Reaction Onset Reported/Identified Relationship to Patient Clinical Status Yes ACETAMINOPHEN ACETAMINOPHEN Mild CORICIDIN CAUSE 09/02/2005 Yes CHLORPHENAMINE CHLORPHENAMINE Mild CORICIDIN CAUSE 09/02/2005 Yes No Known Drug Allergies [id number] Drug Allergy Unknown N/A 11/13/2007 Yes NKANo Known Allergies NKA Miscellaneous Allergy Unknown N/A 01/18/2018 Medications There is no data. Problems Date [...] 388.30 ringing in the ears (tinnitus) 11/27/2012 IJGAR RAE DO Ot 644.03 THRT BHAKTI LABOR-ANTEPART [...] 724.2 LUMBAGO/ LOW BACK PAIN 07/13/2013 GUDELIA OCLES MD 521.00 UNSPECIFIED DENTAL CARIES 07/13/2013 GUEDLIA COLES MD 724.2 LUMBAGO/ LOW BACK PAIN 10/12/2013 FELIZ MARIANO APRN R 110.5 TINEA CORPORIS 10/12/2013 GUDELIA COLES MD 110.5 TINEA CORPORIS 03/11/2014 GUDELIA COLES MD V15.06 PERSONAL HISTORY OF ALLERGY TO INSECTS AND ARACHNIDS 04/04/2014 Ot 784.0 04/04/2014 ED EDMONDSON, TUCKER Davenport Ot 521.00 UNSPEC DENTAL CARIES 04/04/2014 TUCKER WARD MD Ot 525.9 DENTAL DISORDER NOS 05/06/2014 JUSTIN MCLAIN DEALER CARD ROOM Ot 634.90 SPON ABORT UNCOMPL-UNSP 05/06/2014 JUSTIN MCLAIN DEALER CARD ROOM Ot 649.53 SPOTTING COMP , ANTEPARTUM COND 05/22/2014 Ot 784.0 05/22/2014 JUSTIN MCLAIN DEALER CARD ROOM Ot 521.00 UNSPEC DENTAL CARIES 05/22/2014 JUSTIN MCLAIN DEALER CARD ROOM Ot 525.9 DENTAL DISORDER NOS 05/23/2014 OMEGA [...] DELMAN DO, JODY B Ot Z79.899 OTHER INTERMEDIATE (CURRENT) DRUG THERAPY 10/01/2017 DELMAN DO, JODY B Ot F17.210 NICOTINE DEPENDENCE, CIGARETTES, UNCOMPL 10/01/2017 DELMAN DO, JODY B Ot I10 ESSENTIAL (PRIMARY) HYPERTENSION 10/01/2017 DELMAN DO, JODY B Ot 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 10/01/2017 DELMAN DO, OJDY B Ot K29.70 GASTRITIS, UNSPECIFIED, WITHOUT BLEEDING 10/01/2017 DELMAN DO, JODY B Ot K29.80 DUODENITIS WITHOUT BLEEDING 10/01/2017 DELMAN DO, JODY B Ot Z79.899 OTHER INTERMEDIATE (CURRENT) DRUG THERAPY 10/02/2017 DELMAN DO, JODY [...] DELMAN DO, JODY B Ot Z79.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 01/20/2018 ORI EUGENE DO Ot E66.9 OBESITY, UNSPECIFIED 01/20/2018 JABIER ORI Trammell Ot E78.00 PURE HYPERCHOLESTEROLEMIA, UNSPECIFIED 01/20/2018 JABIER ORI Trammell Ot F17.210 NICOTINE DEPENDENCE, CIGARETTES, UNCOMPL 01/20/2018 JABIER ORI Trammell Ot F41.9 ANXIETY DISORDER, UNSPECIFIED 01/20/2018 JABIER ORI Trammell Ot I10 ESSENTIAL (PRIMARY) HYPERTENSION 01/20/2018 MAKINEN ORI Trammell Ot K21.9 GASTRO-ESOPHAGEAL REFLUX DISEASE WITHOUT 01/20/2018 JABIER ORI Trammell Ot K80.50 CALCULUS OF BILE DUCT W/O CHOLANGITIS OR 01/20/2018 JABIER ORI Trammell Ot R10.13 EPIGASTRIC PAIN 01/20/2018 JABIER ORI Trammell Ot Z68.43 BODY MASS INDEX (BMI) 50-59.9 , ADULT 01/20/2018 JABIER ORI Trammell Ot Z80.1 FAMILY HISTORY OF MALIG NEOPLASM OF TRAC 01/20/2018 JABIER ORI Trammell Ot Z85.850 PERSONAL HISTORY OF MALIGNANT NEOPLASM O 01/20/2018 JABIER ORI Trammell Ot Z87.19 PERSONAL HISTORY OF OTHER DISEASES OF TH 01/20/2018 JABIER MENDOZA ORI Trammell Ot Z87.448 PERSONAL HISTORY OF OTHER DISEASES OF UR Procedures Code Description Performed By Performed On 73.59 MANUAL ASSIST DELIV NEC 11/13/2007 66630 URINE TEST (IN- HOUSE) 04/18/2012 96136 URINE TEST (IN- HOUSE) 04/18/2012 65267 ROUTINE VENIPUNCTURE 04/27/2012 58243 HCG QUANTITATIVE 04/28/2012 73.6 EPISIOTOMY 02/27/2013 Results [...] culture - 02/15/17 04:14 Bacterial urine culture [id number] NRG COLONY COUNT <10,000 NRG FREE TEXT [...] Complete urinalysis with reflex to culture - 01/18/18 04:31 Urine color determination YELLOW NRG Urine clarity determination SLIGHTLY CLOUDY NRG Urine pH measurement by test strip 7 5-9 Specific gravity of urine by test strip 1.010 1.016- 1.022 Urine protein assay by test strip, semi-quantitative NEGATIVE NEGATIVE Urine glucose detection by automated test strip NEGATIVE NEGATIVE Erythrocytes detection in urine sediment by light microscopy NEGATIVE NEGATIVE Urine ketones detection by automated test strip NEGATIVE NEGATIVE Urine nitrite detection by test strip NEGATIVE NEGATIVE Urine total bilirubin detection by test strip NEGATIVE NEGATIVE Urine urobilinogen measurement by automated test strip (mass/volume) NORMAL NORMAL Urine leukocyte esterase detection by dipstick 1+ NEGATIVE Automated urine sediment erythrocyte count by microscopy (number/high power field) NONE NRG Automated urine sediment leukocyte count by microscopy (number/high power field ) RARE NRG Bacteria detection in urine sediment by light microscopy MODERATE NRG Squamous epithelial cells detection in urine sediment by light microscopy 10-25 NRG Crystals detection in urine sediment by light microscopy PRESENT NRG Casts detection in urine sediment by light microscopy NONE NRG Mucus detection in urine sediment by light microscopy SMALL NRG Complete urinalysis with reflex to culture YES NRG Amorphous sediment detection in urine sediment by light microscopy FEW CARLY PHOSPHATE NRG Urine drug screening test - 01/18/18 04:31 Urine phencyclidine detection by screening method NEGATIVE NEGATIVE Urine benzodiazepines detection by screening method NEGATIVE NEGATIVE Urine cocaine detection NEGATIVE NEGATIVE Urine amphetamines detection by screening method NEGATIVE NEGATIVE Urine methamphetamine detection by screening method NEGATIVE NEGATIVE Urine cannabinoids detection by screening method POSITIVE NEGATIVE Urine opiates detection by screening method NEGATIVE NEGATIVE Urine barbiturates detection NEGATIVE NEGATIVE Screening urine tricyclic antidepressants detection NEGATIVE NEGATIVE Urine methadone detection by screening method NEGATIVE NEGATIVE Urine oxycodone detection NEGATIVE NEGATIVE Urine propoxyphene detection NEGATIVE NEGATIVE Bacterial urine culture - 01/18/18 04:31 Bacterial urine culture SEE COMMEN NRG COLONY COUNT . NRG Complete blood count (CBC) with automated white blood cell (WBC) differential - 01/18/18 04:58 Blood leukocytes automated count (number/volume) 7.9 10*3/uL 4.3-11.0 Blood erythrocytes automated count (number/volume) 4.36 10*6/uL 4.35-5.85 Venous blood hemoglobin measurement (mass/volume) 13.3 g/dL 11.5-16.0 Blood hematocrit (volume fraction) 39 % 35-52 Automated erythrocyte mean corpuscular volume 90 [foz_us] 80-99 Automated erythrocyte mean corpuscular hemoglobin (mass per erythrocyte) 31 pg 25-34 Automated erythrocyte mean corpuscular hemoglobin concentration measurement ( mass/volume) 34 g/dL 32-36 Automated erythrocyte distribution width ratio 12.9 % 10.0-14.5 Automated blood platelet count (count/volume) 235 10*3/uL 130-400 Automated blood platelet mean volume measurement 9.7 [foz_us] 7.4-10.4 Automated blood neutrophils/100 leukocytes 42 % 42-75 Automated blood lymphocytes/100 leukocytes 44 % 12-44 Blood monocytes/100 leukocytes 11 % 0-12 Automated blood eosinophils/100 leukocytes 4 % 0-10 Automated blood basophils/100 leukocytes 0 % 0-10 Blood neutrophils automated count (number/volume) 3.3 10*3 1.8-7.8 Blood lymphocytes automated count (number/volume) 3.4 10*3 1.0-4.0 Blood monocytes automated count (number/volume) 0.8 10*3 0.0-1.0 Automated eosinophil count 0.3 10*3/uL 0.0-0.3 Automated blood basophil count (count/volume) 0.0 10*3/uL 0.0-0.1 Comprehensive metabolic panel - 01/18/18 04:58 Serum or plasma sodium measurement (moles/volume) 139 mmol/L 135-145 Serum or plasma potassium measurement (moles/volume) 4.1 mmol/L 3.6-5.0 Serum or plasma chloride measurement (moles/volume) 105 mmol/L 98-107 Carbon dioxide 21 mmol/L 21-32 Serum or plasma anion gap determination (moles/volume) 13 mmol/L 5-14 Serum or plasma urea nitrogen measurement (mass/volume) 12 mg/dL 7-18 Serum or plasma creatinine measurement (mass/volume) 0.75 mg/dL 0.60-1.30 Serum or plasma urea nitrogen/creatinine mass ratio 16 NRG Serum or plasma creatinine measurement with calculation of estimated glomerular filtration rate > NRG Serum or plasma glucose measurement (mass/volume) 106 mg/dL 70-105 Serum or plasma calcium measurement (mass/volume) 9.4 mg/dL 8.5-10.1 Serum or plasma total bilirubin measurement (mass/volume) 0.2 mg/dL 0.1-1.0 Serum or plasma alkaline phosphatase measurement (enzymatic activity/volume) 71 U/L 40-136 Serum or plasma aspartate aminotransferase measurement (enzymatic activity/ volume) 24 U/L 5-34 Serum or plasma alanine aminotransferase measurement (enzymatic activity/volume ) 35 U/L 0-55 Serum or plasma protein measurement (mass/volume) 7.5 g/dL 6.4-8.2 Serum or plasma albumin measurement (mass/volume) 4.1 g/dL 3.2-4.5 CALCIUM CORRECTED 9.3 mg/dL 8.5-10.1 Serum or plasma amylase measurement (enzymatic activity/volume) - 01/18/18 04: 58 Serum or plasma amylase measurement (enzymatic activity/volume) 48 U /L 25-125 Lipase - 01/18/18 04:58 Lipase 68 U/L 8-78 Serum or plasma ethanol measurement (mass/volume) - 01/18/18 04:58 Serum or plasma ethanol measurement (mass/volume) < mg/dL <10 Encounters ACCT No. Visit Date/Time Discharge Status Pt. Type Provider Facility Loc./Unit Complaint [id number] 01/18/2018 04:10:00 01/18/2018 06:32:00 DIS Outpatient ORI EUGENE DO [facility] ER ABD PAIN [id number] 09/29/2017 03:15:00 09/29/2017 17:05:00 DIS Outpatient JODY SERRANO DO [facility] SDC EPIGASTRIC ABD PAIN [id number] 09/16/2017 03:19:00 09/16/2017 04:20:00 DIS Outpatient OMEGA SANDOVAL MD [facility] ER ABD PAIN, POSS ACID REFLUX [id number] 02/15/2017 04:00:00 02/15/2017 05:49:00 DIS Emergency TUCKER WARD MD [facility] ER VOMITING,NAUSEA, DIARRHEA [id number] 07/16/2016 07:58:00 07/16/2016 11:05:00 DIS Outpatient RANDOLPH SMITH DO [facility] ENDO GERD/LUQ ABD PAIN [id number] 07/11/2016 06:20:00 07/11/2016 15:25:00 DIS Outpatient RANDOLPH SMITH DO [facility] PREOP GERD/LUQ ABD PAIN [id number] 12/25/2015 05:20:00 12/25/2015 07:33:00 DIS Emergency ORI EUGENE DO [facility] ER ABD PAIN [id number] 06/11/2015 11:30:00 06/11/2015 23:59:59 CLS Emergency KARISHMA EDMONDSON, WEN Trammell [facility] ER DENTAL PAIN/ISSUES [id number] 05/27/2014 23:54:00 05/28/2014 01:13:00 DIS Emergency ED EDMONDSON, TUCKER Davenport [facility] ER LEFT DENTAL PAIN, PER PT NO ACCIDENT [id number] 05/23/2014 19:59:00 05/23/2014 20:43:00 DIS Emergency OMEGA SANDOVAL MD [facility] ER JAW PAIN [id number] 05/22/2014 22:38:00 05/22/2014 23:18:00 DIS Emergency JUSTIN MCLAIN APRN [facility] ER TOOTH PAIN [id number] 05/06/2014 22:03:00 05/06/2014 23:15:00 DIS Emergency JUSTIN MCLAIN APRN [facility] ER 7 WKS;BLEEDING [id number] 04/04/2014 00:33:00 04/04/2014 01:17:00 DIS Emergency ED EDMONDSON, TUCKER Davenport [facility] ER DENTAL [id number] 02/27/2013 03:47:00 02/28/2013 15:40:00 DIS Inpatient JIGAR RAE DO [facility] WS LEAKING FLUID [id number] 02/25/2013 09:22:00 02/25/2013 11:13:00 DIS Outpatient KIMBERLEE CASTILLO DO [facility] WSo C/O SPOTTING [id number] 02/16/2013 10:00:00 02/16/2013 12:15:00 DIS Outpatient JIGAR RAE DO [facility] WSo ABD PAIN [id number] 11/27/2012 17:40:00 11/27/2012 18:50:00 DIS Outpatient JIGAR RAE DO [facility] WSo LOWER BACK/PELVIC PAIN [id number] 09/22/2012 11:44:00 09/22/2012 23:59:59 CLS Outpatient COLDOROTHYARP MICHAEL MENDOZA [facility] QUICK RASH [id number] 04/30/2017 09:06:00 Document Registration [id number] 04/30/2017 09:06:00 Document Registration [id number] 04/30/2017 09:06:00 Document Registration [id number] 04/30/2017 09:06:00 Document Registration [id number] 04/30/2017 09:06:00 Document Registration [id number] 04/30/2017 08:42:00 Document Registration [id number] 04/30/2017 08:42:00 Document Registration [id number] 04/30/2017 08:42:00 Document Registration [id number] 04/30/2017 08:42:00 Document Registration [id number] 04/30/2017 08:42:00 Document Registration [id number] 04/30/2017 08:42:00 Document Registration [id number] 04/30/2017 08:42:00 Document Registration [id number] 04/30/2017 08:42:00 Document Registration [id number] 04/30/2017 08:42:00 Document Registration [id number] 04/30/2017 08:42:00 Document Registration [id number] 04/30/2017 08:42:00 Document Registration [id number] 04/30/2017 08:42:00 Document Registration [id number] 04/30/2017 08:42:00 Document Registration [id number] 04/30/2017 08:42:00 Document Registration [id number] 04/30/2017 08:42:00 Document Registration [id number] 04/30/2017 08:42:00 Document Registration [id number] 04/30/2017 08:42:00 Document Registration [id number] 04/30/2017 08:42:00 Document Registration [id number] 04/30/2017 08:42:00 Document Registration [id number] 04/30/2017 08:42:00 Document Registration [id number] 04/30/2017 08:42:00 Document Registration [id number] 07/11/2016 15:20:00 Document Registration [id number] 07/29/2012 20:02:00 Document Registration [id number] 05/03/2012 19:35:00 Document Registration [id number] 04/25/2012 10:47:00 Document Registration [id number] 11/04/2011 08:20:00 Document Registration [id number] 09/05/2011 16:34:00 Document Registration [id number] 11/13/2007 04:38:00 Document Registration [id number] 11/09/2007 07:43:00 Document Registration [id number] 11/08/2007 13:05:00 Document Registration [id number] 12/16/2017 10:20:00 12/16/2017 23:59:59 CLS Outpatient GENARO TORREZ [facility] [id number] 05/28/2017 09:00:00 Document Registration [id number] 03/11/2014 11:34:00 03/11/2014 23:59:59 CLS Outpatient GUDELIA COLES MD [id number] 10/12/2013 14:34:00 10/12/2013 23:59:59 CLS Outpatient FELIZ MARIANO APRN [id number] 07/13/2013 16:02:00 07/13/2013 23:59:59 CLS Outpatient LOU EASON APRN [id number] 06/09/2013 09:53:00 06/09/2013 23:59:59 CLS Outpatient KARI BOWERS APRN [id number] 10/23/2012 11:38:00 10/23/2012 23:59:59 CLS Outpatient PAUL ULLOA MD [id number] 04/27/2012 14:48:00 04/27/2012 23:59:59 [place] [id number] 04/18/2012 09:13:00 04/18/2012 23:59:59 CLS Outpatient [id number] 06/16/2016 19:05:00 Document Registration
[2018-02-16] MEDS ORDERED: PANTOPRAZOLE 40 MG (PROTONIX) VIAL IV STA (03:18)
[2018-02-16] MEDS ORDERED: LACTATED RINGERS 1,000 ML IV ONE (03:18)
[2018-02-16] MEDS ORDERED: KETOROLAC 30 MG/ML VIAL IVP STA (03:18)
--- NOTE | 2018-02-16 03:26 | ED Abdominal Pain ---
General Stated Complaint: ABDOMINAL PAIN Source of Information: Patient, Old Records History of Present Illness Date Seen by Provider: Feb 16, 2018 Time Seen by Provider: 03:15 Initial Comments PT ARRIVES VIA EMS FROM HOME C/O UPPER ABDOMINAL PAIN AND SEVERE EPIGASTRIC PAIN X 1 HOUR--WAS SLEEPING AND PAIN WOKE HER UP C/O NAUSEA, NO VOMITING HAD NORMAL BM YESTERDAY MORNING NO URINARY SYMPTOMS NO FEVER THIS IS A CHRONIC PROBLEM STATES SHE IS "SUPPOSED TO HAVE GOTTEN A REFERRAL TO SEE A GALLBLADDER SURGEON" BUT HAS NOT FOLLOWED THROUGH WITH THAT. HAS HAD MULTIPLE VISITS FOR THIS PROBLEM LAST VISIT WAS 01/18/18 AND HAD LAB, CT SCAN, AND WAS REFERRED TO DR. SERRANO, CT SCAN SHOWED EVIDENCE OF GALLBLADDER DISEASE--PT NEVER ATTEMPTED TO CONTACT HIM PT STATES SHE "NEVER EVER EATS BREAKFAST OR LUNCH AND SHE NEVER SNACKS AT ANY TIME" STATES SHE HAD A CHEESEBURGER AND HAD A FEW FRIES TONIGHT FOR DINNER AROUND 1900 HAS NOT TAKEN ANYTHING FOR SYMPTOMS, STATES "THERE'S NOTHING THAT WORKS" HAD EGD 09/[address] SERRANO--GASTRITIS, DUODENITIS, LOPEZ'S ESOPHAGITIS, QUESTIONABLE HEALING ULCERS HAS BEEN PRESCRIBED MOST RECENTLY --ESOMEPRAZOLE, DICYCLOMINE, HYOSCYAMINE, ZOFRAN, PHENERGAN-- WELL OTHER MEDICATIONS FOR THIS PROBLEM IN THE PAST PCP: DIDIER, SOURAV TORREZ--SEEN THERE A COUPLE OF WEEKS AGO FOR FOLLOW UP FROM LAST ER VISIT Allergies and Home Medications Allergies Coded Allergies: NKANo Known Allergies (Verified Allergy, Unknown, 01/18/18) Home Medications Dicyclomine HCl 10 Mg Capsule, 10 MG PO TID PRN for DISCOMFORT, (Reported) Dicyclomine HCl 20 Mg Tablet, 20 MG PO Q6H Prescribed by: ORI EUGENE on 01/18/18 0623 Dicyclomine HCl 20 Mg Tablet, 20 MG PO Q6H Prescribed by: ORI EUGENE on 02/16/18 0525 Hyoscyamine Sulfate 0.125 Mg Tab.subl, 1-2 TAB SL Q4H Prescribed by: ORI EUGENE on 01/18/18 0623 Hyoscyamine Sulfate 0.125 Mg Tab.subl, 1-2 TAB SL Q4H Prescribed by: ORI EUGENE on 02/16/18 0525 Lovastatin 20 Mg Tablet, 10 MG PO DAILY, (Reported) TAKES 1/2 (20MG) TABLET Norgestimate-Ethinyl Estradiol 1 Each Tablet, 1 TAB PO DAILY, (Reported) Ondansetron 8 Mg Tab.rapdis, 8 MG PO Q4H Prescribed by: ORI EUGENE on 01/18/18622 Ondansetron 8 Mg Tab.rapdis, 8 MG PO Q4H Prescribed by: ORI EUGENE on 02/16/18524 Pantoprazole Sodium 40 Mg Tablet.dr, 40 MG PO DAILY, (Reported) Pantoprazole Sodium 40 Mg Tablet.dr, 40 MG PO DAILY Prescribed by: ORI EUGENE on 02/16/18524 Promethazine HCl 25 Mg Supp.rect, 25 MG RC Q4H Prescribed by: ORI EUGENE on 01/18/18622 Promethazine HCl 25 Mg Supp.rect, 25 MG RC Q4H Prescribed by: ORI EUGENE on 02/16/18524 Spironolactone 100 Mg Tablet, 100 MG PO BID, (Reported) Sucralfate 1 Gm Tablet, 1 GM PO ACHS, (Reported) Sucralfate 1 Gm Tablet, 1 GM PO QIDACHS Prescribed by: ORI EUGENE on 02/16/18524 Patient Home Medication List Home Medication List Reviewed: Yes Review of Systems Review of Systems Constitutional: no symptoms reported Respiratory: No Symptoms Reported Cardiovascular: No Symptoms Reported Gastrointestinal: See HPI, Abdominal Pain, Nausea; Denies Vomiting Genitourinary: No Symptoms Reported Musculoskeletal: no symptoms reported Skin: no symptoms reported Psychiatric/Neurological: No Symptoms Reported Endocrine: No Symptoms Reported Hematologic/Lymphatic: No Symptoms Reported Past Umxvkea-Erqoqu-Pdkoeu Hx Patient Social History Alcohol Use: Occasionally Uses (HISTORY OF MODERATE TO HEAVY USE, NOW CLAIMS ONLY OCCASIONAL USE) Recreational Drug Use: Yes (THC " A TEEN" PER PT, BUT TESTED + FOR THC ) Smoking Status: Current Everyday Smoker (1 PPD) Type Used: Cigarettes Recent Foreign Travel: No Contact w/Someone Who Travel: No Recent Hopitalizations: No Immunizations Up To Date Tetanus Booster (TDap): Unknown Date of Influenza Vaccine: Feb 17, 2012 Seasonal Allergies Seasonal Allergies: No Past Medical History Surgeries: Yes (DENTAL, EGD'S/COLONOSCOPIES; URETHRAL DILATIONS) Abdominal Respiratory: No Cardiac: Yes High Cholesterol, Hypertension Neurological: No Reproductive Disorders: Yes ("LOW TESTOSTERONE" ) Female Reproductive Disorders: Denies, Polycystic Ovarian Dis Sexually Transmitted Disease: No HIV/AIDS: No Genitourinary: No Gastrointestinal: Yes (CHRONIC GASTRITIS) Gastroesophageal Reflux, Esophagitis, Hiatal Hernia, Gall Bladder Disease Musculoskeletal: Yes (BACK PAIN DUE TO WEIGHT) Chronic Back Pain Endocrine: Yes (MORBID OBESITY) HEENT: Yes (TEETH REMOVED) Cancer: No Psychosocial: Yes (MILD ANXIETY) Anxiety Integumentary: No Blood Disorders: No Adverse Reaction/Blood Tranf: No Family Medical History Alzheimer's disease MATERNAL GRANDMOTHER Arthritis MATERNAL GRANDMOTHER Diabetes mellitus MATERNAL GRANDMOTHER FH: lung cancer 19 FATHER FH: sleep apnea MATERNAL GRANDMOTHER FH: stroke MATERNAL GRANDMOTHER FH: thyroid cancer 19 MOTHER Thyroid disease 19 MOTHER Cancer Physical Exam Vital Signs Vital Signs - First Documented 02/16/18 03:10 Temp 98.2 Pulse 68 Resp 16 B/P (MAP) 147/103 (118) Pulse Ox 98 O2 Delivery Room Air Capillary Refill : Height/Weight/BMI Height: 5'7.00" Weight: 330lbs. 0.0oz. 149.563116vx; 51.7 BMI Method:Stated General Appearance: obese (MORBIDLY), other (DRAMATIC, MOANING LOUDLY AT TIMES. HOLDING EPIGASTRIC AREA) HEENT: other (EDENTULOUS) Respiratory: normal breath sounds, no respiratory distress, no accessory muscle use Cardiovascular: regular rate, rhythm, no edema, no murmur Gastrointestinal: normal bowel sounds, soft, no organomegaly, no pulsatile mass ; No distended, No guarding, No rebound; tenderness (DIFFUSE UPPER ABDOMINAL TENDERNESS, BUT MOST TENDER IN EPIGASTRIC AREA. 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, no motor/sensory deficits, alert, oriented x 3 Skin: normal color, warm/dry Progress/Results/Core Measures Results/Orders Lab Results Laboratory Tests Test 02/16/18 03:20 02/16/18 04:43 Range/Units Urine Color YELLOW Urine Clarity CLEAR Urine pH 7 5-9 Urine Specific [place] 1.010 L 1.016-1.022 Urine Protein NEGATIVE NEGATIVE Urine Glucose (UA) NEGATIVE NEGATIVE Urine Ketones NEGATIVE NEGATIVE Urine Nitrite NEGATIVE NEGATIVE Urine Bilirubin NEGATIVE NEGATIVE Urine Urobilinogen NORMAL NORMAL MG/DL Urine Leukocyte Esterase NEGATIVE NEGATIVE Urine RBC (Auto) NEGATIVE NEGATIVE Urine RBC NONE /HPF Urine WBC NONE /HPF Urine Squamous Epithelial Cells 5-10 /HPF Urine Crystals NONE /LPF Urine Bacteria FEW H /HPF Urine Casts NONE /LPF Urine Mucus NEGATIVE /LPF Urine Culture Indicated NO Urine Test NEGATIVE NEGATIVE Urine Opiates Screen NEGATIVE NEGATIVE Urine Oxycodone Screen NEGATIVE NEGATIVE Urine Methadone Screen NEGATIVE NEGATIVE Urine Propoxyphene Screen NEGATIVE NEGATIVE Urine Barbiturates Screen NEGATIVE NEGATIVE Ur Tricyclic Antidepressants Screen NEGATIVE NEGATIVE Urine Phencyclidine Screen NEGATIVE NEGATIVE Urine Amphetamines Screen NEGATIVE NEGATIVE Urine Methamphetamines Screen NEGATIVE NEGATIVE Urine Benzodiazepines Screen NEGATIVE NEGATIVE Urine Cocaine Screen NEGATIVE NEGATIVE Urine Cannabinoids Screen POSITIVE H NEGATIVE White Blood Count 9.2 4.3-11.0 10^3/uL Red Blood Count 5.22 4.35-5.85 10^6/uL Hemoglobin 16.0 11.5-16.0 G/DL Hematocrit 48 35-52 % Mean Corpuscular Volume 91 80-99 FL Mean Corpuscular Hemoglobin 31 25-34 PG Mean Corpuscular Hemoglobin Concent 34 32-36 G/DL Red Cell Distribution Width 13.0 10.0-14.5 % Platelet Count 285 130-400 10^3/uL Mean Platelet Volume 10.1 7.4-10.4 FL Neutrophils (%) (Auto) 44 42-75 % Lymphocytes (%) (Auto) 41 12-44 % Monocytes (%) (Auto) 9 0-12 % Eosinophils (%) (Auto) 6 0-10 % Basophils (%) (Auto) 0 0-10 % Neutrophils # (Auto) 4.0 1.8-7.8 X 10^3 Lymphocytes # (Auto) 3.8 1.0-4.0 X 10^3 Monocytes # (Auto) 0.8 0.0-1.0 X 10^3 Eosinophils # (Auto) 0.5 H 0.0-0.3 10^3/uL Basophils # (Auto) 0.0 0.0-0.1 10^3/uL Sodium Level 138 135-145 MMOL/L Potassium Level 4.1 3.6-5.0 MMOL/L Chloride Level 104 98-107 MMOL/L Carbon Dioxide Level 23 21-32 MMOL/L Anion Gap 11 5-14 MMOL/L Blood Urea Nitrogen 14 7-18 MG/DL Creatinine 0.82 0.60-1.30 MG/DL Estimat Glomerular Filtration Rate > 60 BUN/Creatinine Ratio 17 Glucose Level 91 70-105 MG/DL Calcium Level 10.0 8.5-10.1 MG/DL Corrected Calcium 8.5-10.1 MG/DL Magnesium Level 2.6 H 1.8-2.4 MG/DL Total Bilirubin 0.3 0.1-1.0 MG/DL Aspartate Amino Transf (AST/SGOT) 29 5-34 U/L Alanine Aminotransferase (ALT/SGPT) 43 0-55 U/L Alkaline Phosphatase 77 40-136 U/L Total Protein 9.3 H 6.4-8.2 GM/DL Albumin 4.7 H 3.2-4.5 GM/DL Amylase Level 58 25-125 U/L Lipase 76 8-78 U/L My Orders Orders - JABIERANTHONYA K DO Saline Lock/Iv-Start (02/16/18 03:18) Amylase (02/16/18 03:18) Cbc With Automated Diff (02/16/18 03:18) Comprehensive Metabolic Panel (02/16/18 03:18) Drug Screen Stat (Urine) (02/16/18 03:18) Lipase (02/16/18 03:18) Magnesium (02/16/18 03:18) Ua Culture If Indicated (02/16/18 03:18) Saline Lock/Iv-Start (02/16/18 03:18) Lactated Ringers (Lr 1000 Ml Iv Solution (02/16/18 03:18) Ondansetron Injection (Zofran Injectio (02/16/18 03:30) Hyoscyamine Sl Tablet (Levsin Sl Tablet) (02/16/18 03:30) Ketorolac Injection (Toradol Injection) (02/16/18 03:18) Pantoprazole Injection (Protonix Injecti (02/16/18 03:18) Urine Bedside (02/16/18 03:18) Hcg,Qualitative Urine (02/16/18 03:41) Ketorolac Injection (Toradol Injection) (02/16/18 04:45) Ondansetron Oral Dissolve Tab (Zofran O (02/16/18 04:45) Pantoprazole Tablet (Protonix Tablet) (02/16/18 04:58) Rx-Dicyclomine Capsule (Rx-Bentyl Capsul (02/16/18 05:27) Rx-Hyoscyamine Tab (Rx-Levsin Sl) (02/16/18 05:27) Rx-Ondansetron Po (Rx-Zofran Po) (02/16/18 05:27) Medications Given in ED Current Medications Medications Dose Ordered Sig/Moises Route Start Time Stop Time Status Last Admin Dose Admin Hyoscyamine Sulfate 0.125 mg ONCE ONCE SL 02/16/18 03:30 02/16/18 03:31 DC 02/16/18 04:55 0.125 MG Ketorolac Tromethamine 60 mg ONCE ONCE IM 02/16/18 04:45 02/16/18 04:46 DC 02/16/18 04:55 60 MG Ondansetron Base 8 mg ONCE ONCE PO 02/16/18 04:45 02/16/18 04:46 DC 02/16/18 04:55 8 MG Pantoprazole Sodium 40 mg STK-MED ONCE PO 02/16/18 04:58 02/16/18 05:03 DC 02/16/18 05:04 40 MG Vital Signs/I&O 02/16/18 02/16/18 03:10 05:42 Temp 98.2 97.9 Pulse 68 70 Resp 16 12 B/P (MAP) 147/103 (118) 147/103 Pulse Ox 98 99 O2 Delivery Room Air Room Air Progress Progress Note : Progress Note UNABLE TO OBTAIN IV ACCESS, DESPITE MULTIPLE ATTEMPTS, BUT ABLE TO DO LAB DRAW-- PT STATES THIS IS NORMAL AND THAT THEY ALWAYS HAVE TO PUT AN IV IN HER NECK MEDS GIVEN IM OR PO SYMPTOMS IMPROVED/RESOLVED AT DISMISSAL. Departure Impression Primary Impression: Epigastric abdominal pain Additional Impressions: Biliary colic Hx of gastritis Disposition: 01 HOME, SELF-CARE Condition: Stable Departure-Patient Inst. Referrals: [facility] (PCP/Family) Primary Care Physician JODY SERRANO DO Patient Instructions: Acute Abdomen (Belly Pain), Adult (DC), POSS GALLSTONE-W/ BILIARY COLIC Add. Discharge Instructions: CLEAR LIQUIDS--WATER, BROTH, JELLO, GATORADE NO FOOD TODAY, ONLY CLEAR LIQUIDS TOMORROW IF YOU ARE BETTER, ADD BRATS DIET TO CLEAR LIQUIDS--BANANAS, RICE, APPLESAUCE, TOAST, SALTINES CALL DR. SERRANO'S OFFICE TODAY TO ARRANGE FOR FOLLOW UP APPOINTMENT. Scripts Promethazine HCl (Phenergan) 25 Mg Supp.rect 25 MG RC Q4H for Nausea/Vomiting, #10 SUPP.RECT Prov: ORI EUGENE DO 02/16/18 Dicyclomine HCl (Dicyclomine HCl) 20 Mg Tablet 20 MG PO Q6H for Abdominal Pain, #20 TAB Prov: ORI EUGENE DO 02/16/18 Ondansetron (Zofran Odt) 8 Mg Tab.rapdis 8 MG PO Q4H for Nausea/Vomiting, #14 TAB Prov: ORI EUGENE DO 02/16/18 Hyoscyamine Sulfate (Levsin-Sl) 0.125 Mg Tab.subl 1-2 TAB SL Q4H for Abdominal Pain, #15 TAB Prov: ORI EUGENE DO 02/16/18 Sucralfate (Carafate) 1 Gm Tablet 1 GM PO QIDACHS, #60 TAB Prov: ORI EUGENE DO 02/16/18 Pantoprazole Sodium (Protonix) 40 Mg Tablet.dr 40 MG PO DAILY, #15 TAB Prov: ORI EUGENE DO 02/16/18 ORI EUGENE DO Feb 16, 2018 03:26
[2018-02-16] MEDS ORDERED: ONDANSETRON 4 MG/2 ML (SDV) Z0FRAN IVP ONE (03:30)
[2018-02-16] MEDS ORDERED: HYOSCYAMINE 0.125 MG (LEVSIN) TAB SL ONE (03:30)
[2018-02-16 03:37] LABS: BILIRUBIN,URINE NEGATIVE (NEGATIVE); CLARITY,URINE CLEAR; COLOR,URINE YELLOW; GLUCOSE, URINE (UA) NEGATIVE (NEGATIVE); KETONES,URINE NEGATIVE (NEGATIVE); LEUKOCYTE ESTERASE ,URINE NEGATIVE (NEGATIVE); NITRITE,URINE NEGATIVE (NEGATIVE); PH,URINE 7 (5-9); PROTEIN,URINE NEGATIVE (NEGATIVE); UROBILINOGEN,URINE NORMAL (NORMAL)
[2018-02-16 03:44] LABS: BACTERIA,URINE FEW /HPF
[2018-02-16 03:47] LABS: AMPHETAMINE SCREEN, URINE NEGATIVE (NEGATIVE); BARBITURATE SCREEN URINE NEGATIVE (NEGATIVE); BENZODIAZEPINES SCREEN URINE NEGATIVE (NEGATIVE); CANNABINOID SCREEN, URINE POSITIVE (NEGATIVE); COCAINE SCREEN URINE NEGATIVE (NEGATIVE); METHADONE STAT NEGATIVE (NEGATIVE); METHAMPHETAMINE SCREEN URINE S NEGATIVE (NEGATIVE); OPIATE SCREEN URINE NEGATIVE (NEGATIVE); OXYCODONE STAT NEGATIVE (NEGATIVE); PROPOXYPHENE STAT NEGATIVE (NEGATIVE); TRICYCLIC ANTIDEPRESSANTS SCRE NEGATIVE (NEGATIVE)
[2018-02-16] MEDS ORDERED: ONDANSETRON 8 MG (ZOFRAN) ORAL DISSOLVE TAB PO ONE (04:45)
[2018-02-16] MEDS ORDERED: KETOROLAC 60 MG/2 ML VIAL IM ONE (04:45)
[2018-02-16 04:49] LABS: BASOPHILS % (AUTO) 0 % (0-10); EOSINOPHILS # (AUTO) 0.5 10^3/uL (0.0-0.3); EOSINOPHILS % (AUTO) 6 % (0-10); HEMATOCRIT 48 % (35-52); LYMPHOCYTES # (AUTO) 3.8 X 10^3 (1.0-4.0); LYMPHOCYTES % (AUTO) 41 % (12-44); MEAN CORPUSCULAR HEMOGLOBIN 31 PG (25-34); MEAN CORPUSCULAR HGB CONC 34 G/DL (32-36); MEAN CORPUSCULAR VOLUME 91 FL (80-99); MEAN PLATELET VOLUME 10.1 FL (7.4-10.4); MONOCYTES # (AUTO) 0.8 X 10^3 (0.0-1.0); MONOCYTES % (AUTO) 9 % (0-12); NEUTROPHILS % (AUTO) 44 % (42-75); PLATELET COUNT 285 10^3/uL (130-400); RED BLOOD COUNT 5.22 10^6/uL (4.35-5.85); WHITE BLOOD COUNT 9.2 10^3/uL (4.3-11.0)
[2018-02-16] MEDS ORDERED: PANTOPRAZOLE 40 MG (PROTONIX) TAB PO ONE (04:58)
[2018-02-16 05:12] LABS: ALANINE AMINOTRANSFERASE 43 U/L (0-55); ALBUMIN 4.7 GM/DL (3.2-4.5); ALKALINE PHOSPHATASE 77 U/L (40-136); AMYLASE 58 U/L (25-125); BILIRUBIN,TOTAL 0.3 MG/DL (0.1-1.0); BUN/CREATININE RATIO 17; CARBON DIOXIDE 23 MMOL/L (21-32); CHLORIDE 104 MMOL/L (98-107); CREATININE SERUM 0.82 MG/DL (0.60-1.30); GFR ESTIMATED > 60; GLUCOSE 91 MG/DL (70-105); LIPASE 76 U/L (8-78); MAGNESIUM 2.6 MG/DL (1.8-2.4); POTASSIUM 4.1 MMOL/L (3.6-5.0); SODIUM 138 MMOL/L (135-145); TOTAL PROTEIN 9.3 GM/DL (6.4-8.2)
[2018-02-16] MEDS ORDERED: PROM25SU43 RC (05:25)
[2018-02-16] MEDS ORDERED: HYOS0.1283 SL (05:25)
[2018-02-16] MEDS ORDERED: SUCR1TAB36 PO (05:25)
[2018-02-16] MEDS ORDERED: ONDA8TAB9 PO (05:25)
[2018-02-16] MEDS ORDERED: PANT40TA2 PO (05:25)
[2018-02-16] MEDS ORDERED: DICY20TA10 PO (05:25)
[2018-02-16] MEDS ORDERED: RX-HYOSCYAMINE 0.125 MG SL (LEVSIN) PPK#6 SL STA (05:27)
[2018-02-16] MEDS ORDERED: RX-ONDANSETRON 4 MG ODT (ZOFRAN) PPK #4 PO STA (05:27)
[2018-02-16] MEDS ORDERED: RX-DICYCLOMINE 10 MG (BENTYL) CAP PPK#4 PO STA (05:27)
[2018-02-16 05:42] VITALS: BP 147/103
== END 2018-02-16 05:42 | disposition home or self-care (01) ==
LOC: EDUNIT# 02:56 → ER 02:58
DX: K80.51 Calculus of bile duct without cholangitis or cholecystitis with obstruction (principal); E78.00 Pure hypercholesterolemia, unspecified; I10 Essential (primary) hypertension; E66.01 Morbid (severe) obesity due to excess calories; F41.9 Anxiety disorder, unspecified; K21.9 Gastro-esophageal reflux disease without esophagitis; F12.10 Cannabis abuse, uncomplicated; F17.210 Nicotine dependence, cigarettes, uncomplicated; Z87.19 Personal history of other diseases of the digestive system; Z87.448 Personal history of other diseases of urinary system; Z80.8 Family history of malignant neoplasm of other organs or systems; Z80.1 Family history of malignant neoplasm of trachea, bronchus and lung; Z68.43 Body mass index [BMI] 50.0-59.9, adult
CPT/HCPCS: 36415; 80053; 80306; 81000; 82150; 83690; 83735; 84703; 85025